=== PATIENT | female | born 1965 | race Caucasian/White ===

== ENCOUNTER 2017-06-18 10:49 | Observation (INO) | payer MEDICAID ==
--- OUTSIDE RECORDS SUMMARY | 2017-06-18 10:52 | XMS REPORT | Clinical Summary ---
:1965 Author Organization [facility] Address [address] [place] [address] Care Team Providers Name Role Phone Kobi Enriquez MD Primary Care Provider Allergies Active Allergy Reactions Severity Noted Date Comments Hydromorphone Itching 05/01/2016 Cyclobenzaprine Rash Low 05/01/2016 Morphine Itching High 05/01/2016 Exacerbates asthma Current Medications Prescription Sig. Disp. Refills Start Date End Date Status PROAIR HFA 90 INL 2 PUFFS PO Q 6 H 5 03/18/2016 Active mcg/actuation inhaler PRF SHORTNESS OF BREATH. ADVAIR DISKUS 250-50 INL 1 PUFF PO BID 5 03/18/2016 Active mcg/dose DISKUS gabapentin (NEURONTIN) TAKE 1 TO 2 CAPSULES 1 04/01/2016 Active 300 mg capsule BY MOUTH EVERY NIGHT AT BEDTIME FOR NERVE PAIN tiZANidine (ZANAFLEX) 4 1 BY MOUTH 2 TIMES A 0 03/03/2016 Active MG tablet DAY prn senna (SENOKOT) 8.6 mg Take 1 tablet by Active tablet mouth 2 (two) times a day as needed. clonIDINE (CATAPRES) Take 0.1 mg by mouth Active 0.1 MG tablet every 8 (eight) hours as needed for high blood pressure (for withdrawal symptoms). oxyCODone (ROXICODONE) Take 30 mg by mouth Active 30 MG immediate release every 8 (eight) hours tablet as needed for moderate pain. Active Problems No known active problems Family History Medical History Relation Name Comments Stroke Mother Relation Name Status Comments Mother Social History Tobacco Use Types Packs/Day Years Used Date Current Every Day Smoker 0.5 28 Smokeless Tobacco: Never Used Alcohol Use Drinks/Week oz/Week Comments Yes occasional Sex Assigned at Date Recorded Not on file Last Filed Vital Signs Not on file Plan of Treatment Health Maintenance Due Date Last Done Comments PAP SMEAR 1986 COLONOSCOPY 12/19/2015 MAMMOGRAM 12/19/2015 SHINGRIX VACCINE (#1) 12/19/2015 INFLUENZA VACCINE 09/08/2017 Implants Implanted Type Area Quilter Fixer Device Expiration Model / Identifier Date Serial / Lot Pump Infsn Synchromed Ii W/ Fltr Sut Loop Prgrmbl Rsvr 20ml - [id number] Neurosurgical N/A: [employer] 09/04/2017 [id number] / Implanted: 05/04/2016 (Quantity not on file) Implants N/A NEUROMODULATION [id number] / [id number] Results Not on fileafter 06/17/2016 Insurance Payer Benefit Plan / Group Subscriber ID Type Phone Address 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
--- NOTE | 2017-06-18 11:48 | RAD REPORT ---
EXAM DESCRIPTION: RAD - Chest Single View - 06/18/2017 11:43 am CLINICAL HISTORY: Chest pain. COMPARISON: None. FINDINGS: Portable technique limits examination quality. The lungs are grossly clear. The heart is normal in size. No displaced fractures. IMPRESSION: No acute intrathoracic process suspected.
[2017-06-18] MEDS ORDERED: ASPIRIN 81 MG CHEWABLE TABLET ONE (11:49)
[2017-06-18] MEDS ORDERED: NA CHLORIDE 0.9% 1,000 ML ONE (11:49)
[2017-06-18 11:52] LABS: Absolute Lymphocytes (CBC) 1.3 K/uL (0.7-4.9); Absolute Monocytes 0.6 K/uL (0.1-1.3); Absolute Neutrophil 1.4 K/uL (1.8-8.0); Eosinophils % 7.2 % (0-4.4); Lymphocytes % 35.3 % (15.3-44.8); MCH 29.8 pg (27.0-35.0); MCV 89.2 fL (80-100); MPV 9.7 fL (7.6-11.3); Monocytes % 16.8 % (3.3-12.3); RBC Red Blood Cell Count 4.71 M/uL (3.86-4.86)
[2017-06-18 11:55] LABS: Protime INR 0.98
[2017-06-18 12:05] LABS: Potassium 3.5 mEq/L (3.6-5.0)
[2017-06-18 12:09] LABS: Albumin 4.4 g/dL (3.2-5.5); Bilirubin Total 0.5 mg/dL (0.3-1.2); CKMB Creatine Kinase MB 3.5 ng/ml (0.3-4.0); Magnesium 1.8 mg/dL (1.8-2.5); Protein, Total 7.5 g/dL (6.0-8.3)
[2017-06-18 12:11] LABS: Bilirubin Direct 0.1 mg/dL (0-0.2)
[2017-06-18] MEDS ORDERED: POTASSIUM CL SA 10 MEQ TAB PO ONE (12:39)
--- NOTE | 2017-06-18 12:41 | EDPHYS ---
Physician Documentation [facility] Name: Susan Bolivar Age: 51 yrs Sex: Female : 1965 Arrival Date: 06/18/2017 Time: 10:52 Bed 2 Private MD: Devonte sEcudero E ED Physician Mohsen Bray HPI: 06/18 11:23 This 51 yrs old Female presents to ER via Ambulatory with complaints of Chest herber Pain. 11:23 The patient or guardian reports chest pain that is located primarily in the substernal herber area, anterior chest wall. Onset: 1 month(s) ago. The pain does not radiate. Associated signs and symptoms: Pertinent positives: None. The chest pain is described as sharp, stabbing. Duration: The patient or guardian reports multiple episodes, with no pattern. The patient has experienced similar episodes in the past, multiple times. 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 - Social history:: Smoking status: Patient uses tobacco products, smokes one-half pack cigarettes per day. - Family history:: not pertinent. ROS: 11:23 Constitutional: Negative for fever, chills, and weight loss, Eyes: Negative for injury, herber pain, redness, and discharge, ENT: Negative for injury, pain, and discharge, Neck: Negative for injury, pain, and swelling, Respiratory: Negative for shortness of breath, cough, wheezing, and pleuritic chest pain, Abdomen/GI: Negative for abdominal pain, nausea, vomiting, diarrhea, and constipation, Back: Negative for injury and pain, : Negative for injury, bleeding, discharge, and swelling, MS/Extremity: Negative for injury and deformity, Skin: Negative for injury, rash, and discoloration, Neuro: Negative for headache, weakness, numbness, tingling, and seizure, Psych: Negative for depression, anxiety, suicide ideation, homicidal ideation, and hallucinations, Allergy/Immunology: Negative for hives, rash, and allergies, Endocrine: Negative for neck swelling, polydipsia, polyuria, polyphagia, and marked weight changes, Hematologic/Lymphatic: Negative for swollen nodes, abnormal bleeding, and unusual bruising. 11:23 Cardiovascular: Positive for chest pain, of the chest. Exam: 11:23 Constitutional: This is a well developed, well nourished patient who is awake, alert, herber and in no acute distress. Head/Face: Normocephalic, atraumatic. Eyes: Pupils equal round and reactive to light, extra-ocular motions intact. Lids and lashes normal. Conjunctiva and sclera are non-icteric and not injected. Cornea within normal limits. Periorbital areas with no swelling, redness, or edema. ENT: Nares patent. No nasal discharge, no septal abnormalities noted. Tympanic membranes are normal and external auditory canals are clear. Oropharynx with no redness, swelling, or masses, exudates, or evidence of obstruction, uvula midline. Mucous membranes moist. Neck: Trachea midline, no thyromegaly or masses palpated, and no cervical lymphadenopathy. Supple, full range of motion without nuchal rigidity, or vertebral point tenderness. No Meningismus. Chest/axilla: Normal chest wall appearance and motion. Nontender with no deformity. No lesions are appreciated. Cardiovascular: Regular rate and rhythm with a normal S1 and S2. No gallops, murmurs, or rubs. Normal PMI, no JVD. No pulse deficits. Respiratory: Lungs have equal breath sounds bilaterally, clear to auscultation and percussion. No rales, rhonchi or wheezes noted. No increased work of breathing, no retractions or nasal flaring. Abdomen/GI: Soft, non-tender, with normal bowel sounds. No distension or tympany. No guarding or rebound. No evidence of tenderness throughout. Back: No spinal tenderness. No costovertebral tenderness. Full range of motion. Skin: Warm, dry with normal turgor. Normal color with no rashes, no lesions, and no evidence of cellulitis. MS/ Extremity: Pulses equal, no cyanosis. Neurovascular intact. Full, normal range of motion. Neuro: Awake and alert, GCS 15, oriented to person, place, time, and situation. Cranial nerves II-XII grossly intact. Motor strength 5/5 in all extremities. Sensory grossly intact. Cerebellar exam normal. Normal gait. Psych: Awake, alert, with orientation to person, place and time. Behavior, mood, and affect are within normal limits. Vital Signs: 11:05 BP 132 / 99; Pulse 82; Resp 17; Temp 98.4; Pulse Ox 98% on R/A; Weight 81.65 kg; Height aj 5 ft. 4 in. (162.56 cm); Pain 5/10; 11:55 BP 118 / 73; Pulse 69; Resp 16; Pulse Ox 97% ; Pain 5/10; jl7 12:45 BP 116 / 78; Pulse 62; Resp 16; Pulse Ox 97% ; jl7 13:30 BP 142 / 85; Pulse 48; Resp 16; Pulse Ox 97% ; jl7 13:56 BP 125 / 92; Pulse 50; Resp 16; Pulse Ox 100% ; jl7 14:30 BP 119 / 71; Pulse 54; Resp 16; Pulse Ox 100% ; jl7 11:05 Body Mass Index 30.90 (81.65 kg, 162.56 cm) MDM: 11:13 Patient medically screened. [facility] 11:27 Data reviewed: vital signs, nurses notes, lab test result(s), EKG, radiologic studies. [facility] 06/18 11:14 Order name: Basic Metabolic Panel; Complete Time: 12:38 [facility] 06/18 11:14 Order name: BNP; Complete Time: 12:38 [facility] 06/18 11:14 Order name: CBC with Diff; Complete Time: 13:56 [facility] 06/18 11:14 Order name: Ckmb; Complete Time: 12:38 [facility] 06/18 11:14 Order name: CPK; Complete Time: 12:38 [facility] 06/18 11:14 Order name: LFT's; Complete Time: 12:38 [facility] 06/18 11:14 Order name: Magnesium; Complete Time: 12:38 [facility] 06/18 11:14 Order name: PT-INR; Complete Time: 12:09 [facility] 06/18 11:14 Order name: Ptt, Activated; Complete Time: 12:09 [facility] 06/18 11:14 Order name: Troponin (emerg Dept Use Only); Complete Time: 12:09 [facility] 06/18 11:14 Order name: XRAY Chest (1 view); Complete Time: 12:09 [facility] 06/18 11:14 Order name: Lipase; Complete Time: 12:38 [facility] 06/18 11:23 Order name: CT Chest For PE Angio; Complete Time: 13:56 [facility] 06/18 13:36 Order name: CBC Smear Scan; Complete Time: 13:56 [facility] 06/18 11:14 Order name: EKG; Complete Time: 11:15 [facility] 06/18 11:14 Order name: Cardiac monitoring; Complete Time: 11:36 [facility] 06/18 11:14 Order name: EKG - Nurse/Tech; Complete Time: 11:36 [facility] 06/18 11:14 Order name: IV Saline Lock; Complete Time: 11:36 [facility] 06/18 11:14 Order name: Labs collected and sent; Complete Time: 11:36 [facility] 06/18 11:14 Order name: O2 Per Protocol; Complete Time: 11:36 [facility] 06/18 11:14 Order name: O2 Sat Monitoring; Complete Time: 11:36 [facility] 06/18 12:43 Order name: CONS Physician Consult [facility] 06/18 12:43 Order name: Echo with Doppler EDDE Administered Medications: 11:56 Drug: NS 0.9% 1000 ml Route: IV; Rate: 75 ml/hr; Site: right antecubital; jl7 14:47 Follow up: IV Status: Infusion continued upon admission jl7 11:56 Drug: Aspirin 162 mg Route: PO; jl7 14:47 Follow up: Response: No adverse reaction jl7 12:40 Drug: Potassium Chloride 40 mEq Route: PO; jl7 14:47 Follow up: Response: No adverse reaction jl7 13:27 Drug: Lovenox 1 mg/kg Route: Sub-Q; Site: abdomen; jl7 14:47 Follow up: Response: No adverse reaction jl7 Disposition: 06/18/17 12:40 Hospitalization ordered by Donovan Laureano for Observation. Preliminary diagnosis is Chest pain, unspecified. - Bed requested for Telemetry/MedSurg (observation). - Status is Observation. jl7 - Condition is Stable. - Problem is new. - Symptoms have improved. UTI on Admission? No Signatures: Dispatcher [employer] EDDE Chayo Berumen RN RN dw Myers, Amanda RN Mohsen Coto MD MD cha Leal, Jahala, RN RN jl7 Corrections: (The following items were deleted from the chart) 13:43 12:40 Hospitalization Ordered by Donovan Laureano DO for Observation. Preliminary dw diagnosis is Chest pain, unspecified. Bed requested for Telemetry/MedSurg (observation). Status is Observation. Condition is Stable. Problem is new. Symptoms have improved. UTI on Admission? No. herber 14:48 13:43 06/18/2017 12:40 Hospitalization Ordered by Donovan Laureano DO for Observation. jl7 Preliminary diagnosis is Chest pain, unspecified. Bed requested for Telemetry/MedSurg (observation). Status is Observation. Condition is Stable. Problem is new. Symptoms have improved. UTI on Admission? No. dw
--- NOTE | 2017-06-18 12:41 | ER ---
Nurse's Notes [facility] Name: Susan Bolivar Age: 51 yrs Sex: Female : 1965 Arrival Date: 06/18/2017 Time: 10:52 Bed 2 Private MD: Devonte Escudero E Diagnosis: Chest pain, unspecified Presentation: 06/18 11:03 Presenting complaint: Patient states: Sternal chest pain for 1 month that radiates to aj left jaw and shoulder. Transition of care: patient was not received from another setting of care. Onset of symptoms was May 18, 2017. Initial Sepsis Screen: Does the patient meet any 2 criteria? No. Patient's initial sepsis screen is negative. Does the patient have a suspected source of infection? No. Patient's initial sepsis screen is negative. Care prior to arrival: None. 11:03 Method Of Arrival: Ambulatory 11:03 Acuity: TYRONE 3 aj Triage Assessment: 11:05 General: Appears in no apparent distress. Behavior is calm, cooperative. Pain: aj Complains of pain in chest Pain currently is 5 out of 10 on a pain scale. Neuro: Level of Consciousness is awake, alert, obeys commands, Oriented to person, place, time, situation. Cardiovascular: Reports chest pain, Capillary refill < 3 seconds in bilateral fingers. Respiratory: Airway is patent Respiratory effort is even, unlabored, Respiratory pattern is regular, symmetrical. Derm: Skin is intact, is healthy with good turgor, Skin is pink, warm \\T\\ dry. normal. 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 - Social history:: Smoking status: Patient uses tobacco products, smokes one-half pack cigarettes per day. - Family history:: not pertinent. Screenin:55 Abuse screen: Denies threats or abuse. Denies injuries from another. Nutritional jl7 screening: No deficits noted. Tuberculosis screening: No symptoms or risk factors identified. Fall Risk IV access (20 points). Total Bergman Fall Scale indicates No Risk (0-24 pts). Assessment: 11:40 General: Appears in no apparent distress. comfortable, Behavior is calm, cooperative, jl7 appropriate for age. Pain: Complains of pain in anterior aspect of left upper chest Pain radiates to left scapular area and left arm Pain currently is 5 out of 10 on a pain scale. at worst was 10 out of 10 on a pain scale. Quality of pain is described as sharp, stabbing, Pain began 1 month ago Is continuous. Neuro: Level of Consciousness is awake, alert, obeys commands, Oriented to person, place, time, situation. Cardiovascular: Heart tones S1 S2 present Patient's skin is warm and dry. Rhythm is sinus rhythm. Respiratory: Airway is patent Respiratory effort is even, unlabored, Respiratory pattern is regular, symmetrical, Breath sounds are clear bilaterally. GI: Reports "I have been nauseous a few times in the past month." Patient currently denies diarrhea, vomiting. : No signs and/or symptoms were reported regarding the genitourinary system. EENT: No signs and/or symptoms were reported regarding the EENT system. Derm: Skin is pink, warm \\T\\ dry. Musculoskeletal: No signs and/or symptoms reported regarding the musculoskeletal system. 12:30 Reassessment: Patient appears in no apparent distress at this time. No changes from jl7 previously documented assessment. Patient and/or family updated on plan of care and expected duration. Pain level reassessed. Patient is alert, oriented x 3, equal unlabored respirations, skin warm/dry/pink. 13:30 Reassessment: Patient appears in no apparent distress at this time. Patient and/or jl7 family updated on plan of care and expected duration. Pain level reassessed. Patient is alert, oriented x 3, equal unlabored respirations, skin warm/dry/pink. 14:30 Reassessment: No changes from previously documented assessment. Patient and/or family jl7 updated on plan of care and expected duration. Pain level reassessed. Patient is alert, oriented x 3, equal unlabored respirations, skin warm/dry/pink. Vital Signs: 11:05 BP 132 / 99; Pulse 82; Resp 17; Temp 98.4; Pulse Ox 98% on R/A; Weight 81.65 kg; Height aj 5 ft. 4 in. (162.56 cm); Pain 5/10; 11:55 BP 118 / 73; Pulse 69; Resp 16; Pulse Ox 97% ; Pain 5/10; jl7 12:45 BP 116 / 78; Pulse 62; Resp 16; Pulse Ox 97% ; jl7 13:30 BP 142 / 85; Pulse 48; Resp 16; Pulse Ox 97% ; jl7 13:56 BP 125 / 92; Pulse 50; Resp 16; Pulse Ox 100% ; jl7 14:30 BP 119 / 71; Pulse 54; Resp 16; Pulse Ox 100% ; jl7 11:05 Body Mass Index 30.90 (81.65 kg, 162.56 cm) aj ED Course: 10:52 Patient arrived in ED. mr 10:52 Devonte Escudero MD is Private Physician. mr 11:04 Triage completed. aj 11:05 Arm band placed on left wrist. Patient placed in an exam room. aj 11:11 Joel Zepeda RN is Primary Nurse. ae1 11:12 Mohsen Bray MD is Attending Physician. herber 11:19 EKG done, by medical chief technician. reviewed by Mohsen Bray MD. at1 11:36 Initial lab(s) drawn, by sc, sent to lab. EKG done, by medical chief technician. reviewed by Mohsen Bray MD. Inserted saline lock: 22 gauge in right antecubital area, using aseptic technique. Blood collected. 11:37 X-ray completed. Portable x-ray completed in exam room. Patient tolerated procedure ml well. 11:43 XRAY Chest (1 view) In Process Unspecified. EDMS 11:46 Primary Nurse role handed off by Joel Zepeda, LARISSA jl7 11:46 Angela Otoole, LARISSA is Primary Nurse. jl7 11:55 Patient has correct armband on for positive identification. Placed in gown. Bed in low jl7 position. Call light in reach. Side rails up X2. classroom monitor on. Pulse ox on. NIBP on. Warm blanket given. 11:55 Patient maintains SpO2 saturation greater than 95% on room air. jl7 12:[address] via stretcher. jg1 12:32 CT Chest For PE Angio In Process Unspecified. EDMS 12:39 Donovan Laureano DO is Hospitalizing Provider. herber 14:46 No provider procedures requiring assistance completed. Patient admitted, IV remains in jl7 place. Administered Medications: 11:56 Drug: NS 0.9% 1000 ml Route: IV; Rate: 75 ml/hr; Site: right antecubital; jl7 14:47 Follow up: IV Status: Infusion continued upon admission jl7 11:56 Drug: Aspirin 162 mg Route: PO; jl7 14:47 Follow up: Response: No adverse reaction jl7 12:40 Drug: Potassium Chloride 40 mEq Route: PO; jl7 14:47 Follow up: Response: No adverse reaction jl7 13:27 Drug: Lovenox 1 mg/kg Route: Sub-Q; Site: abdomen; jl7 14:47 Follow up: Response: No adverse reaction jl7 Outcome: 12:40 Decision to Hospitalize by Provider. [facility] 14:46 Admitted to Med/surg accompanied by tech, family with patient, via wheelchair, room jl7 205, with chart, Report called to LARISSA Lynn 14:46 Condition: stable 14:46 Discharge instructions given to patient, family, Instructed on the need for admit, Demonstrated understanding of instructions. 14:48 Patient left the ED. jl7 Signatures: Dispatcher [employer] EDNikolay Lagos jb1 Charlee Angulo, RN Mohsen Coto MD MD cha Rivera, Maria mr Garcia, Liliana Pineda, Charlee Brown, pattern fitter EKG Tat1 Joel Zepeda RN RN ae1 Angela Otoole RN RN jl7
--- NOTE | 2017-06-18 12:46 | RAD REPORT ---
EXAM DESCRIPTION: CT - Chest For Pe Angio - 06/18/2017 12:32 pm CLINICAL HISTORY: Chest pain COMPARISON: None. TECHNIQUE: Dynamically enhanced axial 3 mm thick images of the chest were obtained during administra tion of <100> mL Isovue 370 IV contrast. Coronal and oblique reconstruction images were generated and reviewed. Exam utilizes a protocol for optimal evaluation of pulmonary arterial tree. All CT scans are performed using dose optimization technique as appropriate and may include automated exposure control or mA/KV adjustment according to patient size. FINDINGS: A pulmonary embolus is not seen. A thoracic aortic aneurysm is not noted. A pleural effusion is not seen. A pericardial effusion is not seen. A lung consolidation is not present. IMPRESSION: Negative for a pulmonary embolism.
[2017-06-18] MEDS ORDERED: ENOXAPARIN 80 MG/0.8 ML SQ ONE (13:08)
[2017-06-18] MEDS ORDERED: IPRATROPIUM BROM 0.5MG/2.5ML NEB PRN (13:23)
[2017-06-18] MEDS ORDERED: ONDANSETRON 4 MG/2 ML VIAL IV PRN (13:23)
[2017-06-18] MEDS ORDERED: NITROGLYCERIN 0.4 MG/TAB SL PRN (13:23)
[2017-06-18] MEDS ORDERED: HYDROCODONE/APAP 7.5/325 MG TAB PO PRN (13:23)
[2017-06-18] MEDS ORDERED: ALBUTEROL 2.5 MG/3 ML NEB SOL NEB PRN (13:23)
[2017-06-18] MEDS ORDERED: ACETAMINOPHEN 500 MG TAB PO PRN (13:23)
[2017-06-18] MEDS ORDERED: TIZANIDINE 4 MG TABLET PO PRN (13:23)
--- NOTE | 2017-06-18 13:34 | P.HP ---
Certification for Inpatient Patient admitted to: Observation With expected LOS: <2 Midnights Patient will require the following post-hospital care: None Practitioner: I am a practitioner with admitting privileges, knowledge of patient current condition, hospital course, and medical plan of care. Services: Services provided to patient in accordance with Admission requirements found in Title 42 Section 412.3 of the Code of Federal Regulations Patient History Date of Service: 06/18/17 Primary Care Provider: Dr. Escudero; Pain management-Dr. Hill([place]) Reason for admission: Chest pain History of Present Illness: 51-year-old female presented emergency room with chest pain. Patient reported chest pain to the substernal region. It was sharp in nature. She rated the pain about a 10/10. It lasted for several min. It radiated to the back and neck. If associated with some nausea. No vomiting noted. She did not have any shortness of breath or fever at that time. The patient came to the ER for evaluation. In the ER that the patient was evaluated. Initial blood pressure was within normal range. No significant EKG changes noted. CBC unremarkable. Potassium 3.5, creatinine 0.89 with a GFR 67. Troponin less than 0.03. CT of the chest showed no pulmonary embolism or infiltrate. Chest x-ray unremarkable. Due to nature of her symptoms the patient was admitted for evaluation. When I saw the patient in the ER, she was without any significant pain. Patient with history of chronic pain. She has a pain pump and takes need multiple medications for pain. Patient also has some anxiety. Patient smokes about a half a pack per day and drinks on occasion. 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 She has 4 children. 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 - Family History Mother -: Heart disease - Social History Smoking Status: Heavy Tobacco smoker (>10 cigarettes/day) Counseled patient to stop smoking for: less than 10 minutes Smoking therapy provided: Yes Patient receptive to therapy: Yes Alcohol use: Yes CD- Drugs: No Caffeine use: Yes Place of Residence: Home Review of Systems General: As per HPI Eyes: Unremarkable ENT: Unremarkable Respiratory: Unremarkable Cardiovascular: Chest Pain, As per HPI Gastrointestinal: Nausea, As per HPI Genitourinary: Unremarkable Musculoskeletal: Back Pain, As per HPI Integumentary: Unremarkable Neurological: Unremarkable Lymphatics: Unremarkable Physical Examination - Physical Exam General: Alert, In no apparent distress, Oriented x3, Cooperative HEENT: Atraumatic, Normocephalic, PERRLA, Mucous membr. moist/pink Neck: Supple, No Thyromegaly Respiratory: Clear to auscultation bilaterally, Normal air movement Cardiovascular: Normal pulses, Regular rate/rhythm Gastrointestinal: Normal bowel sounds, Soft and benign, Non-distended, No tenderness, No masses, No rebound, No guarding Musculoskeletal: No erythema, No tenderness, No warmth Integumentary: No tenderness/swelling, No erythema, No warmth, No cyanosis Neurological: Normal speech, Normal strength at 5/5 x4 extr, Normal tone, Normal affect Lymphatics: No axilla or inguinal lymphadenopathy - Studies Laboratory Data (last 24 hrs) 06/18/17 11:30: PT 11.6, INR 0.98, APTT 29.3 06/18/17 11:30: WBC 3.6 L, Hgb 14.0, Hct 42.0, Plt Count 192 06/18/17 11:30: B-Natriuretic Peptide 24 06/18/17 11:30: Sodium 139, Potassium 3.5 L, BUN 12, Creatinine 0.89, Glucose 91 , Magnesium 1.8, Total Bilirubin 0.5, AST 25, ALT 20, Alkaline Phosphatase 83, Lipase 15 L Assessment and Plan - Problems (Diagnosis) (1) Chest pain Current Visit: Yes Status: Acute Plan: No significant EKG changes noted. Will continue monitor cardiac enzymes. Echocardiogram ordered. If unremarkable anticipate patient can be discharged later today. Will discuss with cardiology. Will check urine drug screen. Qualifiers: Chest pain type: unspecified Qualified Code(s): R07.9 - Chest pain, unspecified (2) Chronic back pain Current Visit: Yes Status: Chronic Plan: Continue with medication. Patient has pain pump in place. Qualifiers: Back pain laterality: unspecified (3) Anxiety Current Visit: Yes Status: Suspected Plan: Suspect anxiety. Patient appeared slightly anxious. Will check urine drug screen. (4) GERD (gastroesophageal reflux disease) Current Visit: Yes Status: Chronic Plan: Will continue with medication. (5) Tobacco abuse Current Visit: Yes Status: Chronic Plan: Tobacco cessation education will be provided. (6) Alcohol use Current Visit: Yes Status: Chronic Plan: Will provide cessation education. Discharge Plan: Home Plan to discharge in: 24 Hours - Advance Directives Does patient have a Living Will: No Does patient have a Durable POA for Healthcare: No - Code Status/Comfort Care Code Status Assessed: Yes Time Spent Managing Pts Care (In Minutes): 55
[2017-06-18 13:36] LABS: Blood Morphology Comment NOT SEEN (NOT SEEN); Platelet Estimate ADEQ; Urine White Blood Cell Casts OK
--- NOTE | 2017-06-18 15:50 | EKG ---
Test Date: 2017-06-18 Test Time: 11:19:56 Angular Developer: KAYLA MEASUREMENT RESULTS: Intervals: Rate: 67 CT: 158 QRSD: 92 QT: 372 QTc: 393 [place]: P: 21 CT: 158 QRS: 12 T: 1 INTERPRETIVE STATEMENTS: Normal sinus rhythm Nonspecific T wave abnormality Abnormal ECG No previous ECG available for comparison Electronically Signed On 06-18-17 15:48:59 CDT by Fermín Hawthorne
[2017-06-18 16:44] VITALS: BMI 31.4
--- NOTE | 2017-06-18 17:40 | ECHO ---
HEIGHT: 5 ft 4 in WEIGHT: 183 lb 6.4 oz DATE OF STUDY: 06/18/[address]: Donovan Laureano DO 2-DIMENSIONAL: YES M.MODE: YES DOPPLER: YES COLOR FLOW: YES TDS: PORTABLE: DEFINITY: BUBBLE STUDY: DIAGNOSIS: CHEST PAIN CARDIAC HISTORY: CATHERIZATION: NO SURGERY: NO PROSTHETIC VALVE: NO PACEMAKER: NO MEASUREMENTS (cm) DIASTOLIC (NORMALS) SYSTOLIC (NORMALS) IVSd 1.0 (0.6-1.2) LA Diam 3.2 (1.9-4.0) LVEF 60% LVIDd 4.1 (3.5-5.7) LVIDs 2.8 (2.0-3.5) %FS 32% LVPWd 1.1 (0.6-1.2) Ao Diam 2.8 (2.0-3.7) 2 DIMENSIONAL ASSESSMENT: RIGHT ATRIUM: NORMAL LEFT ATRIUM: NORMAL RIGHT VENTRICLE: NORMAL LEFT VENTRICLE: NORMAL TRICUSPID VALVE: NORMAL MITRAL VALVE: NORMAL PULMONIC VALVE: NORMAL AORTIC VALVE: NORMAL PERICARDIAL EFFUSION: NONE AORTIC ROOT: NORMAL LEFT VENTRICULAR WALL MOTION: NORMAL DOPPLER/COLOR FLOW: NORMAL COMMENTS: NORMAL 2-DIMENSIONAL ECHOCARDIOGRAM WITH DOPPLER. NO WALL MOTION ABNORMALITY. NO EFFUSION. TECHNOLOGIST: JOVANI SAAVEDRA
[2017-06-18 19:42] LABS: CKMB Creatine Kinase MB 2.7 ng/ml (0.3-4.0)
[2017-06-18] MEDS ORDERED: ARFORMOTEROL TARTRATE 15 MCG/2 ML VIAL.NEB NEB SCH (20:00)
[2017-06-18 20:21] VITALS: O2SAT 92
[2017-06-18 20:43] VITALS: BP 114/53; TEMP 98.5
[2017-06-18] MEDS ORDERED: GABAPENTIN 300 MG CAP PO SCH (21:00)
--- NOTE | 2017-06-19 03:17 | P.DS ---
Discharge Date: 06/18/17 Primary Care Provider: Dr. Escudero; Pain management-Dr. Hill([place]) Disposition: ROUTINE DISCHARGE Discharge Condition: GOOD Reason for Admission: Chest pain Consultations: Cardiology Brief History of Present Illness: 51-year-old female presented emergency room with chest pain. Patient reported chest pain to the substernal region. It was sharp in nature. She rated the pain about a 10/10. It lasted for several min. It radiated to the back and neck. If associated with some nausea. No vomiting noted. She did not have any shortness of breath or fever at that time. The patient came to the ER for evaluation. In the ER that the patient was evaluated. Initial blood pressure was within normal range. No significant EKG changes noted. CBC unremarkable. Potassium 3.5, creatinine 0.89 with a GFR 67. Troponin less than 0.03. CT of the chest showed no pulmonary embolism or infiltrate. Chest x-ray unremarkable. Due to nature of her symptoms the patient was admitted for evaluation. When I saw the patient in the ER, she was without any significant pain. Patient with history of chronic pain. She has a pain pump and takes need multiple medications for pain. Patient also has some anxiety. Patient smokes about a half a pack per day and drinks on occasion. Patient works at a local [employer] Hospital Course: Patient did well in hospital. Patient was ruled out with serial troponins and she is wanting to go home. Plan to discharge with outpt follow-up with Cardiology in 1 week. Vital Signs/Physical Exam: Temp Pulse Resp BP Pulse Ox 98.5 F 62 20 114/53 L 98 06/18/17 20:00 06/18/17 20:00 06/18/17 20:00 06/18/17 20:00 06/18/17 20:00 General: Alert, In no apparent distress, Oriented x3 Laboratory Data at Discharge: WBC 3.6 K/uL (4.3-10.9) L 06/18/17 11:30 Hgb 14.0 g/dL (12.0-15.0) 06/18/17 11:30 Hct 42.0 % (36.0-45.0) 06/18/17 11:30 Plt Count 192 K/uL (152-406) 06/18/17 11:30 PT 11.6 SECONDS (9.5-12.5) 06/18/17 11:30 INR 0.98 06/18/17 11:30 APTT 29.3 SECONDS (24.3-36.9) 06/18/17 11:30 Sodium 139 mEq/L (135-145) 06/18/17 11:30 Potassium 3.5 mEq/L (3.6-5.0) L 06/18/17 11:30 BUN 12 mg/dL (6-20) 06/18/17 11:30 Creatinine 0.89 mg/dL (0.44-1.00) 06/18/17 11:30 Glucose 91 mg/dL (65-120) 06/18/17 11:30 Magnesium 1.8 mg/dL (1.8-2.5) 06/18/17 11:30 Total Bilirubin 0.5 mg/dL (0.3-1.2) 06/18/17 11:30 AST 25 IU/L (10-42) 06/18/17 11:30 ALT 20 IU/L (10-60) 06/18/17 11:30 Alkaline Phosphatase 83 IU/L (42-121) 06/18/17 11:30 Troponin I < 0.03 ng/mL (<0.03) 06/18/17 19:00 B-Natriuretic Peptide 24 pg/ml (<=100) 06/18/17 11:30 Lipase 15 U/L (22-51) L 06/18/17 11:30 Home Medications: Aspirin [Ecotrin 81 MG] 81 mg PO DAILY #30 tablet. 06/18/17 Fluticasone/Salmeterol [Advair 250-50 Diskus] 1 each IH BID 06/18/17 Gabapentin [Gralise] 300 mg PO BEDTIME 06/18/17 Ipratropium/Albuterol Sulfate [Combivent Respimat Inhal [place]] 4 gm IH DAILY 12/26 Metoprolol Tartrate [Lopressor] 25 mg PO BID #60 tab 06/18/17 Omeprazole 20 mg PO DAILY 06/18/17 Oxycodone HCl [Oxycodone HCl ER] 30 mg PO DAILY PRN 06/18/17 Tizanidine [Zanaflex*] 4 mg PO BID 06/18/17 New Medications: Aspirin [Ecotrin 81 MG] 81 mg PO DAILY #30 tablet. Metoprolol Tartrate [Lopressor] 25 mg PO BID #60 tab Patient Discharge Instructions: OK TO DC IV AND DC HOME. FOLLOW-UP WITH PRIMARY CARE PROVIDER IN 1-2 WEEKS. FOLLOW-UP WITH CARDIOLOGY IN 1-2 WEEKS. RETURN TO THE ER IF symptoms worsens. CALL DR. ANN AT [phone] IF ANY QUESTIONS REGARDING HOSPITAL STAY. PLEASE CALL THE FLOOR AT [phone] IF ANY MEDICATION OR NURSING QUESTIONS. Diet: AHA Activity: Fall precautions Time spent managing pt's care (in minutes): 10
[2017-06-19] MEDS ORDERED: PANTOPRAZOLE 40MG TABLET PO SCH (06:30)
[2017-06-19] MEDS ORDERED: ASPIRIN EC 81 MG TAB PO SCH (09:00)
[2017-06-19] MEDS ORDERED: ENOXAPARIN 40 MG/0.4 ML SQ SCH (09:00)
== END 2017-06-18 20:55 | disposition home or self-care (01) ==
LOC: ER 10:49 → ERHOLD 12:41 → 2ND 14:37
PROVIDERS: ADMIT Family Medicine; ATTEND Family Medicine
DX: R07.9 Chest pain, unspecified (principal); M54.9 Dorsalgia, unspecified; F17.210 Nicotine dependence, cigarettes, uncomplicated; K21.9 Gastro-esophageal reflux disease without esophagitis; Z72.89 Other problems related to lifestyle
CPT/HCPCS: 36415; 71045; 71275; 80048; 80076; 82550; 82553; 83690; 83735; 83880; 84484; 85025; 85610; 85730; 93005; 93306; 94640; 96360; 96361; 96372; 99285; G0378; J1650; J7030; J7605; Q9967

== ENCOUNTER 2017-10-20 05:57 | Day surgery (SDC) | payer OTHER ==
[2017-10-14 14:34] LABS: Protime INR 0.92
[2017-10-14 14:35] LABS: Absolute Lymphocytes (CBC) 1.7 K/uL (0.7-4.9); Absolute Monocytes 0.4 K/uL (0.1-1.3); Absolute Neutrophil 2.9 K/uL (1.8-8.0); Basophils % 0.8 % (0-1.3); Eosinophils % 5.6 % (0-4.4); Hematocrit 37.3 % (36.0-45.0); Lymphocytes % 31.4 % (15.3-44.8); MCH 30.6 pg (27.0-35.0); MCV 88.6 fL (80-100); MPV 9.3 fL (7.6-11.3); Monocytes % 7.3 % (3.3-12.3); RBC Red Blood Cell Count 4.21 M/uL (3.86-4.86)
--- NOTE | 2017-10-14 14:45 | RAD REPORT ---
EXAM DESCRIPTION: Sarah Jasmine (2 Views)10/14/2017 2:39 pm CLINICAL HISTORY: Preop for rotator cuff repair surgery COMPARISON: June 2017 FINDINGS: The lungs appear clear of acute infiltrate. The heart is normal size IMPRESSION: No acute abnormalities displayed
[2017-10-14 14:49] LABS: Potassium 3.7 mmol/L (3.5-5.1)
--- NOTE | 2017-10-15 07:36 | EKG ---
Test Date: 2017-10-14 Test Time: 14:12:22 Steam Heating Installer: MARIET[place] MEASUREMENT RESULTS: Intervals: Rate: 64 AR: 162 QRSD: 92 QT: 398 QTc: 410 [place]: P: 40 AR: 162 QRS: 31 T: 17 INTERPRETIVE STATEMENTS: Normal sinus rhythm Normal ECG Compared to ECG 06/18/2017 11:19:56 T-wave abnormality no longer present Electronically Signed On 10-15-17 07:34:17 CDT by Chris Polanco
[2017-10-20] MEDS ORDERED: CEFAZOLIN/SWI 2gm 2 GM/20 ML SYR IV SCH (06:00)
[2017-10-20 06:25] LABS: Specific Gravity 1.025 (1.005-1.030)
[2017-10-20] MEDS ORDERED: Ringers Lactate 1,000 ML IV ONE ×2 (06:41→08:24)
[2017-10-20] MEDS ORDERED: CEFAZOLIN/SWI 1gm 1 GM/10 ML SYR ONE ×2 (06:41→08:01)
[2017-10-20] MEDS ORDERED: EPINEPHRINE/PF 1 MG/ML AMP ONE (06:49)
[2017-10-20] MEDS ORDERED: LIDOCAINE 2% MPF 5 ML VIAL ONE (07:01)
[2017-10-20] MEDS ORDERED: MIDAZOLAM HCL 2 MG/2 ML INJ ONE (07:01)
[2017-10-20] MEDS ORDERED: FENTANYL CITR 250 MCG/5 ML ONE (07:01)
[2017-10-20] MEDS ORDERED: PROPOFOL 200 MG/20 ML VIAL IV ONE (07:01)
[2017-10-20] MEDS ORDERED: ROCURONIUM 50 MG/5 ML VIAL IV ONE (07:02)
[2017-10-20] MEDS ORDERED: DEXAMETHASONE 4 MG/ML VIAL ONE (07:10)
[2017-10-20] MEDS ORDERED: ROPLVACAINE HCL 40 ML ONE (07:11)
[2017-10-20] MEDS ORDERED: FENTANYL CITR 100 MCG/2 ML ONE (07:19)
[2017-10-20] MEDS ORDERED: EPHEDRINE SULF 50 MG/10 ML SYR ONE (07:50)
[2017-10-20] MEDS ORDERED: GLYCOPYRROLATE 0.2 MG/ML SYR ONE (07:55)
--- OUTSIDE RECORDS SUMMARY | 2017-10-20 08:23 | XMS REPORT | Clinical Summary ---
:1965 Author Organization [facility] Address [address] [place] [address] Care Team Providers Name Role Phone Kobi [...] Health Maintenance Due Date Last Done Comments CERVICAL CANCER SCREENING 1986 BREAST CANCER SCREENING 12/19/2015 COLON CANCER SCREENING 12/19/2015 SHINGRIX VACCINE (#1) 12/19/2015 INFLUENZA VACCINE 09/08/2017 Implants Implanted Type Area Sole Cementer Device Expiration Model / Identifier Date Serial / Lot Pump Infsn Synchromed Ii W/ Fltr Sut Loop Prgrmbl [id number] 20ml - [id number] Neurosurgical N/A: [employer] 09/04/2017 [id number] / Implanted: 05/04/2016 (Quantity not on file) Implants N/A NEUROMODULATION [id number] / [id number] Results Not on fileafter 10/19/2016 Insurance Payer Benefit Plan / Group Subscriber ID Type Phone Address 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
[2017-10-20] MEDS ORDERED: KETOROLAC 30 MG/ML INJ ONE (08:57)
--- NOTE | 2017-10-20 09:12 | P.BOP ---
Preoperative diagnosis: right shoulder rotator cuff tear, bicipital tenosynovitis Postoperative diagnosis: right shoulder rotator cuff tear, SLAP tear Primary procedure: right shoulder arthroscopic rotator cuff repair Secondary procedure: right shoulder arthroscopic SLAP debridement Orderly: NONE,NONE Estimated blood loss: <5 cc Specimen: none Findings: see dictation Anesthesia: General Complications: None Implants: 5.5 mm Arthrex corkscrew, 4.75 mm swivelock Fluids & blood products: per anesthesia record Transferred to: Recovery Room Condition: Good
--- NOTE | 2017-10-20 10:00 | RAD REPORT ---
EXAM DESCRIPTION: RAD - Shoulder 1 View - 10/20/2017 9:53 am CLINICAL HISTORY: Pain and swelling. COMPARISON: Shoulder Rt Wo Cont dated 09/06/2017 FINDINGS: No fracture or dislocation is seen. A small amount of air is seen in the soft tissues of t he lateral shoulder.
[2017-10-20 11:39] VITALS: BP 101/57; TEMP 97.5; O2SAT 96
--- NOTE | 2017-10-20 23:05 | OP ---
Date of Procedure: 10/20/2017 Surgeon: Rommel Rondon MD Preoperative Diagnoses: 1. Right shoulder rotator cuff tear. 2. Right shoulder bicipital tenosynovitis. Postoperative Diagnoses: 1. Right shoulder rotator cuff tear. 2. Right shoulder type 1 SLAP tear. Procedure Performed: 1. Right shoulder arthroscopic rotator cuff repair. 2. Right shoulder arthroscopic SLAP tear debridement. Anesthesia: General endotracheal. Fluids: Per Anesthesia record. Estimated Blood Loss: Less than 5 cc. Specimens: None. Complications: None. Implants: A 5.5 mm Arthrex corkscrew and a 4.75 mm SwiveLock. Indication For Procedure: Susan is a 51-year-old female presenting to my clinic with signs and symptoms and MRI findings consistent with a right shoulder rotator cuff tear. The patient is in significant pain and loss of function. I discussed with the patient at length risks and benefits associated with operative and nonoperative treatment. She expressed understanding and elected to proceed with operative treatment. Description Of Procedure: After informed consent was obtained, the patient was identified in the preoperative holding area. The right upper extremity was marked. The patient then underwent an interscalene nerve block performed by anesthesia in the PACU prior to surgery. She was then taken back to the operating room, transferred to operating table in supine fashion, placed under general endotracheal anesthesia. She was then placed in the beach chair position with her extremities well padded. The right upper extremity was then examined. The patient had full range of motion. There was no instability of her shoulder joint. The right upper extremity was then prepped and draped in usual sterile fashion. A time-out was initiated. The correct patient and procedure were confirmed and identified. The patient did receive preoperative prophylactic antibiotics. Via the posterior portal position, a spinal needle was introduced into the glenohumeral joint and the shoulder was injected with 30 cc of normal saline to distend the capsule. A posterior portal was created and arthroscope was brought in via the posterior portal position. A standard anterior portal was then created and a cannula was placed and a diagnostic arthroscopy was performed. The patient was noted to have some fraying and tearing of the superior labrum consistent with a type 1 SLAP tear. There was no instability noted of the superior labrum, anterior-posterior labrum. The SLAP tear was then debrided using an arthroscopic shaver to stable borders. There was no loose bodies found within the axillary pouch. There was some mild chondromalacia noted of the glenoid surface, but no significant chondromalacia noted of the humeral head. The subscapularis was found to be intact and biceps anchor was found to be intact without any significant fraying or damage. The biceps tendon was then brought into the shoulder joint using a probe, and there was no significant fraying or damage of the extra-articular portion of biceps tendon. The arthroscope was then brought in and evaluated the articular side of the supraspinatus where there was noted to be a full-thickness tear of the supraspinatus. A standard lateral portal was created in an outside-in direction. An obturator was then introduced into the glenohumeral joint through the tear consistent with a full-thickness tear. The supraspinatus tear was then debrided using arthroscopic shaver, and the greater tuberosity was debrided using an arthroscopic shaver to create a bleeding bony bed. The arthroscope was then brought into the subacromial space, and subacromial bursectomy was performed. Tear within the supraspinatus was again noted from the bursal side and debrided using the arthroscopic shaver. A cannula was placed via the lateral portal and a stab incision was made just lateral to the acromion, and a double loaded Arthrex corkscrew anchor was placed just lateral to the articular surface. The 4 sutures were then passed through the torn supraspinatus in a horizontal mattress fashion, and they were tied. The sutures were then brought together and placed over the lateral aspect of the greater tuberosity for lateral row fixation. There was good overall reduction of the supraspinatus tear onto the greater tuberosity and the footprint. The remaining sutures were then cut. There was no significant fraying of the coracoacromial ligament, and decompression was deemed not necessary. The arthroscopic instruments were then removed without complication. The subcutaneous tissue was approximated using a 2-0 Vicryl and portals, and skin was approximated using a 3-0 Monocryl. Sterile dressings were applied. The patient was awakened and placed in a shoulder immobilizer, transferred to PACU in stable condition. Postoperative Plan: Susan will begin physical therapy in 2 weeks and follow the medium rotator cuff repair protocol. SARA/FER Voice ID: [id number] Report ID: [id number] MTDD
== END 2017-10-20 12:05 | disposition home or self-care (01) ==
LOC: OR 05:57
PROVIDERS: ATTEND Orthopaedic Surgery Sports Medicine
PROC: 0RBJ4ZZ Excision of Right Shoulder Joint, Percutaneous Endoscopic Approach (ICD-10-PCS; 2017-10-20)
PROC: 0LQ14ZZ Repair Right Shoulder Tendon, Percutaneous Endoscopic Approach (ICD-10-PCS; principal; 2017-10-20 07:30)
DX: M75.121 Complete rotator cuff tear or rupture of right shoulder, not specified as traumatic (principal); S43.431A Superior glenoid labrum lesion of right shoulder, initial encounter; M75.21 Bicipital tendinitis, right shoulder; M75.41 Impingement syndrome of right shoulder; I10 Essential (primary) hypertension; K21.9 Gastro-esophageal reflux disease without esophagitis; F17.210 Nicotine dependence, cigarettes, uncomplicated; Z82.49 Family history of ischemic heart disease and other diseases of the circulatory system
CPT/HCPCS: 36415; 71046; 73020; 80048; 81025; 85025; 85610; 85730; 93005; J0171; J0690; J2250; J2795; J3010

== ENCOUNTER 2020-07-20 07:35 | Emergency (ER) | payer OTHER ==
[2020-07-20] MEDS ORDERED: ONDANSETRON 4 MG/2 ML VIAL ONE (08:32)
[2020-07-20] MEDS ORDERED: MAGNES/ALUMIN/SIMET 30ML UCUP ONE (08:32)
[2020-07-20] MEDS ORDERED: LIDOCAINE VISCOUS 2% SOLN 15 ML UDC ONE (08:33)
[2020-07-20 08:41] LABS: Absolute Lymphocytes (CBC) 1.6 K/uL (0.7-4.9); Basophils % 0.4 % (0-1.3); Hematocrit 42.4 % (36.0-45.0); Lymphocytes % 18.6 % (15.3-44.8); MPV 8.7 fL (7.6-11.3); RBC Red Blood Cell Count 4.71 M/uL (3.86-4.86)
--- NOTE | 2020-07-20 08:56 | RAD REPORT ---
EXAM DESCRIPTION: US - Abdomen Exam Limited - 07/20/2020 8:46 am CLINICAL HISTORY: EPIGASTRIC PAIN COMPARISON: Small Bowel Series dated 07/16/2020 FINDINGS: A 3 millimeter nonshadowing echogenic focus is present adherent to the wall of the gallbla dder. Small polyp is more likely than nonshadowing gallstone. No mobile gallstones or measurable nilsa tity of sludge. There is no wall thickening or pericholecystic fluid. No common duct stone or biliary tree dilatation identified. IMPRESSION: Small 3 millimeter gallbladder polyp. No other significant gallbladder or biliary tree finding.
[2020-07-20 09:10] LABS: Albumin 3.7 g/dL (3.4-5.0); Bilirubin Direct 0.2 mg/dL (0-0.2); Bilirubin Total 0.6 mg/dL (0.2-1.0); Potassium 3.8 mmol/L (3.5-5.1)
--- NOTE | 2020-07-20 09:13 | EDPHYS ---
Physician Documentation [facility] Name: Susan Bolivar Age: 54 yrs Sex: Female : 1965 Arrival Date: 07/20/2020 Time: 07:37 Bed 14 Private MD: Devonte Escudero E ED Physician Imer Sharp HPI: 07/20 08:23 This 54 yrs old Female presents to ER via Ambulatory with complaints of rn Epigastric Pain. 08:23 The patient presents with abdominal pain in the epigastric area. Onset: The rn symptoms/episode began/occurred 1 month(s) ago. The symptoms do not radiate. Associated signs and symptoms: Pertinent positives: anorexia, nausea, Pertinent negatives: blood in stools, vomiting blood. The symptoms are described as achy, crampy, intermittent. Modifying factors: The symptoms are alleviated by nothing, the symptoms are aggravated by food, touching the area. Severity of pain: At its worst the pain was moderate in the emergency department the pain is unchanged. The patient has experienced similar episodes in the past. The patient has been recently seen by a physician:. Reports epigastric abd pain for 1 month, has seen GI already, had endoscopy, diagnosed with gastritis and esophagitis, states prescribed antacids but unable to fill due to insurance. . Historical: - Allergies: 07:38 Flexeril; aa5 07:38 Morphine; aa5 - PMHx: 07:38 Chronic pain; aa5 - PSHx: 07:38 Pain pump (fentanyl); aa5 - Immunization history:: Flu vaccine is not up to date. - Social history:: Smoking status: Patient reports the use of cigarette tobacco products, smokes one-half pack cigarettes per day. - Family history:: not pertinent. - Hospitalizations: : No recent hospitalization is reported. ROS: 08:23 Constitutional: Negative for fever, chills, and weight loss, Eyes: Negative for injury, rn pain, redness, and discharge, Neck: Negative for injury, pain, and swelling, Cardiovascular: Negative for chest pain, palpitations, and edema, Respiratory: Negative for shortness of breath, cough, wheezing, and pleuritic chest pain, Abdomen/GI: + epigastric pain Back: Negative for injury and pain, : Negative for injury, bleeding, discharge, and swelling, MS/Extremity: Negative for injury and deformity, Skin: Negative for injury, rash, and discoloration, Neuro: Negative for headache, weakness, numbness, tingling, and seizure. Exam: 08:23 Constitutional: This is a well developed, well nourished patient who is awake, alert, rn and in no acute distress. Head/Face: Normocephalic, atraumatic. Eyes: Periorbital areas with no swelling, redness, or edema. Cardiovascular: Regular rate and rhythm. No pulse deficits. Respiratory: No increased work of breathing, no retractions or nasal flaring. Abdomen/GI: soft, + epigastric tenderness, neg cornejo Skin: Warm, dry with normal turgor. Normal color with no rashes, no lesions, and no evidence of cellulitis. MS/ Extremity: Pulses equal, no cyanosis. Neurovascular intact. Full, normal range of motion. Equal circumference. Neuro: Awake and alert, GCS 15 Vital Signs: 07:44 BP 120 / 86; Pulse 90; Resp 17; Temp 98.1; Pulse Ox 100% ; Weight 99.79 kg; Height 5 ll1 ft. 3 in. (160.02 cm); Pain 10/10; 08:31 BP 116 / 78; Pulse 78; Resp 16; Pulse Ox 96% ; rb3 07:44 Body Mass Index 38.97 (99.79 kg, 160.02 cm) ll1 MDM: 07:38 Patient medically screened. rn 09:11 Differential diagnosis: cholecystitis, Cholelithiasis, gastritis, gastroesophageal rn reflux disease, non-specific abd pain, pancreatitis, esophagitis. Data reviewed: vital signs, nurses notes, lab test result(s), radiologic studies, ultrasound, and as a result, I will discharge patient. Counseling: I had a detailed discussion with the patient and/or guardian regarding: the historical points, exam findings, and any diagnostic results supporting the discharge/admit diagnosis, lab results, radiology results, the need for outpatient follow up, to return to the emergency department if symptoms worsen or persist or if there are any questions or concerns that arise at home. Response to treatment: the patient's symptoms have mildly improved after treatment, and as a result, I will discharge patient. Special discussion: Based on the patient's Hx, exam, and Dx evaluation, there is no indication for emergent surgery or inpatient Tx. It is understood by the patient/guardian that if the Sx's persist or worsen they need to return immediately for re-evaluation. I discussed with the patient/guardian in detail that at this point there is no indication for admission to the hospital. It is understood, however, that if the symptoms persist or worsen the patient needs to return immediately for re-evaluation. Based on the history and exam findings, there is no indication for further emergent testing or inpatient evaluation. I discussed with the patient/guardian the need to see the assignment desk editor for further evaluation of the symptoms. ED course: Stable vitals, labs unremarkable, u/s shows known polyp but no acute process, will dc home with antacids and diet modification for gastritis/esophagitis.. 07/20 07:55 Order name: Basic Metabolic Panel; Complete Time: 09:10 rn 07/20 07:55 Order name: CBC with Diff; Complete Time: 09:00 rn 07/20 07:55 Order name: Hepatic Function; Complete Time: 09:10 rn 07/20 07:55 Order name: Lipase; Complete Time: 09:10 rn 07/20 07:55 Order name: US Abdomen Limited; Complete Time: 09:00 rn 07/20 07:55 Order name: IV Saline Lock; Complete Time: 08:30 rn 07/20 07:55 Order name: Labs collected and sent; Complete Time: 08:30 rn Administered Medications: 08:10 Drug: GI Cocktail without - (Maalox Suspension 30 ml, Lidocaine Liquid 2 % 15 rb3 ml) Route: PO; 09:26 Follow up: Response: No adverse reaction aa5 08:28 Drug: Zofran (Ondansetron) 4 mg Route: IVP; Site: right antecubital; rb3 09:26 Follow up: Response: No adverse reaction aa5 09:21 Drug: ProTONIX (pantoprazole) 40 mg Route: IVP; Site: right antecubital; rb3 09:26 Follow up: Response: No adverse reaction aa5 Disposition: 07/20/20 09:12 Discharged to Home. Impression: Gastritis, unspecified, Esophagitis. - Condition is Stable. - Discharge Instructions: Esophagitis, Gastritis, Adult. - Prescriptions for Protonix 40 mg Oral Tablet - take 1 tablet by ORAL route once daily; 30 tablet. Zofran ODT 4 mg Oral tablet,disintegrating - place 1 tablet by TRANSLINGUAL route every 8 hours As needed; 20 tablet. - Medication Reconciliation Form, Thank You Letter, Antibiotic Education, Prescription Opioid Use, Work release form form. - Follow up: Cecilio Ceron MD; When: As needed; Reason: Recheck today's complaints, Re-evaluation by your physician. - Problem is an ongoing problem. - Symptoms have improved. Signatures: Dispatcher [employer] EDMS Imer Sharp MD MD rn Calderon, Audri RN RN aa5 Sis Maki RN RN ll1 Chinyere Mcginnis, RN RN rb3 Corrections: (The following items were deleted from the chart) 09:26 09:12 07/20/2020 09:12 Discharged to Home. Impression: Gastritis, unspecified; aa5 Esophagitis. Condition is Stable. Forms are Medication Reconciliation Form, Thank You Letter, Antibiotic Education, Prescription Opioid Use. Follow up: Cecilio Ceron; When: As needed; Reason: Recheck today's complaints, Re-evaluation by your physician. Problem is an ongoing problem. Symptoms have improved. rn
--- NOTE | 2020-07-20 09:13 | ER ---
Nurse's Notes [facility] Name: Susna Bolivar Age: 54 yrs Sex: Female : 1965 Arrival Date: 07/20/2020 Time: 07:37 Bed 14 Private MD: Devonte Escudero E Diagnosis: Gastritis, unspecified;Esophagitis Presentation: 07/20 07:44 Chief complaint: Patient states: Epigastric pain for 2 nights. + nausea. Heartburn for ll1 5 months, had scope/colonoscopy done. Found polyp on gallbladder. Coronavirus screen: Client denies travel out of the [place] in the last 14 days. At this time, the client does not indicate any symptoms associated with coronavirus-19. Ebola Screen: Patient denies travel to an Ebola-affected area in the 21 days before illness onset. Initial Sepsis Screen: Does the patient meet any 2 criteria? No. Patient's initial sepsis screen is negative. Does the patient have a suspected source of infection? Yes: Acute abdominal pain. Risk Assessment: Do you want to hurt yourself or someone else? Patient reports no desire to harm self or others. Onset of symptoms was July 18, 2020. 07:44 Method Of Arrival: Ambulatory ll1 07:44 Acuity: TYRONE 3 ll1 Historical: - Allergies: 07:38 Flexeril; aa5 07:38 Morphine; aa5 - PMHx: 07:38 Chronic pain; aa5 - PSHx: 07:38 Pain pump (fentanyl); aa5 - Immunization history:: Flu vaccine is not up to date. - Social history:: Smoking status: Patient reports the use of cigarette tobacco products, smokes one-half pack cigarettes per day. - Family history:: not pertinent. - Hospitalizations: : No recent hospitalization is reported. Screenin:40 Abuse screen: Denies threats or abuse. Nutritional screening: No deficits noted. rb3 Tuberculosis screening: No symptoms or risk factors identified. Fall Risk None identified. Assessment: 07:40 General: Appears in no apparent distress. Behavior is calm, cooperative. Pain: rb3 Complains of pain in epigastric area Pain began x 2 days. Neuro: Level of Consciousness is awake, alert, obeys commands, Oriented to person, place, time, situation. Cardiovascular: Patient's skin is warm and dry. Respiratory: Airway is patent Respiratory effort is even, unlabored, Respiratory pattern is regular, symmetrical. GI: Reports indigestion, heart burn. : No signs and/or symptoms were reported regarding the genitourinary system. 08:40 Reassessment: Patient appears in no apparent distress at this time. Patient and/or rb3 family updated on plan of care and expected duration. Pain level reassessed. Patient is alert, oriented x 3, equal unlabored respirations, skin warm/dry/pink. 09:24 Reassessment: Patient is alert, oriented x 3, equal unlabored respirations, skin aa5 warm/dry/pink. Vital Signs: 07:44 BP 120 / 86; Pulse 90; Resp 17; Temp 98.1; Pulse Ox 100% ; Weight 99.79 kg; Height 5 ll1 ft. 3 in. (160.02 cm); Pain 10/10; 08:31 BP 116 / 78; Pulse 78; Resp 16; Pulse Ox 96% ; rb3 07:44 Body Mass Index 38.97 (99.79 kg, 160.02 cm) ll1 ED Course: 07:37 Patient arrived in ED. am2 07:37 Devonte Escudero MD is Private Physician. am2 07:38 Imer Sharp MD is Attending Physician. rn 07:38 Arm band placed on Patient placed in an exam room, on a stretcher. aa5 07:40 Patient has correct armband on for positive identification. Bed in low position. Call rb3 light in reach. Side rails up X 1. Pulse ox on. NIBP on. 07:46 Triage completed. ll1 07:56 Chinyere Mcginnis, RN is Primary Nurse. rb3 08:25 Missed attempt(s): 22 gauge in right antecubital area. Bleeding controlled, band aid rb3 applied, catheter tip intact. 08:28 Inserted saline lock: 22 gauge in right antecubital area, using aseptic technique. rb3 Blood collected. 08:46 US Abdomen Limited In Process Unspecified. EDMS 09:12 Cecilio Ceron MD is Referral Physician. rn 09:26 No provider procedures requiring assistance completed. IV discontinued, intact, aa5 bleeding controlled, No redness/swelling at site. Pressure dressing applied. Administered Medications: 08:10 Drug: GI Cocktail without - (Maalox Suspension 30 ml, Lidocaine Liquid 2 % 15 rb3 ml) Route: PO; 09:26 Follow up: Response: No adverse reaction aa5 08:28 Drug: Zofran (Ondansetron) 4 mg Route: IVP; Site: right antecubital; rb3 09:26 Follow up: Response: No adverse reaction aa5 09:21 Drug: ProTONIX (pantoprazole) 40 mg Route: IVP; Site: right antecubital; rb3 09:26 Follow up: Response: No adverse reaction aa5 Outcome: 09:12 Discharge ordered by . rn 09:24 Discharged to home ambulatory, with family. aa5 09:24 Condition: stable 09:24 Discharge instructions given to patient, Instructed on discharge instructions, follow up and referral plans. medication usage, Demonstrated understanding of instructions, follow-up care, medications, Prescriptions given X 2. 09:26 Patient left the ED. aa5 Signatures: Dispatcher [employer] EDImer Vasquez MD MD rn Calderon, Audri RN RN aa5 Charlee Shafer Lynsay, RN RN ll1 Chinyere Mcginnis RN RN rb3
[2020-07-20 09:35] VITALS: TEMP 98.1
[2020-07-20 09:36] VITALS: BP 116/78; O2SAT 96
[2020-07-20] MEDS ORDERED: PANTOPRAZOLE 40 MG INJ ONE (09:39)
== END 2020-07-20 09:26 | disposition home or self-care (01) ==
LOC: ER 07:35
DX: K29.70 Gastritis, unspecified, without bleeding (principal); K20.90 Esophagitis, unspecified without bleeding; G89.29 Other chronic pain; F17.210 Nicotine dependence, cigarettes, uncomplicated; Z88.5 Allergy status to narcotic agent; Z88.6 Allergy status to analgesic agent
CPT/HCPCS: 85025; 80048; 36415; 80076; 83690; 76705; C9113; J2405; 96374; 96375; 99284

== ENCOUNTER 2021-02-04 12:23 | Emergency (ER) | payer OTHER ==
--- OUTSIDE RECORDS SUMMARY | 2021-02-04 12:29 | XMS REPORT | Continuity of Care Document ---
:1965 Author Organization [facility] t Address [facility] [address] [place] [address] Care Team Providers Name Role Phone Ayesha TAVAREZ Attending Clinician Unavailable Ayesha Tavarez MD Attending Clinician Philly RN, L Attending Clinician Unavailable Octavia CHAMPAGNE Attending Clinician Unavailable Doctor Unassigned, Name Attending Clinician Unavailable Kiran Alonso DO Attending Clinician Visit, Nurse Attending Clinician Unavailable Pc, Echo Room 1 - Attending Clinician Unavailable Van SAHU Attending Clinician Pob, Lab Main Attending Clinician Unavailable VAN Attending Clinician Unavailable CATALINA Attending Clinician Unavailable Catalina SAHU Attending Clinician Chava LARSEN Attending Clinician Unavailable CATALINA Admitting Clinician Unavailable Chava LARSEN Admitting Clinician Unavailable Payers Payer Name Policy Type Policy Number Effective Date Expiration Date [facility] [id number] 2013 MEDICAID 00:00:00 Problems Condition Condition Condition Status Onset Resolution Last Treating Co mments Source Name Details Category Date Date Treatment Clinician Date Chronic Chronic Disease Active Univers pain pain 2-19 ity of disorder disorder 00:00: [address] Branch Malfunctio Malfunctio Disease Active B kait mahoney of 2-14 College intratheca intratheca 00:00: of l infusion l infusion 00 Me dicin pump pump e Asthma Asthma Disease Active 2015-02 Univers exacerbati exacerbati 2-19 [place] [facility] Finger Finger Disease Active 2011-02 Univers infection infection 2-17 ity of 00:00: Medical Branch Carpal Carpal Disease Active 2011-02 Univers tunnel tunnel 2-17 ity of syndrome syndrome 00:00: Medical Branch Finger Finger Disease Active Univers stiffness stiffness 06-30 ity of 00:00: Medical Branch Edema Edema Disease Active Univers extremitie extremitie 06-30 it y of s s 00:00: Medical Branch Tendon Tendon Disease Active Univers laceration laceration 06-16 it y of 00:00: Medical Branch Complete Complete Diagnosis Active [facility] of [facility] - right right Memoria rotator rotator l cuff cuff Outpati ent Clinics Pain, Pain, Diagnosis Active [facility] joint, joint, [facility] - shoulder, shoulder, Kalen scott right right l Outpati ent Clinics Bicipital Bicipital Diagnosis Active [facility] tendinitis tendinitis Faina kes - of right of right Memori a shoulder shoulder l Outpati ent Clinics Superior Superior Diagnosis Active [facility] glenoid glenoid [facility] - labrum labrum Memoria lesion of lesion of l right right Outpati shoulder, shoulder, ent initial initial Clinics encounter encounter Allergies, Adverse Reactions, Alerts Allergy Allergy Status Severity Reaction(s) Onset Inactive Treating Comm ents Source Name Type Date Date Clinician Hydromor Propensi Active Itching Unive rs phone ty to 05-01 ity of adverse 00:00: [place] reaction Medical s Branch HYDROMOR DRUG Active ITCHING Univers PHONE INGREDI 05-01 ity of 00:00: Medical Branch Cycloben Propensi Active Rash Raised Univer s zaprine ty to 06-16 rash ity of adverse 00:00: [place] reaction Medical s Branch CYCLOBEN DRUG Active Rash Univers ZAPRINE INGREDI 06-16 ity of HCL 00:00: Medical Branch MORPHINE DRUG Active High ITCHING Univers INGREDI 06-16 ity of 00:00: Medical Branch CYCLOBEN DRUG Active Low Rash Univers ZAPRINE INGREDI 06-16 ity of 00:00: 00 Medical Branch Cycloben Propensi Active Rash Univer s zaprine ty to 06-16 ity of Hcl adverse 00:00: [place] reaction Medical s Branch Morphine Propensi Active Itching Patient Univ ers ty to 06-16 [facility] ity of adverse 00:00: she has [place] reaction 00 severe Medical s itching Branch and triggers off asthma Exacerbat es asthmaPat ient states she has severe itching and triggers off asthmaSev er itching and breathing Exacerbat es asthma Cycloben Propensi Active Rash [facility] zaprine ty to 06-16 [place] adverse 00:00: of reaction 00 Medicin s to e drug Morphine Propensi Active Itching Exacerbat Ba ylor ty to 06-16 [facility] adverse 00:00: asthmaPat of reaction 00 ient Medicin s to states e drug she has severe itching and triggers off asthma cycloben Adverse Active Info Not [facility] zaprine Reaction Available [facility] BLACK Allergy Active [facility] PEPPER [facility] MORPHINE Adverse Active Info Not [facility] Reaction Available [facility] CYCLOBEN Allergy Active [facility] ZAPRINE [facility] MORPHINE Allergy Active [facility] Social History Social Habit Start Date Stop Date Quantity Comments Source Sex Assigned At [facility] of Medicine History of tobacco Cigarette Smoker University of use [facility] Alcohol Comment occasional Universit y of [facility] [place] [facility] Exposure to Not sure [facility] SARS-CoV-2 (event) [facility] [place] [facility] Tobacco use and 2020-08-05 2020-08-05 Never used Universit y of exposure 00:00:00 00:00:00 [facility] [place] [facility] Cigarettes smoked 2019-03-20 2019-03-20 [facility] of current (pack per 00:00:00 00:00:00 Medicin e day) - Reported Cigarette 2019-03-20 2019-03-20 [facility] of pack-years 00:00:00 00:00:00 Medicine Alcohol intake 2019-03-20 2019-03-20 Current drinker [facility] of 00:00:00 00:00:00 of alcohol Medicine (finding) Tobacco Comment 2016-01-27 2016-01-27 0.5 PPD Universit y of 00:00:00 00:00:00 [facility] [place] [facility] Smoking Status Start Date Stop Date Source Current every day smoker 2019-03-20 00:00:00 [facility] Medications Ordered Filled Start Stop Current Ordering Indication Dosage Frequency Signature Comments Components Source Medication Medication Date Date Medication? Clinician (SIG) Name Name buPROPion 2020- No [id number] 150mg Take 150 Univers XL 150 mg 08-05-28 mg by ity of 24 hr 15:53: 00:00 mouth [place] tablet 38 :00 daily. Medical Branch naltrexone 2020- No [id number] 25mg Take 25 mg Univers 50 mg 08-05-28 by mouth ity of tablet 15:53: 00:00 daily. [place] 38 :00 [facility] oxyCODONE-a 2020- No 1{tbl} Take 1 U nivers cetaminophe 08-05 tablet by it y of n 10-325 mg 15:53: 00:00 [place] per [place] 38 :00 every 4 Medica l (four) Branch hours as needed for Pain. buPROPion No [id number] 150mg Take 150 Univers XL 150 mg 08-05-28 mg by ity of 24 hr 15:53: 00:00 mouth [place] tablet 38 :00 daily. Medical Branch naltrexone 2020- No [id number] 25mg Take 25 mg Univers 50 mg 08-05 by mouth ity of tablet 15:53: 00:00 daily. [place] 38 :00 [facility] oxyCODONE-a 2020- No 1{tbl} Take 1 U nivers cetaminophe 08-05 tablet by it y of n 10-325 mg 15:53: 00:00 [place] per tablet 38 :00 every 4 Medica l (four) Branch hours as needed for Pain. diltiazem 2020- No [id number] 120mg Take 1 Univers (CARTIA XT) 08-05 capsule by i ty of 120 mg 24 00:00: 04:59 mouth [place] hr capsule 00 :00 daily for Medi reji 90 days. Branch diltiazem 2020- No [id number] 120mg Take 1 Univers (CARTIA XT) 08-05 capsule by i ty of 120 mg 24 00:00: 04:59 mouth [place] hr capsule 00 :00 daily for Medi reji 90 days. Branch pantoprazol Yes 40mg Take 40 mg Univers e 40 mg EC 6-23 by mouth ity o f tablet 00:00: daily. Medical Branch pantoprazol Yes 40mg Take 40 mg Univers e 40 mg EC 6-23 by mouth ity o f tablet 00:00: daily. Medical Branch liothyronin Yes 5ug Take 5 mcg Univers e 5 mcg 6-18 by mouth ity of tablet 00:00: every [place] morning. Medical Branch liothyronin Yes 5ug Take 5 mcg Univers e 5 mcg 6-18 by mouth ity of tablet 00:00: every [place] morning. Medical Branch CARTIA XT 2020- No 120mg Take 120 Un [place] 120 mg 24 6-18 06-28 mg by ity of hr capsule 00:00: 00:00 mouth [place] 00 :00 daily. Medical Branch CARTIA XT 2020- No 120mg Take 120 Un [place] 120 mg 24 6-18 06-28 mg by ity of hr capsule 00:00: 00:00 mouth [place] 00 :00 daily. Medical Branch LIALDA 1.2 Yes 2.4g Take 2.4 g U nivers gram EC 6-12 by mouth ity of tablet 00:00: daily. Medical Branch LIALDA 1.2 Yes 2.4g Take 2.4 g U nivers gram EC 6-12 by mouth ity of tablet 00:00: daily. Medical Branch levothyroxi Yes 50ug Take 50 Uni vers ne 50 mcg 6-11 mcg by ity of tablet 00:00: mouth [place] [address] every Medical morning. Branch levothyroxi Yes 50ug Take 50 Uni vers ne 50 mcg 6-11 mcg by ity of tablet 00:00: mouth [place] [address] every Medical morning. Branch famotidine Yes 40mg Take 40 mg U nivers 40 mg 6-10 by mouth ity of tablet 00:00: once now. Medical Branch famotidine Yes 40mg Take 40 mg U nivers 40 mg 6-10 by mouth ity of tablet 00:00: once now. Medical Branch progesteron Yes 200mg Take 200 U nivers e 200 mg 5-11 mg by ity of capsule 00:00: [place] 00 now. [facility] progesteron 0 Yes 200mg Take 200 U nivers e 200 mg 5-11 mg by ity of capsule 00:00: mouth [place] 00 now. [facility] naltrexone 2020-0 Yes [id number] 25mg Take 25 mg Univers 50 mg 3-23 by mouth ity of tablet 14:10: daily. [address] naltrexone 2020-0 Yes [id number] 25mg Take 25 mg Univers 50 mg 3-23 by mouth ity of tablet 14:10: daily. [address] naltrexone 0 Yes [id number] 25mg Take 25 mg Univers 50 mg 3-23 by mouth ity of tablet 14:10: daily. [address] naltrexone 0 Yes [id number] 25mg Take 25 mg Univers 50 mg 3-23 by mouth ity of tablet 14:10: daily. [address] naltrexone 0 Yes [id number] 25mg Take 25 mg Univers 50 mg 3-23 by mouth ity of tablet 14:10: daily. [address] naltrexone 0 Yes [id number] 25mg Take 25 mg Univers 50 mg 3-23 by mouth ity of tablet 14:10: daily. [address] diltiazem 2020- No [id number] 120mg Take 1 Univers (CARDIZEM 3-23 -23 capsule by ity of CD) 120 mg 00:00: 04:59 mouth [place] 24 hr 00 :00 daily for Medical capsule 30 days. [place] diltiazem 2020- No [id number] 120mg Take 1 Univers (CARDIZEM 3-23 -23 capsule by ity of CD) 120 mg 00:00: 04:59 mouth [place] 24 hr 00 :00 daily for Medical capsule 30 days. [place] diltiazem 2020- No [id number] 120mg Take 1 Univers (CARDIZEM 3-23 -23 capsule by ity of CD) 120 mg 00:00: 04:59 mouth [place] 24 hr 00 :00 daily for Medical capsule 30 days. [place] diltiazem 2020- No [id number] 120mg Take 1 Univers (CARDIZEM 3-23 -23 capsule by ity of CD) 120 mg 00:00: 04:59 mouth [place] 24 hr 00 :00 daily for Medical capsule 30 days. Branch diltiazem Yes 120mg Take 1 Unive rs (CARDIZEM 2-25 capsule by ity of CD) 120 mg 00:00: mouth [place] 24 [place] 00 (two) Medical capsule times Branch daily. diltiazem Yes 120mg Take 1 Unive rs (CARDIZEM 2-25 capsule by ity of CD) 120 mg 00:00: mouth [place] 24 [place] 00 (two) Medical capsule times Branch daily. diltiazem 2020- No 120mg Take 1 Univ ers (CARDIZEM 2-25 03-23 capsule by ity of CD) 120 mg 00:00: 00:00 mouth 2 [place] 24 hr 00 :00 (two) Medical capsule times Branch daily. diltiazem 2020- No 120mg Take 1 Univ ers (CARDIZEM 2-25 03-23 capsule by ity of ) 120 mg 00:00: 00:00 mouth 2 [place] 24 hr 00 :00 (two) Medical capsule times Branch daily. albuterol-i 2019-02 Yes 1{puff} Inhale 1 Univers pratropium 1-17 Puff 4 ity of (COMBIVENT 17:40: [facility] [place] RESPIMAT) 53 times Medical 20-100 daily. Branch mcg/actuati on inhaler albuterol-i 2019-02 Yes 1{puff} Inhale 1 Univers pratropium 1-17 Puff 4 ity of (COMBIVENT 17:40: ([facility] [place] RESPIMAT) 53 times Medical 20-100 daily. Branch mcg/actuati on inhaler albuterol-i 2019-02 Yes 1{puff} Inhale 1 Univers pratropium 1-17 Puff 4 ity of (COMBIVENT 17:40: (four) [place] RESPIMAT) 53 times Medical 20-100 daily. Branch mcg/actuati on inhaler albuterol-i 2019-02 Yes 1{puff} Inhale 1 Univers pratropium 1-17 Puff 4 ity of (COMBIVENT 17:40: (four) [place] RESPIMAT) 53 times Medical 20-100 daily. Branch mcg/actuati on inhaler albuterol-i 2019-02 Yes 1{puff} Inhale 1 Univers pratropium 1-17 Puff 4 ity of (COMBIVENT 17:40: ([facility] [place] RESPIMAT) 53 times Medical 20-100 daily. Branch mcg/actuati on inhaler albuterol-i 2019-02 Yes 1{puff} Inhale 1 Univers pratropium 1-17 Puff 4 ity of (COMBIVENT 17:40: ([facility] [place] RESPIMAT) 53 times Medical 20-100 daily. Branch mcg/actuati on inhaler albuterol-i 2019-02 Yes 1{puff} Inhale 1 Univers pratropium 1-17 Puff 4 ity of (COMBIVENT 17:40: ([facility] [place] RESPIMAT) 53 times Medical 20-100 daily. Branch mcg/actuati on inhaler albuterol-i 2019-02 Yes 1{puff} Inhale 1 Univers pratropium 1-17 Puff 4 ity of (COMBIVENT 17:40: ([facility] [place] RESPIMAT) 53 times Medical 20-100 daily. Branch mcg/actuati on inhaler albuterol-i 2019-02 Yes 1{puff} Inhale 1 Univers pratropium 1-17 Puff 4 ity of (COMBIVENT 17:40: ([facility] [place] RESPIMAT) 53 times Medical 20-100 daily. Branch mcg/actuati on inhaler albuterol-i 2019-02 Yes 1{puff} Inhale 1 Univers pratropium 1-17 Puff 4 ity of (COMBIVENT 17:40: ([facility] [place] RESPIMAT) 53 times Medical 20-100 daily. Branch mcg/actuati on inhaler albuterol-i 2019-02 Yes 1{puff} Inhale 1 Univers pratropium 1-17 Puff 4 ity of (COMBIVENT 17:40: ([facility] [place] RESPIMAT) 53 times Medical 20-100 daily. Branch mcg/actuati on inhaler albuterol-i 2019-02 Yes 1{puff} Inhale 1 Univers pratropium 1-17 Puff 4 ity of (COMBIVENT 17:40: ([facility] [place] RESPIMAT) 53 times Medical 20-100 daily. Branch mcg/actuati on inhaler albuterol-i 2019-02 Yes 1{puff} Inhale 1 Univers pratropium 1-17 Puff 4 ity of (COMBIVENT 17:40: (four) [place] RESPIMAT) 53 times Medical 20-100 daily. Branch mcg/actuati on inhaler albuterol-i 2019-02 Yes 1{puff} Inhale 1 Univers pratropium 1-17 Puff 4 ity of (COMBIVENT 17:40: (four) [place] RESPIMAT) 53 times Medical 20-100 daily. Branch mcg/actuati on inhaler albuterol-i 2019-02 Yes 1{puff} Inhale 1 Univers pratropium 1-17 Puff 4 ity of (COMBIVENT 17:40: (four) [place] RESPIMAT) 53 times Medical 20-100 daily. Branch mcg/actuati on inhaler albuterol-i 2019-02 Yes 1{puff} Inhale 1 Univers pratropium 1-17 Puff 4 ity of (COMBIVENT 17:40: (four) [place] RESPIMAT) 53 times Medical 20-100 daily. Branch mcg/actuati on inhaler oxyCODONE-a 2019-02 Yes 1{tbl} Take 1 [place] cetaminophe 1-17 tablet by ity of n 10-325 mg 17:40: mouth [place] per tablet 50 every 4 Medica l (four) Branch hours as needed for Pain. oxyCODONE-a 2019-02 Yes 1{tbl} Take 1 Un [place] cetaminophe 1-17 tablet by ity of n 10-325 mg 17:40: mouth [place] per tablet 50 every 4 Medica l (four) Branch hours as needed for Pain. oxyCODONE-a 2019-02 Yes 1{tbl} Take 1 [place] cetaminophe 1-17 tablet by ity of n 10-325 mg 17:40: mouth [place] per tablet 50 every 4 Medica l (four) Branch hours as needed for Pain. oxyCODONE-a 2019-02 Yes 1{tbl} Take 1 Un [place] cetaminophe 1-17 tablet by ity of n 10-325 mg 17:40: mouth [place] per tablet 50 every 4 Medica l (four) Branch hours as needed for Pain. oxyCODONE-a 2019-02 Yes 1{tbl} Take 1 [place] cetaminophe 1-17 tablet by ity of n 10-325 mg 17:40: mouth [place] per tablet 50 every 4 Medica l (four) Branch hours as needed for Pain. oxyCODONE-a 2019-02 Yes 1{tbl} Take 1 Un [place] cetaminophe 1-17 tablet by ity of n 10-325 mg 17:40: mouth [place] per tablet 50 every 4 Medica l (four) Branch hours as needed for Pain. oxyCODONE-a 2019-02 Yes 1{tbl} Take 1 [place] cetaminophe 1-17 tablet by ity of n 10-325 mg 17:40: mouth [place] per tablet 50 every 4 Medica l (four) Branch hours as needed for Pain. oxyCODONE-a 2019-02 Yes 1{tbl} Take 1 Un [place] cetaminophe 1-17 tablet by ity of n 10-325 mg 17:40: mouth [place] per tablet 50 every 4 Medica l (four) Branch hours as needed for Pain. oxyCODONE-a 2019-02 Yes 1{tbl} Take 1 [place] cetaminophe 1-17 tablet by ity of n 10-325 mg 17:40: mouth [place] per tablet 50 every 4 Medica l (four) Branch hours as needed for Pain. oxyCODONE-a 2019-02 Yes 1{tbl} Take 1 Un [place] cetaminophe 1-17 tablet by ity of n 10-325 mg 17:40: mouth [place] per tablet 50 every 4 Medica l (four) Branch hours as needed for Pain. oxyCODONE-a 2019-02 Yes 1{tbl} Take 1 Un [place] cetaminophe 1-17 tablet by ity of n 10-325 mg 17:40: mouth [place] per tablet 50 every 4 Medica l (four) Branch hours as needed for Pain. oxyCODONE-a 2019-02 Yes 1{tbl} Take 1 Un [place] cetaminophe 1-17 tablet by ity of n 10-325 mg 17:40: mouth [place] per tablet 50 every 4 Medica l (four) Branch hours as needed for Pain. oxyCODONE-a 2019-02 Yes 1{tbl} Take 1 [place] cetaminophe 1-17 tablet by ity of n 10-325 mg 17:40: mouth [place] per tablet 50 every 4 Medica l (four) Branch hours as needed for Pain. oxyCODONE-a 2019-02 Yes 1{tbl} Take 1 [place] cetaminophe 1-17 tablet by ity of n 10-325 mg 17:40: mouth [place] per tablet 50 every 4 Medica l (four) Branch hours as needed for Pain. OXYCODONE 2019-02- No 15mg Take 15 mg U nivers HCL 1-17 11-17 by mouth ity of (OXYCODONE 17:39: 00:00 as needed [place] ORAL) 36 :00 for Pain Medical (scale Branch 4-6). OXYCODONE 2019-02- No 15mg Take 15 mg U nivers HCL 1-17 11-17 by mouth ity of (OXYCODONE 17:39: 00:00 as needed [place] ORAL) 36 :00 for Pain Medical (scale Branch 4-6). OXYCODONE 2019-02- No 15mg Take 15 mg U nivers HCL 1-17 11-17 by mouth ity of (OXYCODONE 17:39: 00:00 as needed [place] ORAL) 36 :00 for Pain Medical (scale Branch 4-6). buPROPion 2019-02 Yes [id number] 150mg Take 150 Univers XL 150 mg 1-17 mg by ity of 24 hr 17:36: mouth [place] tablet 47 daily. Medical Branch naltrexone 2019-02 Yes [id number] 25mg Take 25 mg Univers 50 mg 1-17 by mouth ity of tablet 17:36: daily. [place] [address] Medical Branch buPROPion 2019-02 Yes [id number] 150mg Take 150 Univers XL 150 mg 1-17 mg by ity of 24 hr 17:36: mouth [place] tablet 47 daily. Medical Branch naltrexone 2019-02 Yes [id number] 25mg Take 25 mg Univers 50 mg 1-17 by mouth ity of tablet 17:36: daily. [address] Branch buPROPion 2019-02 Yes [id number] 150mg Take 150 Univers XL 150 mg 1-17 mg by ity of 24 hr 17:36: mouth [place] tablet 47 daily. Medical Branch naltrexone 2019-02 Yes [id number] 25mg Take 25 mg Univers 50 mg 1-17 by mouth ity of tablet 17:36: daily. [address] buPROPion 2019- Yes [id number] 150mg Take 150 Univers XL 150 mg 1-17 mg by ity of 24 hr 17:36: mouth [place] tablet 47 daily. [facility] naltrexone 2019- Yes [id number] 25mg Take 25 mg Univers 50 mg 1-17 by mouth ity of tablet 17:36: daily. [address] buPROPion 2019- Yes [id number] 150mg Take 150 Univers XL 150 mg 1-17 mg by ity of 24 hr 17:36: mouth [place] tablet 47 daily. [facility] naltrexone 2019-02 Yes [id number] 25mg Take 25 mg Univers 50 mg 1-17 by mouth ity of tablet 17:36: daily. [address] buPROPion 2019- Yes [id number] 150mg Take 150 Univers XL 150 mg 1-17 mg by ity of 24 hr 17:36: mouth [place] tablet 47 daily. [facility] naltrexone 2019- Yes [id number] 25mg Take 25 mg Univers 50 mg 1-17 by mouth ity of tablet 17:36: daily. [address] buPROPion 2019-02 Yes [id number] 150mg Take 150 Univers XL 150 mg 1-17 mg by ity of 24 hr 17:36: mouth [place] tablet 47 daily. [facility] naltrexone 2019- Yes [id number] 25mg Take 25 mg Univers 50 mg 1-17 by mouth ity of tablet 17:36: daily. [address] buPROPion 2019- Yes [id number] 150mg Take 150 Univers XL 150 mg 1-17 mg by ity of 24 hr 17:36: mouth [place] tablet 47 daily. [facility] naltrexone 2019- Yes [id number] 25mg Take 25 mg Univers 50 mg 1-17 by mouth ity of tablet 17:36: daily. [address] buPROPion 2019- Yes [id number] 150mg Take 150 Univers XL 150 mg 1-17 mg by ity of 24 hr 17:36: mouth [place] tablet 47 daily. [facility] buPROPion 2019- Yes [id number] 150mg Take 150 Univers XL 150 mg 1-17 mg by ity of 24 hr 17:36: mouth [place] tablet 47 daily. [facility] buPROPion 2019-02 Yes [id number] 150mg Take 150 Univers XL 150 mg 1-17 mg by ity of 24 hr 17:36: mouth [place] tablet 47 daily. Medical Branch buPROPion 2019-02 Yes [id number] 150mg Take 150 Univers XL 150 mg 1-17 mg by ity of 24 hr 17:36: mouth [place] tablet 47 daily. Medical Branch buPROPion 2019-02 Yes [id number] 150mg Take 150 Univers XL 150 mg 1-17 mg by ity of 24 hr 17:36: mouth [place] tablet 47 daily. [facility] Branch buPROPion 2019-02 Yes [id number] 150mg Take 150 Univers XL 150 mg 1-17 mg by ity of 24 hr 17:36: mouth [place] tablet 47 daily. [facility] Branch FENTANYL, 2019-02- No Indication U nivers BULK, MISC 02-24 s: in pain it y of 17:32: 00:00 pump [place] 32 :00 Medical Branch FENTANYL, 2019-02- No Indication U nivers BULK, MISC 02-24 s: in pain it y of 17:32: 00:00 pump [place] 32 :00 Medical Branch FENTANYL, 2019-02- No Indication U nivers BULK, MISC 02-24 s: in pain it y of 17:32: 00:00 pump [place] 32 :00 [facility] gabapentin 2019-02- No 300mg Take 300 U nivers (NEURONTIN) 1-17 11-17 mg by ity of 300 mg 17:32: 00:00 mouth at [place] capsule 29 :00 bedtime. Medical Branch gabapentin 2019-02- No 300mg Take 300 U nivers (NEURONTIN) 1-17 11-17 mg by ity of 300 mg 17:32: 00:00 mouth at [place] capsule 29 :00 bedtime. Medical Branch gabapentin 2019-02- No 300mg Take 300 U nivers (NEURONTIN) 1-17 11-17 mg by ity of 300 mg 17:32: 00:00 mouth at [place] capsule 29 :00 bedtime. [facility] Branch HYDROMORPHO 2019-02- No Unive rs NE HCL -17 -17 ity of (DILAUDID 17:32: 00:00 [place] MISC) 22 :00 Medical Branch HYDROMORPHO 2019-02- No Unive rs NE HCL 02-24 ity of (DILAUDID 17:32: 00:00 [facility]) 22 :00 Medical Branch HYDROMORPHO 2019-02- No Unive rs NE HCL 02-24 ity of (DILAUDID 17:32: 00:00 [facility]) 22 :00 Medical Branch zolpidem 2019-02- No 12.5mg Take 12.5 U nivers (AMBIEN CR) - 11-17 mg by ity of 12.5 mg CR 17:32: 00:00 [place] tablet 13 :00 bedtime as Medical needed. Branch zolpidem 2019-02 No 12.5mg Take 12.5 U nivers (AMBIEN CR) - 11-17 mg by ity of 12.5 mg CR 17:32: 00:00 [place] tablet 13 :00 bedtime as Medical needed. Branch zolpidem 2019-02 No 12.5mg Take 12.5 U nivers (AMBIEN CR) 02-24 11-17 mg by ity of 12.5 mg CR 17:32: 00:00 [place] tablet 13 :00 bedtime as Medical needed. Branch tiZANidine 2019-02- No 4mg Take 4 mg U nivers (ZANAFLEX) 02-24 by mouth ity of 4 mg tablet 17:32: 00:00 every 12 [place] 09 :00 (twelve) Medical hours as Branch needed. tiZANidine 2019-02- No 4mg Take 4 mg U nivers (ZANAFLEX) 02-24 by mouth ity of 4 mg tablet 17:32: 00:00 every 12 [place] 09 :00 (twelve) Medical hours as Branch needed. tiZANidine 2019-02- No 4mg Take 4 mg U nivers (ZANAFLEX) 02-24 by mouth ity of 4 mg tablet 17:32: 00:00 every 12 [place] 09 :00 (twelve) Medical hours as Branch needed. sennosides- 2019-02- No 1{tbl} Take 1 Tab Univers docusate 02-24 by mouth ity of sodium 17:32: 00:00 daily. [place] (DOC-Q-LAX) 03 :00 Medical 8.6-50 mg Branch tablet sennosides- 2019-02- No 1{tbl} Take 1 Tab Univers docusate -25 12- by mouth ity of sodium 17:32: 00:00 daily. [place] (DOC-Q-LAX) 03 :00 Medical 8.6-50 mg Branch tablet sennosides- 2019-02- No 1{tbl} Take 1 Tab Univers docusate -25 12- by mouth ity of sodium 17:32: 00:00 daily. [place] (DOC-Q-LAX) 03 :00 Medical 8.6-50 mg Branch tablet oxymorphone 2019-02- No 10mg Take 10 mg Univers (OPANA ER) 02-24- by mouth ity of 20 mg 12 hr 17:31: 00:00 daily. [place] tablet 57 :00 Medical Branch oxymorphone 2019-02 No 10mg Take 10 mg Univers (OPANA ER) 02-24 by mouth ity of 20 mg 12 hr 17:31: 00:00 daily. [place] tablet 57 :00 Medical Branch oxymorphone 2019-02- No 10mg Take 10 mg Univers (OPANA ER) 02-24- by mouth ity of 20 mg 12 hr 17:31: 00:00 daily. [place] tablet 57 :00 Medical Branch naproxen 2019-02- No 500mg Take 500 Uni vers (NAPROSYN) 1-17 11-17 mg by ity of 500 mg 17:31: 00:00 mouth 2 [place] tablet 50 :00 (two) Medical times Branch daily with meals. naproxen 2019-02- No 500mg Take 500 Uni vers (NAPROSYN) 1-17 11-17 mg by ity of 500 mg 17:31: 00:00 mouth 2 [place] tablet 50 :00 (two) Medical times Branch daily with meals. naproxen 2019-02- No 500mg Take 500 Uni vers (NAPROSYN) 1-17 11-17 mg by ity of 500 mg 17:31: 00:00 mouth 2 [place] tablet 50 :00 (two) Medical times Branch daily with meals. ALBUTEROL 2019-02- No Inhale. Univ ers SULFATE 1-17 11-17 ity of (PROVENTIL 17:31: 00:00 [place] INHALE) 37 :00 Medical Branch ALBUTEROL 2019-02- No Inhale. [facility] ers SULFATE 02-24 ity of (PROVENTIL 17:31: 00:00 [place] INHALE) 37 :00 Medical Branch ALBUTEROL 2019-02- No Inhale. [facility] ers SULFATE 02-24 ity of (PROVENTIL 17:31: 00:00 [place] INHALE) 37 :00 Medical Branch diltiazem 2019-02 No [id number] 120mg Take 1 [facility] (CARDIZEM 1-17 12-18 capsule by ity of CD) 120 mg 00:00: 05:59 mouth [place] 24 hr 00 :00 daily for Medical capsule 30 days. [place] diltiazem 2019-02 No [id number] 120mg Take 1 [facility] (CARDIZEM 1-17 12-18 capsule by ity of CD) 120 mg 00:00: 05:59 mouth [place] 24 hr 00 :00 daily for Medical capsule 30 days. [place] diltiazem 2019-02 No [id number] 120mg Take 1 [facility] (CARDIZEM 1-17 12-18 capsule by ity of CD) 120 mg 00:00: 05:59 mouth [place] 24 hr 00 :00 daily for Medical capsule 30 days. [place] diltiazem 2019-02 No [id number] 120mg Take 1 [facility] (CARDIZEM 1-17 12-18 capsule by ity of CD) 120 mg 00:00: 05:59 mouth [place] 24 hr 00 :00 daily for Medical capsule 30 days. [place] diltiazem 2019-02 No [id number] 120mg Take 1 [facility] (CARDIZEM 1-17 12-18 capsule by ity of CD) 120 mg 00:00: 05:59 mouth [place] 24 hr 00 :00 daily for Medical capsule 30 days. Branch NaCl 0.9% 2019-02- No [id number] 250mL [facility] (NS) IV 0-21 10-21 ity of infusion 16:45: 16:48 [place] 250 mL 00 :25 Medical Branch metoprolol 2019-02- No [id number] 5mg [facility] (LOPRESSOR) 0-21 10-21 ity of injection 5 16:45: 16:48 [place] mg 00 :20 Medical Branch sulfur 2019-02- No [id number] 5mL Univer s hexafluorid 0-21 10-21 ity of e microsphr 16:45: 16:00 [place] (LUMASON) 00 :00 Medical injection 5 Branch mL atropine 2019-02- No 1mg [facility] injection 1 0-21 -21 ity of mg 16:45: 16:19 [place] 00 :00 Medical Branch atropine 2019-02- No 1mg 1 mg, IV Univ ers injection 1 0-28 11-21 Push, ity of mg 16:45: 16:19 ONCE, 1 [place] 00 :00 dose, Wed Medical 11/29/19 Branch at 1145, Routine sulfur 2019-02- No [id number] 5mL 5 mL, Slow [facility] hexafluorid 0-21 IV Push, ity of e microsphr 16:45: 16:00 [place]CE, 1 [place] (LUMASON) 00 :00 dose, Wed Medic al injection 5 11/29/19 Bran ch mL at 1145, Routine
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
To keep vein open
DOBUTamine 2019-02- No 471.5ug Uni vers (DOBUTREX) 0-21 10-21 /min ity of 250 mg/250 16:33: 16:48 [place] mL RTU 20 :05 Medical infusion Branch DOBUTamine 2019-02- No 5ug/kg/ 5-40 Uni vers (DOBUTREX) 0-21 10-21 min mcg/kg/min it y of 250 mg/250 16:33: 16:48 ?94.3 kg [place] mL RTU 20 :05 (28.29-226 Medical infusion .32 Branch mL/hr), IV Infusion, TITRATE, MAP Goal > or = 65 mmHg, Starting Wed11/29/19 at 1133
No te and document the precise time that this is3. accomplish ed. Begin the count with the EKG system's DSE applicatio n program. This is time zero.& nbsp; At 2 minutes and 30 seconds after beginning the initial dosing, acquire parasterna l long axis and parasterna l short axis view at papillary level, apical 4 chamber, 2 chamber and apical long axis view, and BP At the 3 minute interval, simultaneo usly obtain a 12 lead EKG, heart rate and 02 saturation and increase the Dobutamine infusion to 10 rng/kg/min . At the 5 minutes and 30 second interval, acquire parasterna l long axis and parasterna l short&nbsp ;axis view at papillary level, apical 4 chamber, 2 chamber and apical long axis view and measure BP. At the 6 minute interval, simultaneo usly obtain a 12 lead EKG, heart rate and 02saturati on an d increase the Dobutamine infusion to 20 kg/min.&nb sp; At the 8 minutes and 30 second interval, acquire parasterna l long axis and parasterna l short&nbsp ;axis view at papillary level, apical 4 chamber, 2 chamber and apical long axis view and measure BP. At the 9 minute interval, simultaneo usly obtain a 12 lead EKG, heart rate and 02saturati on an d increase the Dobutamine infusion to 30 kg/min. (see Adjunctive Therapy)&n bsp; At the 11 minutes and 30 second interval, acquire parasterna l long axis and parasterna l short&nbsp ;axis view at papillary level, apical 4 chamber, 2 chamber and apical long axis view and m easure BP.&nb sp; At the 12 minute interval, simultaneo usly obtain a 12 lead EKG, heart rate and 02 saturation and increase the Dobutamine infusion to 40 kg/min. (see Adjunctive Therapy&nb sp; At the 14 minutes and 30 second interval, acquire parasterna l long axis and parasterna l short&nbsp ;axis view at papillary level, apical 4 chamber, 2 chamber and apical long axis view and m easure BP. At the 15 minute interval, simultaneo usly obtain a 12 lead EKG, heart rate and 02 saturation and terminate the Dobutamine infusion. (see Adjunctive Therapy)<b r> DOBUTamine 2019-02 2020- No [id number] 471.5ug [facility] (DOBUTREX) 0-21 10-21 /min ity of 500 mg in 15:32: 16:48 [place] 250 mL 50 :12 Medical (Fixed Branch Dose) D5W infusion RTU buPROPion 2020-0 Yes [id number] 150mg Take 150 [facility] XL 150 mg 9-29 mg by ity of 24 hr 15:31: mouth [place] tablet 08 daily. Medical Branch naltrexone 2020-0 Yes [id number] 25mg Take 25 mg [facility] 50 mg 9-29 by mouth ity of tablet 15:31: daily. [place] [address] Medical Branch buPROPion 2020-0 Yes [id number] 150mg Take 150 [facility] XL 150 mg 9-29 mg by ity of 24 hr 15:31: mouth [place] tablet 08 daily. Medical Branch naltrexone 2020-0 Yes [id number] 25mg Take 25 mg [facility] 50 mg 9-29 by mouth ity of tablet 15:31: daily. [place] [address] Medical Branch buPROPion 2020-0 Yes [id number] 150mg Take 150 [facility] XL 150 mg 9-29 mg by ity of 24 hr 15:31: mouth [place] tablet 08 daily. Medical Branch naltrexone 2020-0 Yes [id number] 25mg Take 25 mg [facility] 50 mg 9-29 by mouth ity of tablet 15:31: daily. [place] [address] Medical Branch buPROPion 2020-0 Yes [id number] 150mg Take 150 [facility] XL 150 mg 9-29 mg by ity of 24 hr 15:31: mouth [place] tablet 08 daily. Medical Branch naltrexone 2020-0 Yes [id number] 25mg Take 25 mg [facility] 50 mg 9-29 by mouth ity of tablet 15:31: daily. [place] [address] Medical Branch buPROPion 2020-0 Yes [id number] 150mg Take 150 [facility] XL 150 mg 9-29 mg by ity of 24 hr 15:31: mouth [place] tablet 08 daily. Medical Branch naltrexone 2020-0 Yes [id number] 25mg Take 25 mg [facility] 50 mg 9-29 by mouth ity of tablet 15:31: daily. [place] [address] Medical Branch buPROPion 2020-0 Yes [id number] 150mg Take 150 [facility] XL 150 mg 9-29 mg by ity of 24 hr 15:31: mouth [place] tablet 08 daily. Medical Branch naltrexone 2020-0 Yes [id number] 25mg Take 25 mg [facility] 50 mg 9-29 by mouth ity of tablet 15:31: daily. [place] [address] Medical Branch buPROPion 2020-0 Yes [id number] 150mg Take 150 [facility] XL 150 mg 9-29 mg by ity of 24 hr 15:31: mouth [place] tablet 08 daily. Medical Branch naltrexone 2020-0 Yes [id number] 25mg Take 25 mg [facility] 50 mg 9-29 by mouth ity of tablet 15:31: daily. [place] [address] Medical Branch buPROPion 2020-0 Yes [id number] 150mg Take 150 [facility] XL 150 mg 9-29 mg by ity of 24 hr 15:31: mouth [place] tablet 08 daily. Medical Branch naltrexone 2020-0 Yes [id number] 25mg Take 25 mg [facility] 50 mg 9-29 by mouth ity of tablet 15:31: daily. [place] [address] Medical Branch buPROPion 2020-0 Yes [id number] 150mg Take 150 [facility] XL 150 mg 9-29 mg by ity of 24 hr 15:31: mouth [place] tablet 08 daily. Medical Branch naltrexone 2020-0 Yes [id number] 25mg Take 25 mg [facility] 50 mg 9-29 by mouth ity of tablet 15:31: daily. [place] [address] Medical Branch buPROPion 2020-0 Yes [id number] 150mg Take 150 [facility] XL 150 mg 9-29 mg by ity of 24 hr 15:31: mouth [place] tablet 08 daily. Medical Branch naltrexone 2020-0 Yes [id number] 25mg Take 25 mg [facility] 50 mg 9-29 by mouth ity of tablet 15:31: daily. [place] [address] Medical Branch HYDROMORPHO 2020-0 Yes Univer s NE HCL 9-29 ity of (DILAUDID 15:02: [place] MIS) 20 Medical Branch gabapentin 2020-0 Yes 300mg Take 300 [facility] (NEURONTIN) 9-29 mg by ity of 300 mg 15:02: mouth at [place] capsule 20 bedtime. Medical Branch tiZANidine 2020-0 Yes 4mg Take 4 mg [facility] (ZANAFLEX) 9-29 by mouth ity o f 4 mg tablet 15:02: every 12 [place] 20 (twelve) Medical hours as Branch needed. FENTANYL, 2020-0 Yes Indication [facility] BULK, MISC 9- s: in pain ity of 15:02: pump [place] 20 Medical Branch OXYCODONE 2019-0 Yes 15mg Take 15 mg [facility] HCL - by mouth ity of (OXYCODONE 15:02: as needed [place] ORAL) 20 for Pain Medical (scale Branch 4-6). ALBUTEROL 2020-0 Yes Inhale. Unive rs SULFATE - ity of (PROVENTIL 15:02: [place] INHALE) 20 Medical Branch HYDROMORPHO 2020-0 Yes Univer s NE HCL - ity of (DILAUDID 15:02: [place] MISC) 20 Medical Branch gabapentin 2019-0 Yes 300mg Take 300 [facility] (NEURONTIN) 9-29 mg by ity of 300 mg 15:02: mouth at [place] capsule 20 bedtime. Medical Branch tiZANidine 2019-0 Yes 4mg Take 4 mg [facility] (ZANAFLEX) 9- by mouth ity o f 4 mg tablet 15:02: every 12 [place] 20 (twelve) Medical hours as Branch needed. FENTANYL, 2019-0 Yes Indication [facility] BULK, MISC 9- s: in pain ity of 15:02: pump [place] 20 Medical Branch OXYCODONE 2019-0 Yes 15mg Take 15 mg [facility] HCL - by mouth ity of (OXYCODONE 15:02: as needed [place] ORAL) 20 for Pain Medical (scale Branch 4-6). ALBUTEROL 2019-0 Yes Inhale. Unive rs SULFATE - ity of (PROVENTIL 15:02: [place] INHALE) 20 Medical Branch HYDROMORPHO 2020-0 Yes Univer s NE HCL - ity of (DILAUDID 15:02: [place] MISC) 20 Medical Branch gabapentin 2020-0 Yes 300mg Take 300 [facility] (NEURONTIN) 9-29 mg by ity of 300 mg 15:02: mouth at [place] capsule 20 bedtime. Medical Branch tiZANidine 2020-0 Yes 4mg Take 4 mg [facility] (ZANAFLEX) 9-29 by mouth ity o f 4 mg tablet 15:02: every 12 [place] 20 (twelve) Medical hours as Branch needed. FENTANYL, 2019-0 Yes Indication [facility] BULK, MISC 9- s: in pain ity of 15:02: pump [place] 20 Medical Branch OXYCODONE 2019-0 Yes 15mg Take 15 mg [facility] HCL -29 by mouth ity of (OXYCODONE 15:02: as needed [place] ORAL) 20 for Pain Medical (scale Branch 4-6). ALBUTEROL 2019-0 Yes Inhale. Unive rs SULFATE 9- ity of (PROVENTIL 15:02: [place] INHALE) 20 Medical Branch HYDROMORPHO 2019-0 Yes Univer s NE HCL - ity of (DILAUDID 15:02: [place] MISC) 20 Medical Branch gabapentin 0 Yes 300mg Take 300 [facility] (NEURONTIN) 9-29 mg by ity of 300 mg 15:02: mouth at [place] capsule 20 bedtime. Medical Branch tiZANidine 0 Yes 4mg Take 4 mg [facility] (ZANAFLEX) 9- by mouth ity o f 4 mg tablet 15:02: every 12 [place] 20 (twelve) Medical hours as Branch needed. FENTANYL, 0 Yes Indication [facility] BULK, MISC 9-29 s: in pain ity of 15:02: pump [place] 20 Medical Branch OXYCODONE 2019-0 Yes 15mg Take 15 mg [facility] HCL - by mouth ity of (OXYCODONE 15:02: as needed [place] ORAL) 20 for Pain Medical (scale Branch 4-6). ALBUTEROL 2019-0 Yes Inhale. Unive rs SULFATE - ity of (PROVENTIL 15:02: [place] INHALE) 20 Medical Branch HYDROMORPHO 2019-0 Yes Univer s NE HCL - ity of (DILAUDID 15:02: [place] MISC) 20 Medical Branch gabapentin 2019-0 Yes 300mg Take 300 [facility] (NEURONTIN) 9-29 mg by ity of 300 mg 15:02: mouth at [place] capsule 20 bedtime. Medical Branch tiZANidine 2019-0 Yes 4mg Take 4 mg [facility] (ZANAFLEX) 9-29 by mouth ity o f 4 mg tablet 15:02: every 12 [place] 20 (twelve) Medical hours as Branch needed. FENTANYL, 2020-0 Yes Indication [facility] BULK, MISC 9-29 s: in pain ity of 15:02: pump [place] 20 Medical Branch OXYCODONE 2019-0 Yes 15mg Take 15 mg [facility] HCL 9- by mouth ity of (OXYCODONE 15:02: as needed [place] ORAL) 20 for Pain Medical (scale Branch 4-6). ALBUTEROL 2019-0 Yes Inhale. Unive rs SULFATE 9- ity of (PROVENTIL 15:02: [place] INHALE) 20 Medical Branch HYDROMORPHO 2019-0 Yes Univer s NE HCL 9- ity of (DILAUDID 15:02: [place] MISC) 20 Medical Branch gabapentin 0 Yes 300mg Take 300 [facility] (NEURONTIN) 9-29 mg by ity of 300 mg 15:02: mouth at [place] capsule 20 bedtime. Medical Branch tiZANidine Yes 4mg Take 4 mg [facility] (ZANAFLEX) 9- by mouth ity o f 4 mg tablet 15:02: every 12 [place] 20 (twelve) Medical hours as Branch needed. FENTANYL, Yes Indication [facility] BULK, MISC 9-29 s: in pain ity of 15:02: pump [place] 20 Medical Branch OXYCODONE 0 Yes 15mg Take 15 mg [facility] HCL - by mouth ity of (OXYCODONE 15:02: as needed [place] ORAL) 20 for Pain Medical (scale Branch 4-6). ALBUTEROL 2019-0 Yes Inhale. Unive rs SULFATE 9- ity of (PROVENTIL 15:02: [place] INHALE) 20 Medical Branch HYDROMORPHO 2019-0 Yes Univer s NE HCL 9- ity of (DILAUDID 15:02: [place] MISC) 20 Medical Branch gabapentin 0 Yes 300mg Take 300 [facility] (NEURONTIN) 9-29 mg by ity of 300 mg 15:02: mouth at [place] capsule 20 bedtime. Medical Branch tiZANidine 0 Yes 4mg Take 4 mg [facility] (ZANAFLEX) 9-29 by mouth ity o f 4 mg tablet 15:02: every 12 [place] 20 (twelve) Medical hours as Branch needed. FENTANYL, 0 Yes Indication [facility] BULK, MISC 9- s: in pain ity of 15:02: pump [place] 20 Medical Branch OXYCODONE 2019-0 Yes 15mg Take 15 mg [facility] HCL 9-29 by mouth ity of (OXYCODONE 15:02: as needed [place] ORAL) 20 for Pain Medical (scale Branch 4-6). ALBUTEROL 2020-0 Yes Inhale. Unive rs SULFATE 9- ity of (PROVENTIL 15:02: [place] INHALE) 20 Medical Branch HYDROMORPHO 2019-0 Yes Univer s NE HCL 9- ity of (DILAUDID 15:02: [place] MISC) 20 Medical Branch gabapentin 0 Yes 300mg Take 300 [facility] (NEURONTIN) 9-29 mg by ity of 300 mg 15:02: mouth at [place] capsule 20 bedtime. Medical Branch tiZANidine 0 Yes 4mg Take 4 mg [facility] (ZANAFLEX) 9- by mouth ity o f 4 mg tablet 15:02: every 12 [place] 20 (twelve) Medical hours as Branch needed. FENTANYL, 0 Yes Indication [facility] BULK, MISC 9- s: in pain ity of 15:02: pump [place] 20 Medical Branch OXYCODONE 2019-0 Yes 15mg Take 15 mg [facility] HCL - by mouth ity of (OXYCODONE 15:02: as needed [place] ORAL) 20 for Pain Medical (scale Branch 4-6). ALBUTEROL 2019-0 Yes Inhale. Unive rs SULFATE 9- ity of (PROVENTIL 15:02: [place] INHALE) 20 Medical Branch HYDROMORPHO 2019-0 Yes Univer s NE HCL - ity of (DILAUDID 15:02: [place] MISC) 20 Medical Branch gabapentin 0 Yes 300mg Take 300 [facility] (NEURONTIN) 9-29 mg by ity of 300 mg 15:02: mouth at [place] capsule 20 bedtime. Medical Branch tiZANidine 2019-0 Yes 4mg Take 4 mg [facility] (ZANAFLEX) 9-29 by mouth ity o f 4 mg tablet 15:02: every 12 [place] 20 (twelve) Medical hours as Branch needed. FENTANYL, 2019-0 Yes Indication [facility] BULK, MISC 9-29 s: in pain ity of 15:02: pump [place] 20 Medical Branch OXYCODONE 2019-0 Yes 15mg Take 15 mg [facility] HCL 9-29 by mouth ity of (OXYCODONE 15:02: as needed [place] ORAL) 20 for Pain Medical (scale Branch 4-6). ALBUTEROL 2020-0 Yes Inhale. Unive rs SULFATE 9- ity of (PROVENTIL 15:02: [place] INHALE) 20 Medical Branch HYDROMORPHO 2019-0 Yes Univer s NE HCL 9-29 ity of (DILAUDID 15:02: [place] MISC) 20 Medical Branch gabapentin 0 Yes 300mg Take 300 [facility] (NEURONTIN) 9-29 mg by ity of 300 mg 15:02: mouth at [place] capsule 20 bedtime. Medical Branch tiZANidine Yes 4mg Take 4 mg [facility] (ZANAFLEX) 9- by mouth ity o f 4 mg tablet 15:02: every 12 [place] 20 (twelve) Medical hours as Branch needed. FENTANYL, Yes Indication [facility] BULK, MISC 9-29 s: in pain ity of 15:02: pump [place] 20 Medical Branch OXYCODONE 0 Yes 15mg Take 15 mg [facility] HCL 9- by mouth ity of (OXYCODONE 15:02: as needed [place] ORAL) 20 for Pain Medical (scale Branch 4-6). ALBUTEROL 2019-0 Yes Inhale. Unive rs SULFATE 9- ity of (PROVENTIL 15:02: [place] INHALE) 20 Medical Branch HYDROMORPHO 2019-0 Yes Univer s NE HCL 9- ity of (DILAUDID 15:02: [place] MISC) 20 Medical Branch gabapentin 0 Yes 300mg Take 300 [facility] (NEURONTIN) 9-29 mg by ity of 300 mg 15:02: mouth at [place] capsule 20 bedtime. Medical Branch tiZANidine 0 Yes 4mg Take 4 mg [facility] (ZANAFLEX) 9-29 by mouth ity o f 4 mg tablet 15:02: every 12 [place] 20 (twelve) Medical hours as Branch needed. FENTANYL, 0 Yes Indication [facility] BULK, MISC 9-29 s: in pain ity of 15:02: pump [place] 20 Medical Branch OXYCODONE 2019-0 Yes 15mg Take 15 mg [facility] HCL 11-06 by mouth ity of (OXYCODONE 15:02: as needed [place] ORAL) 20 for Pain Medical (scale Branch 4-6). ALBUTEROL 0 Yes Inhale. Unive rs SULFATE 29 ity of (PROVENTIL 15:02: [place] INHALE) 20 Medical Branch traZODone 2019-0 Yes [id number] TK 1 T PO [facility] 100 mg 9-15 QD HS ity of tablet 00:00: [place] [facility] Branch traZODone 2020-0 Yes [id number] TK 1 T PO [facility] 100 mg 9-15 QD HS ity of tablet 00:00: [place] [facility] Branch traZODone 2020-0 Yes [id number] TK 1 T PO [facility] 100 mg 9-15 QD HS ity of tablet 00:00: [place] [facility] Branch traZODone 2020-0 Yes [id number] TK 1 T PO [facility] 100 mg 9-15 QD HS ity of tablet 00:00: [place] [facility] Branch traZODone 2020-0 Yes [id number] TK 1 T PO [facility] 100 mg 9-15 QD HS ity of tablet 00:00: [place] [facility] traZODone 2020-0 Yes [id number] TK 1 T PO [facility] 100 mg 9-15 QD HS ity of tablet 00:00: [place] [facility] Branch traZODone 2020-0 Yes [id number] TK 1 T PO [facility] 100 mg 9-15 QD HS ity of tablet 00:00: [place] [facility] Branch traZODone 2020-0 Yes [id number] TK 1 T PO [facility] 100 mg 9-15 QD HS ity of tablet 00:00: [place] [facility] Branch traZODone 2020-0 Yes [id number] TK 1 T PO [facility] 100 mg 9-15 QD HS ity of tablet 00:00: [place] [facility] traZODone 2020-0 Yes [id number] TK 1 T PO [facility] 100 mg 9-15 QD HS ity of tablet 00:00: [place] [facility] Branch traZODone 2020-0 Yes [id number] TK 1 T PO [facility] 100 mg 9-15 QD HS ity of tablet 00:00: [place] [facility] Branch traZODone 2020-0 Yes [id number] TK 1 T PO [facility] 100 mg 9-15 QD HS ity of tablet 00:00: [place] 00 Medical Branch traZODone 2020-0 Yes [id number] TK 1 T PO [facility] 100 mg 9-15 QD HS ity of tablet 00:00: [place] 00 Medical Branch traZODone 2020-0 Yes [id number] TK 1 T PO [facility] 100 mg 9-15 QD HS ity of tablet 00:00: [place] [facility] Branch traZODone 2020-0 Yes [id number] TK 1 T PO [facility] 100 mg 9-15 QD HS ity of tablet 00:00: [address] Branch traZODone 2020-0 Yes [id number] TK 1 T PO [facility] 100 mg 9-15 QD HS ity of tablet 00:00: [address] Branch traZODone 2020-0 Yes [id number] TK 1 T PO [facility] 100 mg 9-15 QD HS ity of tablet 00:00: [address] Branch traZODone 2020-0 Yes [id number] TK 1 T PO [facility] 100 mg 9-15 QD HS ity of tablet 00:00: [address] Branch traZODone 2020-0 Yes [id number] TK 1 T PO [facility] 100 mg 9-15 QD HS ity of tablet 00:00: [address] Branch traZODone 2020-0 Yes [id number] TK 1 T PO [facility] 100 mg 9-15 QD HS ity of tablet 00:00: [address] Branch traZODone 2020-0 Yes [id number] TK 1 T PO [facility] 100 mg 9-15 QD HS ity of tablet 00:00: [place] [address] Medical Branch traZODone 2020-0 Yes [id number] TK 1 T PO [facility] 100 mg 9-15 QD HS ity of tablet 00:00: [address] Branch traZODone 2020-0 Yes [id number] TK 1 T PO [facility] 100 mg 9-15 QD HS ity of tablet 00:00: [address] Branch traZODone 2020-0 Yes [id number] TK 1 T PO [facility] 100 mg 9-15 QD HS ity of tablet 00:00: [address] Branch traZODone 2020-0 2021- No [id number] TK 1 T PO [facility] 100 mg 9-15 06-28 QD HS ity of tablet 00:00: 00:00 [place] 00 :00 Medical Branch traZODone 2020- No [id number] TK 1 T PO [facility] 100 mg 10-23 QD HS ity of tablet 00:00: 00:00 [place] 00 : Medical Branch oxycodone Yes 30mg Take 30 mg [facility] (OXY-IR) 30 2-10 by mouth [place] [facility] MG 20:41: every 8 of immediate 56 hours. Medicin release e tablet COMBIVENT Yes 1{puff} 1 Puff [place] rafa RESPIMAT 1-15 every 6 [facility] 20-100 00:00: hours. of MCG/ACT Medicin AERS e Fentanyl Fentanyl Yes [facility] as [facility] Citrate-NaC Citrate-NaC 10-05 [place] [facility] fluticasone Yes 1{puff} 1 Puff two [place] -salmeterol 2-08 times College (ADVAIR 00:00: daily. of DISKUS) Medicin 250-50 e MCG/DOSE inhaler oxymorphone 2015-02 Yes 10mg Take 10 mg [facility] (OPANA ER) 2-20 by mouth ity o f 20 mg 12 hr 22:08: [place]. [place] tablet [facility]- 2015-02 Yes 1{tbl} Take 1 Tab [facility] docusate 2-20 by mouth ity of sodium 22:08: daily. [place] (DOC-Q-LAX) Medical 8.6-50 mg Branch tablet zolpidem 2015-02 Yes 12.5mg Take 12.5 [facility] (AMBIEN CR) 2-20 mg by ity of 12.5 mg CR 22:08: mouth at [place] tablet 00 bedtime as Medical needed. Branch naproxen 2015-02 Yes 500mg Take 500 Univ ers (NAPROSYN) 2-20 mg by ity of 500 mg 22:08: mouth 2 [place] tablet 00 (two) Medical times [place] daily with meals. oxymorphone 2015-02 Yes 10mg Take 10 mg [facility] (OPANA ER) 2-20 by mouth ity o f 20 mg 12 hr 22:08: daily. [place] tablet Medical [facility]- 2015-02 Yes 1{tbl} Take 1 Tab [facility] docusate 2-20 by mouth ity of sodium 22:08: daily. [place] (DOC-Q-LAX) 00 Medical 8.6-50 mg Branch tablet zolpidem 2015-02 Yes 12.5mg Take 12.5 [facility] (AMBIEN CR) 2-20 mg by ity of 12.5 mg CR 22:08: mouth at [place] tablet 00 bedtime as Medical needed. Branch naproxen 2015-02 Yes 500mg Take 500 Univ ers (NAPROSYN) 2-20 mg by ity of 500 mg 22:08: mouth 2 [place] tablet 00 (two) Medical times [place] daily with meals. oxymorphone 2015-02 Yes 10mg Take 10 mg [facility] (OPANA ER) 2-20 by mouth ity o f 20 mg 12 hr 22:08: daily. [place] tablet 00 Medical [facility]- 2015-02 Yes 1{tbl} Take 1 Tab [facility] docusate 2-20 by mouth ity of sodium 22:08: daily. [place] (DOC-Q-LAX) 00 Medical 8.6-50 mg Branch tablet zolpidem 2015-02 Yes 12.5mg Take 12.5 [facility] (AMBIEN CR) 2-20 mg by ity of 12.5 mg CR 22:08: mouth at [place] tablet 00 bedtime as Medical needed. Branch naproxen 2015-02 Yes 500mg Take 500 Univ ers (NAPROSYN) 2-20 mg by ity of 500 mg 22:08: mouth 2 [place] tablet 00 (two) Medical times [place] daily with meals. oxymorphone 2015-02 Yes 10mg Take 10 mg [facility] (OPANA ER) 2-20 by mouth ity o f 20 mg 12 hr 22:08: daily. [place] tablet 00 Medical [facility]- 2015-02 Yes 1{tbl} Take 1 Tab [facility] docusate 2-20 by mouth ity of sodium 22:08: daily. [place] (DOC-Q-LAX) 00 Medical 8.6-50 mg Branch tablet zolpidem 2015-02 Yes 12.5mg Take 12.5 [facility] (AMBIEN CR) 2-20 mg by ity of 12.5 mg CR 22:08: mouth at [place] tablet 00 bedtime as Medical needed. Branch naproxen 2015-02 Yes 500mg Take 500 Univ ers (NAPROSYN) 2-20 mg by ity of 500 mg 22:08: mouth 2 [place] tablet 00 (two) Medical times [place] daily with meals. oxymorphone 2015-02 Yes 10mg Take 10 mg [facility] (OPANA ER) 2-20 by mouth ity o f 20 mg 12 hr 22:08: daily. [place] tablet Medical [facility]- 2015-02 Yes 1{tbl} Take 1 Tab [facility] docusate 2-20 by mouth ity of sodium 22:08: daily. [place] (DOC-Q-LAX) Medical 8.6-50 mg Branch tablet zolpidem 2015-02 Yes 12.5mg Take 12.5 [facility] (AMBIEN CR) 2-20 mg by ity of 12.5 mg CR 22:08: mouth at [place] tablet 00 bedtime as Medical needed. Branch naproxen 2015-02 Yes 500mg Take 500 Univ ers (NAPROSYN) 2-20 mg by ity of 500 mg 22:08: mouth 2 [place] tablet (two) Medical times [place] daily with meals. oxymorphone 2015-02 Yes 10mg Take 10 mg [facility] (OPANA ER) 2-20 by mouth ity o f 20 mg 12 hr 22:08: [place]. [place] [facility] Yes 1{tbl} Take 1 Tab [facility] docusate 2-20 by mouth ity of sodium 22:08: daily. [place] (DOC-Q-LAX) Medical 8.6-50 mg Branch tablet zolpidem 2015-02 Yes 12.5mg Take 12.5 [facility] (AMBIEN CR) 2-20 mg by ity of 12.5 mg CR 22:08: mouth at [place] tablet 00 bedtime as Medical needed. Branch naproxen 2015-02 Yes 500mg Take 500 Univ ers (NAPROSYN) 2-20 mg by ity of 500 mg 22:08: mouth 2 [place] tablet 00 (two) Medical times [place] daily with meals. oxymorphone 2015-02 Yes 10mg Take 10 mg [facility] (OPANA ER) 2-20 by mouth ity o f 20 mg 12 hr 22:08: [place] [facility]- 2015-02 Yes 1{tbl} Take 1 Tab [facility] docusate 2-20 by mouth ity of sodium 22:08: daily. [place] (DOC-Q-LAX) 00 Medical 8.6-50 mg Branch tablet zolpidem 2015-02 Yes 12.5mg Take 12.5 [facility] (AMBIEN CR) 2-20 mg by ity of 12.5 mg CR 22:08: mouth at [place] tablet 00 bedtime as Medical needed. Branch naproxen 2015-02 Yes 500mg Take 500 Univ ers (NAPROSYN) 2-20 mg by ity of 500 mg 22:08: mouth 2 [place] tablet 00 (two) Medical times [place] daily with meals. oxymorphone 2015-02 Yes 10mg Take 10 mg Univers (OPANA ER) 2-20 by mouth ity o f 20 mg 12 hr 22:08: [place] 00 [place] [facility]- 2015-02 Yes 1{tbl} Take 1 Tab Univers docusate 2-20 by mouth ity of sodium 22:08: daily. [place] (DOC-Q-LAX) 00 Medical 8.6-50 mg Branch tablet zolpidem 2015-02 Yes 12.5mg Take 12.5 [facility] [place] (AMBIEN CR) 2-20 mg by ity of 12.5 mg CR 22:08: mouth at [place] tablet 00 bedtime as Medical needed. Branch naproxen 2015-02 Yes 500mg Take 500 Univ ers (NAPROSYN) 2-20 mg by ity of 500 mg 22:08: mouth 2 [place] tablet 00 (two) Medical times [place] daily with meals. oxymorphone 2015-02 Yes 10mg Take 10 mg Univers (OPANA ER) 2-20 by mouth ity o f 20 mg 12 hr 22:08: [place] 00 Medical [facility]- 2015-02 Yes 1{tbl} Take 1 Tab Univers docusate 2-20 by mouth ity of sodium 22:08: daily. [place] (DOC-Q-LAX) 00 Medical 8.6-50 mg Branch tablet zolpidem 2015-02 Yes 12.5mg Take 12.5 [facility] [place] (AMBIEN CR) 2-20 mg by ity of 12.5 mg CR 22:08: mouth at [place] tablet 00 bedtime as Medical needed. Branch naproxen 2015-02 Yes 500mg Take 500 Univ ers (NAPROSYN) 2-20 mg by ity of 500 mg 22:08: mouth 2 [place] tablet 00 (two) Medical times Branch daily with meals. oxymorphone 2015-02 Yes 10mg Take 10 mg Univers (OPANA ER) 2-20 by mouth ity o f 20 mg 12 hr 22:08: daily. [place] 00 Medical [facility]- 2015-02 Yes 1{tbl} Take 1 Tab Univers docusate 2-20 by mouth ity of sodium 22:08: daily. [place] (DOC-Q-LAX) 00 Medical 8.6-50 mg Branch tablet zolpidem 2015-02 Yes 12.5mg Take 12.5 [facility] [place] (AMBIEN CR) 2-20 mg by ity of 12.5 mg CR 22:08: mouth at [place] tablet 00 bedtime as Medical needed. Branch naproxen 2015-02 Yes 500mg Take 500 Univ ers (NAPROSYN) 2-20 mg by ity of 500 mg 22:08: mouth 2 [place] tablet 00 (two) Medical times [place] daily with meals. oxymorphone 2015-02 Yes 10mg Take 10 mg Univers (OPANA ER) 2-20 by mouth it[place] o f 20 mg 12 hr 22:08: [place] tablet [facility]- 2015-02 Yes 1{tbl} Take 1 Tab Univers docusate 2-20 by mouth ity of sodium 22:08: daily. [place] (DOC-Q-LAX) 00 Medical 8.6-50 mg Branch tablet zolpidem 2015-02 Yes 12.5mg Take 12.5 [facility] [place] (AMBIEN CR) 2-20 mg by ity of 12.5 mg CR 22:08: mouth at [place] tablet 00 bedtime as Medical needed. Branch naproxen 2015-02 Yes 500mg Take 500 Univ ers (NAPROSYN) 2-20 mg by ity of 500 mg 22:08: mouth 2 [place] tablet 00 (two) Medical times Branch daily with meals. Fluticasone 2015-02 Yes [id number] 1{puff} Inhale 1 Univers -Salmeterol 2-20 Puff 2 ity of (ADVAIR) 00:00: (two) [place] 100-50 00 times Medical mcg/dose daily. Branch inhalation disk predniSONE 2015-02 Yes 50mg Take 1 Unive rs (DELTASONE) 2-20 tablet by ity of 50 mg 00:00: mouth [place] tablet 00 daily. Medical Branch ipratropium 2015-02 Yes 3mL Inhale 3 [facility] [place] -albuterol 2-20 mL every 4 ity of (DUONEB) 00:00: (four) [place] 0.5 mg-3 00 hours as Medical mg(2.5 mg needed for Bran ch base)/3 mL Wheezing, nebulizer Shortness solution of Breath, Bronchospa sm or Chest tightness. albuterol 2015-02 Yes 2{puff} Inhale 2 U nivers 90 2-20 Puffs ity of mcg/actuati 00:00: every 6 [place] on inhaler 00 (six) Medical hours as Branch needed for Wheezing or Shortness of Breath. Fluticasone 2015-02 Yes [id number] 1{puff} Inhale 1 Univers -Salmeterol 2-20 Puff 2 ity of (ADVAIR) 00:00: (two) [place] 100-50 00 times Medical mcg/dose daily. Branch inhalation disk predniSONE 2015-02 Yes 50mg Take 1 Unive rs (DELTASONE) 2-20 tablet by ity of 50 mg 00:00: mouth [place] tablet 00 daily. Medical Branch ipratropium 2015-02 Yes 3mL Inhale 3 [facility] -albuterol 2-20 mL every 4 ity of (DUONEB) 00:00: (four) [place] 0.5 mg-3 00 hours as Medical mg(2.5 mg needed for Bran ch base)/3 mL Wheezing, nebulizer Shortness solution of Breath, Bronchospa sm or Chest tightness. albuterol 2015-02 Yes 2{puff} Inhale 2 U nivers 90 2-20 Puffs ity of mcg/actuati 00:00: every 6 [place] on inhaler 00 (six) Medical hours as Branch needed for Wheezing or Shortness of Breath. Fluticasone 2015-02 Yes [id number] 1{puff} Inhale 1 Univers -Salmeterol 2-20 Puff 2 ity of (ADVAIR) 00:00: (two) [place] 100-50 00 times Medical mcg/dose daily. Branch inhalation disk predniSONE 2015-02 Yes 50mg Take 1 Unive rs (DELTASONE) 2-20 tablet by ity of 50 mg 00:00: mouth [place] tablet 00 daily. Medical Branch ipratropium 2015-02 Yes 3mL Inhale 3 [facility] [place] -albuterol 2-20 mL every 4 ity of (DUONEB) 00:00: (four) [place] 0.5 mg-3 00 hours as Medical mg(2.5 mg needed for Bran ch base)/3 mL Wheezing, nebulizer Shortness solution of Breath, Bronchospa sm or Chest tightness. albuterol 2015-02 Yes 2{puff} Inhale 2 U nivers 90 2-20 Puffs ity of mcg/actuati 00:00: every 6 [place] on inhaler 00 (six) Medical hours as Branch needed for Wheezing or Shortness of Breath. Fluticasone 2015-02 Yes [id number] 1{puff} Inhale 1 Univers -Salmeterol 2-20 Puff 2 ity of (ADVAIR) 00:00: (two) [place] 100-50 00 times Medical mcg/dose daily. Branch inhalation disk predniSONE 2015-02 Yes 50mg Take 1 Unive rs (DELTASONE) 2-20 tablet by ity of 50 mg 00:00: mouth [place] tablet 00 daily. Medical Branch ipratropium 2015-02 Yes 3mL Inhale 3 [facility] [place] -albuterol 2-20 mL every 4 ity of (DUONEB) 00:00: (four) [place] 0.5 mg-3 00 hours as Medical mg(2.5 mg needed for Bran ch base)/3 mL Wheezing, nebulizer Shortness solution of Breath, Bronchospa sm or Chest tightness. albuterol 2015-02 Yes 2{puff} Inhale 2 U nivers 90 2-20 Puffs ity of mcg/actuati 00:00: every 6 [place] on inhaler 00 (six) Medical hours as Branch needed for Wheezing or Shortness of Breath. Fluticasone 2015-02 Yes [id number] 1{puff} Inhale 1 Univers -Salmeterol 2-20 Puff 2 ity of (ADVAIR) 00:00: (two) [place] 100-50 00 times Medical mcg/dose daily. Branch inhalation disk predniSONE 2015-02 Yes 50mg Take 1 Unive rs (DELTASONE) 2-20 tablet by ity of 50 mg 00:00: mouth [place] tablet 00 daily. Medical Branch ipratropium 2015-02 Yes 3mL Inhale 3 [facility] [place] -albuterol 2-20 mL every 4 ity of (DUONEB) 00:00: (four) [place] 0.5 mg-3 00 hours as Medical mg(2.5 mg needed for Bran ch base)/3 mL Wheezing, nebulizer Shortness solution of Breath, Bronchospa sm or Chest tightness. albuterol 2015-02 Yes 2{puff} Inhale 2 U nivers 90 2-20 Puffs ity of mcg/actuati 00:00: every 6 [place] on inhaler 00 (six) Medical hours as Branch needed for Wheezing or Shortness of Breath. Fluticasone 2015-02 Yes [id number] 1{puff} Inhale 1 Univers -Salmeterol 2-20 Puff 2 ity of (ADVAIR) 00:00: (two) [place] 100-50 00 times Medical mcg/dose daily. Branch inhalation disk predniSONE 2015-02 Yes 50mg Take 1 Unive rs (DELTASONE) 2-20 tablet by ity of 50 mg 00:00: mouth [place] tablet 00 daily. Medical Branch ipratropium 2015-02 Yes 3mL Inhale 3 [facility] [place] -albuterol 2-20 mL every 4 ity of (DUONEB) 00:00: (four) [place] 0.5 mg-3 00 hours as Medical mg(2.5 mg needed for Bran ch base)/3 mL Wheezing, nebulizer Shortness solution of Breath, Bronchospa sm or Chest tightness. albuterol 2015-02 Yes 2{puff} Inhale 2 U nivers 90 2-20 Puffs ity of mcg/actuati 00:00: every 6 [place] on inhaler 00 (six) Medical hours as Branch needed for Wheezing or Shortness of Breath. Fluticasone 2015-02 Yes [id number] 1{puff} Inhale 1 Univers -Salmeterol 2-20 Puff 2 ity of (ADVAIR) 00:00: (two) [place] 100-50 00 times Medical mcg/dose daily. Branch inhalation disk predniSONE 2015-02 Yes 50mg Take 1 Unive rs (DELTASONE) 2-20 tablet by ity of 50 mg 00:00: mouth [place] tablet 00 daily. Medical Branch ipratropium 2015-02 Yes 3mL Inhale 3 [facility] [place] -albuterol 2-20 mL every 4 ity of (DUONEB) 00:00: (four) [place] 0.5 mg-3 00 hours as Medical mg(2.5 mg needed for Bran ch base)/3 mL Wheezing, nebulizer Shortness solution of Breath, Bronchospa sm or Chest tightness. albuterol 2015-02 Yes 2{puff} Inhale 2 U nivers 90 2-20 Puffs ity of mcg/actuati 00:00: every 6 [place] on inhaler 00 (six) Medical hours as Branch needed for Wheezing or Shortness of Breath. Fluticasone 2015-02 Yes [id number] 1{puff} Inhale 1 Univers -Salmeterol 2-20 Puff 2 ity of (ADVAIR) 00:00: (two) [place] 100-50 00 times Medical mcg/dose daily. Branch inhalation disk predniSONE 2015-02 Yes 50mg Take 1 Unive rs (DELTASONE) 2-20 tablet by ity of 50 mg 00:00: mouth [place] tablet 00 daily. Medical Branch ipratropium 2015-02 Yes 3mL Inhale 3 [facility] [place] -albuterol 2-20 mL every 4 ity of (DUONEB) 00:00: (four) [place] 0.5 mg-3 00 hours as Medical mg(2.5 mg needed for Bran ch base)/3 mL Wheezing, nebulizer Shortness solution of Breath, Bronchospa sm or Chest tightness. albuterol 2015-02 Yes 2{puff} Inhale 2 U nivers 90 2-20 Puffs ity of mcg/actuati 00:00: every 6 [place] on inhaler 00 (six) Medical hours as Branch needed for Wheezing or Shortness of Breath. Fluticasone 2015-02 Yes [id number] 1{puff} Inhale 1 Univers -Salmeterol 2-20 Puff 2 ity of (ADVAIR) 00:00: (two) [place] 100-50 00 times Medical mcg/dose daily. Branch inhalation disk predniSONE 2015-02 Yes 50mg Take 1 Unive rs (DELTASONE) 2-20 tablet by ity of 50 mg 00:00: mouth [place] tablet 00 daily. Medical Branch ipratropium 2015-02 Yes 3mL Inhale 3 [facility] -albuterol 2-20 mL every 4 ity of (DUONEB) 00:00: (four) [place] 0.5 mg-3 00 hours as Medical mg(2.5 mg needed for Bran ch base)/3 mL Wheezing, nebulizer Shortness solution of Breath, Bronchospa sm or Chest tightness. albuterol 2015-02 Yes 2{puff} Inhale 2 U nivers 90 2-20 Puffs ity of mcg/actuati 00:00: every 6 [place] on inhaler 00 (six) Medical hours as Branch needed for Wheezing or Shortness of Breath. Fluticasone 2015-02 Yes [id number] 1{puff} Inhale 1 Univers -Salmeterol 2-20 Puff 2 ity of (ADVAIR) 00:00: (two) [place] 100-50 00 times Medical mcg/dose daily. Branch inhalation disk predniSONE 2015-02 Yes 50mg Take 1 Unive rs (DELTASONE) 2-20 tablet by ity of 50 mg 00:00: mouth [place] tablet 00 daily. Medical Branch ipratropium 2015-02 Yes 3mL Inhale 3 [facility] -albuterol 2-20 mL every 4 ity of (DUONEB) 00:00: (four) [place] 0.5 mg-3 00 hours as Medical mg(2.5 mg needed for Bran ch base)/3 mL Wheezing, nebulizer Shortness solution of Breath, Bronchospa sm or Chest tightness. albuterol 2015-02 Yes 2{puff} Inhale 2 U nivers 90 2-20 Puffs ity of mcg/actuati 00:00: every 6 [place] on inhaler 00 (six) Medical hours as Branch needed for Wheezing or Shortness of Breath. Fluticasone 2015-02 Yes [id number] 1{puff} Inhale 1 Univers -Salmeterol 2-20 Puff 2 ity of (ADVAIR) 00:00: (two) [place] 100-50 00 times Medical mcg/dose daily. Branch inhalation disk predniSONE 2015-02 Yes 50mg Take 1 Unive rs (DELTASONE) 2-20 tablet by ity of 50 mg 00:00: mouth [place] tablet 00 daily. Medical Branch ipratropium 2015-02 Yes 3mL Inhale 3 [facility] -albuterol 2-20 mL every 4 ity of (DUONEB) 00:00: (four) [place] 0.5 mg-3 00 hours as Medical mg(2.5 mg needed for Bran ch base)/3 mL Wheezing, nebulizer Shortness solution of Breath, Bronchospa sm or Chest tightness. albuterol 2015-02 Yes 2{puff} Inhale 2 U nivers 90 2-20 Puffs ity of mcg/actuati 00:00: every 6 [place] on inhaler 00 (six) Medical hours as Branch needed for Wheezing or Shortness of Breath. Fluticasone 2015-02 Yes [id number] 1{puff} Inhale 1 Univers -Salmeterol 2-20 Puff 2 ity of (ADVAIR) 00:00: (two) [place] 100-50 00 times Medical mcg/dose daily. Branch inhalation disk Fluticasone 2015-02 Yes [id number] 1{puff} Inhale 1 Univers -Salmeterol 2-20 Puff 2 ity of (ADVAIR) 00:00: (two) [place] 100-50 00 times Medical mcg/dose daily. Branch inhalation disk Fluticasone 2015-02 Yes [id number] 1{puff} Inhale 1 Univers -Salmeterol 2-20 Puff 2 ity of (ADVAIR) 00:00: (two) [place] 100-50 00 times Medical mcg/dose daily. Branch inhalation disk Fluticasone 2015-02 Yes [id number] 1{puff} Inhale 1 Univers -Salmeterol 2-20 Puff 2 ity of (ADVAIR) 00:00: (two) [place] 100-50 00 times Medical mcg/dose daily. Branch inhalation disk Fluticasone 2015-02 Yes [id number] 1{puff} Inhale 1 Univers -Salmeterol 2-20 Puff 2 ity of (ADVAIR) 00:00: (two) [place] 100-50 00 times Medical mcg/dose daily. Branch inhalation disk Fluticasone 2015-02 Yes [id number] 1{puff} Inhale 1 Univers -Salmeterol 2-20 Puff 2 ity of (ADVAIR) 00:00: (two) [place] 100-50 00 times Medical mcg/dose daily. Branch inhalation disk Fluticasone 2015- Yes [id number] 1{puff} Inhale 1 Univers -Salmeterol 2-20 Puff 2 ity of (ADVAIR) 00:00: (two) [place] 100-50 00 times Medical mcg/dose daily. Branch inhalation disk Fluticasone 2015- Yes [id number] 1{puff} Inhale 1 Univers -Salmeterol 2-20 Puff 2 ity of (ADVAIR) 00:00: (two) [place] 100-50 00 times Medical mcg/dose daily. Branch inhalation disk Fluticasone 2015-02 Yes [id number] 1{puff} Inhale 1 Univers -Salmeterol 2-20 Puff 2 ity of (ADVAIR) 00:00: (two) [place] 100-50 00 times Medical mcg/dose daily. Branch inhalation disk Fluticasone 2015-02 Yes [id number] 1{puff} Inhale 1 Univers -Salmeterol 2-20 Puff 2 ity of (ADVAIR) 00:00: (two) [place] 100-50 00 times Medical mcg/dose daily. Branch inhalation disk Fluticasone 2015-02 Yes [id number] 1{puff} Inhale 1 Univers -Salmeterol 2-20 Puff 2 ity of (ADVAIR) 00:00: (two) [place] 100-50 00 times Medical mcg/dose daily. Branch inhalation disk Fluticasone 2015-02 Yes [id number] 1{puff} Inhale 1 Univers -Salmeterol 2-20 Puff 2 ity of (ADVAIR) 00:00: (two) [place] 100-50 00 times Medical mcg/dose daily. Branch inhalation disk Fluticasone 2015-02 Yes [id number] 1{puff} Inhale 1 Univers -Salmeterol 2-20 Puff 2 ity of (ADVAIR) 00:00: (two) [place] 100-50 00 times Medical mcg/dose daily. Branch inhalation disk Fluticasone 2015- Yes [id number] 1{puff} Inhale 1 Univers -Salmeterol 2-20 Puff 2 ity of (ADVAIR) 00:00: (two) [place] 100-50 00 times Medical mcg/dose daily. Branch inhalation disk Fluticasone 2015-02 Yes [id number] 1{puff} Inhale 1 Univers -Salmeterol 2-20 Puff 2 ity of (ADVAIR) 00:00: (two) [place] 100-50 00 times Medical mcg/dose daily. Branch inhalation disk Fluticasone 2015-02 Yes [id number] 1{puff} Inhale 1 Univers -Salmeterol 2-20 Puff 2 ity of (ADVAIR) 00:00: (two) [place] 100-50 00 times Medical mcg/dose daily. Branch inhalation disk predniSONE 2015-02 2020- No 50mg Take 1 Univ ers (DELTASONE) 2-20 11-17 tablet by it y of 50 mg 00:00: 00:00 mouth [place] tablet 00 :00 daily. Medical Branch ipratropium 2015-02- No 3mL Inhale 3 U nivers -albuterol 2-20 11-17 mL every 4 it y of (DUONEB) 00:00: 00:00 (four) [place] 0.5 mg-3 00 :00 hours as Medical mg(2.5 mg needed for Bran ch base)/3 mL Wheezing, nebulizer Shortness solution of Breath, Bronchospa sm or Chest tightness. albuterol 2015-02 2020- No 2{puff} Inhale 2 Univers 90 2-20 11-17 Puffs ity of mcg/actuati 00:00: 00:00 every 6 [place] inhaler 00 :00 (six) Medical hours as Branch needed for Wheezing or Shortness of Breath. predniSONE 2015-02- No 50mg Take 1 Univ ers (DELTASONE) 2-20 11-17 tablet by it y of 50 mg 00:00: 00:00 mouth [place] tablet 00 :00 daily. Medical Branch ipratropium 2015-02 2020- No 3mL Inhale 3 U nivers -albuterol 2-20 11-17 mL every 4 it y of (DUONEB) 00:00: 00:00 (four) [place] 0.5 mg-3 00 :00 hours as Medical mg(2.5 mg needed for Bran ch base)/3 mL Wheezing, nebulizer Shortness solution of Breath, Bronchospa sm or Chest tightness. albuterol 2015-02 2020- No 2{puff} Inhale 2 Univers 90 2-20 11-17 Puffs ity of mcg/actuati 00:00: 00:00 every 6 [place] inhaler 00 :00 (six) Medical hours as Branch needed for Wheezing or Shortness of Breath. predniSONE 2015-02- No 50mg Take 1 Univ ers (DELTASONE) 2-20 11-17 tablet by it y of 50 mg 00:00: 00:00 mouth [place] tablet 00 :00 daily. Medical Branch ipratropium 2015-02- No 3mL Inhale 3 U nivers -albuterol 2-20 11-17 mL every 4 it y of (DUONEB) 00:00: 00:00 (four) [place] 0.5 mg-3 00 :00 hours as Medical mg(2.5 mg needed for Bran ch base)/3 mL Wheezing, nebulizer Shortness solution of Breath, Bronchospa sm or Chest tightness. albuterol 2015-02- No 2{puff} Inhale 2 Univers 90 2-20 11-17 Puffs ity of mcg/actuati 00:00: 00:00 every 6 [place] inhaler 00 :00 (six) Medical hours as Branch needed for Wheezing or Shortness of Breath. Tizanidine Tizanidine Yes [place] TAKE [address] [facility] HCl HCl [place] CAPSULE BY [facility] 2 [facility] TIMES A l DAY FOR [facility] MUSCLE ent SPASMS Clinics Omeprazole Omeprazole Yes [place] [address] [facility] [place] [facility] Venlafaxine Venlafaxine Yes [place] [address] [facility] HCl HCl [place] with food [facility] Advair Advair Yes [place] INL [address] [facility] [address] [facility] Diskus Diskus [place] PO BID [facility] Oxycodone Oxycodone Yes [place] (Schedule [facility] HCl HCl [place] II Drug) [facility] TA[facility] 1 [facility] TABLET BY l MOUTH 1 Outpati TIME A DAY ent NEEDED Clinics FOR PAIN Metoprolol Metoprolol Yes [place] [address] [facility] Tartrate Tartrate [place] with food [facility] Combivent Combivent Yes [place] [address] [facility] Respimat Respimat [place] [facility] Lyrica Lyrica Yes [place] (Schedule [facility] [place] V Drug) [facility] - TAKE 1 TO [facility] 3 CAPSULES l BY MOUTH [facility] EVERY ent NIGHT Clinics Mobic Mobic Yes [place] [address] [facility] [place] [facility] Meloxicam Meloxicam Yes [place] TAKE [address] [facility] [place] TABLET BY [facility] EVERY DAY l [facility]pat[facility] ent Clinics Immunizations Ordered Filled Immunization Date Status Comments Sour e Immunization Name Name SARS-COV-2 COVID-19 2020-05-16 Completed Unive rsity of PFIZER VACCINE 00:00:00 [facility] SARS-COV-2 COVID-19 2020-05-16 Completed Unive rsity of PFIZER VACCINE 00:00:00 [facility] SARS-COV-2 COVID-19 2020-05-16 Completed Unive rsity of PFIZER VACCINE 00:00:00 [facility] SARS-COV-2 COVID-19 2020-05-16 Completed Unive rsity of PFIZER VACCINE 00:00:00 [facility] SARS-COV-2 COVID-19 2020-04-25 Completed Unive rsity of PFIZER VACCINE 00:00:00 [facility] SARS-COV-2 COVID-19 2020-04-25 Completed Unive rsity of PFIZER VACCINE 00:00:00 [facility] SARS-COV-2 COVID-19 2020-04-25 Completed Unive rsity of PFIZER VACCINE 00:00:00 [facility] SARS-COV-2 COVID-19 2020-04-25 Completed Unive rsity of PFIZER VACCINE 00:00:00 [facility] SARS-COV-2 COVID-19 2020-04-25 Completed Unive rsity of PFIZER VACCINE 00:00:00 [facility] SARS-COV-2 COVID-19 2020-04-25 Completed Unive rsity of PFIZER VACCINE 00:00:00 [facility] SARS-COV-2 COVID-19 2020-04-25 Completed Unive rsity of PFIZER VACCINE 00:00:00 [facility] SARS-COV-2 COVID-19 2020-04-25 Completed Unive rsity of PFIZER VACCINE 00:00:00 [facility] Vital Signs Vital Name Observation Time Observation Value Comments Source Systolic blood 2020-08-05 15:05:00 116 mm[Hg] Univer sity of pressure [place] [facility] Diastolic blood 2020-08-05 15:05:00 78 mm[Hg] Unive rsity of pressure [place] [facility] Heart rate 2020-08-05 15:05:00 82 /min [facility] [place] [facility] Respiratory rate 2020-08-05 15:05:00 16 /min Univ ers[facility] of [place] [facility] Body height 2020-08-05 15:05:00 160 cm [facility] [place] [facility] Body weight 2020-08-05 15:05:00 96.979 kg [facility] [place] [facility] BMI 2020-08-05 15:05:00 37.87 kg/m2 [facility] [place] [facility] Oxygen saturation in 2020-08-05 15:05:00 93 /min University of Arterial blood by [place] [employer] reji Pulse oximetry Branch Systolic blood 2020-04-30 14:09:00 118 mm[Hg] Univer sity of pressure [place] [facility] Diastolic blood 2020-04-30 14:09:00 72 mm[Hg] Unive rsity of pressure [place] [facility] Heart rate 2020-04-30 14:09:00 83 /min [facility] [place] [facility] Body height 2020-04-30 14:09:00 160 cm [facility] [place] [facility] Body weight 2020-04-30 14:09:00 98.839 kg [facility] [place] [facility] BMI 2020-04-30 14:09:00 38.60 kg/m2 [facility] [place] [facility] Oxygen saturation in 2020-04-30 14:09:00 97 /min University of Arterial blood by [place] [employer] reji Pulse oximetry Branch Systolic blood 2019-12-26 17:37:00 120 mm[Hg] Univer sity of pressure [place] [facility] Diastolic blood 2019-12-26 17:37:00 78 mm[Hg] Unive rsity of pressure [place] [facility] Heart rate 2019-12-26 17:37:00 75 /min [facility] [place] [facility] Respiratory rate 2019-12-26 17:37:00 20 /min Univ ers[facility] [place] [facility] Body height 2019-12-26 17:37:00 160 cm [facility]i [facility] [place] [facility] Body weight 2019-12-26 17:37:00 94.62 kg [facility] [place] [facility] BMI 2019-12-26 17:37:00 36.95 kg/m2 Universi ty of [facility] [place] [facility] Oxygen saturation in 2019-12-26 17:37:00 94 /min University Arterial blood by [facility] Pulse oximetry Branch Systolic blood 2019-11-29 15:39:00 146 mm[Hg] Univer sity of pressure [place] [facility] [place] Diastolic blood 2019-11-29 15:39:00 78 mm[Hg] Unive rsity of pressure [facility] [place] [facility] Body height 2019-11-29 15:39:00 160 cm [facility]i [facility] [place] [facility] Body weight 2019-11-29 15:39:00 94.348 kg [facility] [place] [facility] BMI 2019-11-29 15:39:00 36.85 kg/m2 Universi ty of [facility] [place] [facility] Systolic blood 2019-11-07 14:57:00 134 mm[Hg] Univer sity of pressure [facility] [place] [facility] Diastolic blood 2019-11-07 14:57:00 72 mm[Hg] Unive rsity of pressure [facility] [place] [facility] Heart rate 2019-11-07 14:57:00 71 /min [facility]i [facility] [place] [facility] [place] Body temperature 2019-11-07 14:57:00 35.89 Radha Univ ersity of [facility] [place] [facility] Respiratory rate 2019-11-07 14:57:00 18 /min Univ ersity of [facility] [place] [facility] Body height 2019-11-07 14:57:00 160 cm [facility]i [facility] [place] [facility] [place] Body weight 2019-11-07 14:57:00 96.616 kg [facility] [place] [facility] [place] BMI 2019-11-07 14:57:00 37.73 kg/m2 Universi ty of [facility] [place] [facility] Systolic blood 2019-03-20 20:41:00 134 mm[Hg] [facility] Medicine Diastolic blood 2019-03-20 20:41:00 81 mm[Hg] [facility] Medicine Heart rate 2019-03-20 20:41:00 97 /min [facility] Respiratory rate 2019-03-20 20:41:00 16 /min [facility] Body height 2019-03-20 20:41:00 160 cm [facility] Body weight 2019-03-20 20:41:00 86.183 kg [facility] BMI 2019-03-20 20:41:00 33.66 kg/m2 [facility] Oxygen saturation in 2019-03-20 20:41:00 100 /min [facility] Arterial blood by Medicine Pulse oximetry Systolic blood 2019-03-20 20:41:00 134 mm[Hg] [facility] pressure Medicine Diastolic blood 2019-03-20 20:41:00 81 mm[Hg] [facility] Medicine Heart rate 2019-03-20 20:41:00 97 /min [facility] Respiratory rate 2019-03-20 20:41:00 16 /min [facility] Body height 2019-03-20 20:41:00 160 cm [facility] Body weight 2019-03-20 20:41:00 86.183 kg [facility] BMI 2019-03-20 20:41:00 33.66 kg/m2 [facility] Oxygen saturation in 2019-03-20 20:41:00 100 /min [facility] Arterial blood by Medicine Pulse oximetry Procedures Procedure Date / Time Performing Clinician Source Performed PATIENT QUESTIONNAIRE 2020-04-30 05:01:00 Doctor Unassigned, No [facility] PATIENT QUESTIONNAIRE 2020-01-24 06:01:00 Doctor Unassigned, No [facility] PATIENT QUESTIONNAIRE 2019-11-28 05:01:00 Doctor Unassigned, No [facility] EKG-12 LEAD 2019-11-07 14:52:30 Nehemiah Tavarez [facility] REFERRAL- 2019-11-01 05:01:00 Doctor Unassigned, No [facility] REQUEST/RESPONSE [facility] Plan of Care Planned Activity Planned Date Details Comments Source Future Scheduled Test COLON CANCER SCREENING: [facility] COLONOSCOPY [code = Medicine COLON CANCER SCREENING: COLONOSCOPY] Future Scheduled Test MAMMOGRAM ANNUAL [code [facility] = MAMMOGRAM ANNUAL] Medicine Future Scheduled Test TETANUS SHOT (ADULT) [facility] [code = TETANUS SHOT Medicin e (ADULT)] Future Scheduled Test BMI FOLLOW UP PLAN [facility] [code = BMI FOLLOW UP Medici ne PLAN] Future Scheduled Test HIV SCREENING [code = [facility] HIV SCREENING] Medicine Future Scheduled Test CERVICAL CANCER [facility] SCREENING 3 YEAR FOLLOW Medi cine UP [code = CERVICAL CANCER SCREENING 3 YEAR FOLLOW UP] Future Scheduled Test FLU VACCINE > 6 MONTHS [facility] [code = FLU VACCINE > 6 Medi cine MONTHS] Encounters Start End Encounter Admission Attending Care Care Encounter Source Date/Time Date/Time Type Type Clinicians Facility Department ID 2021-05-12 2021-05-12 Outpatient Ludivina TAVAREZ [facility] [id number] -[id number] Univers 11:00:00 11:00:00 SENDIL [id number] ity [facility] 2020-10-01 2020-10-01 Outpatient Ludivina TAVAREZ [facility] [id number] -[id number] Univers 11:30:00 11:30:00 SENDIL [id number] ity [facility] 2020-08-19 2020-08-19 Outpatient Ludivina TAVAREZ [facility] [id number] -[id number] Univers 16:00:00 16:00:00 [facility] [id number] [facility]-05 2020-08-05 Office Daysi ALSENA 1.2.840.114 [id number] Univers 09:54:52 10:57:13 Visit Sendil Ayesha Alex[id number] [facility] [id number] Michell Abraham [phone] In dical nal 059 [facility] 2020-08-05 2020-08-05 Outpatient Ludivina TAVAREZ [facility] [id number] -[id number] Univers 10:00:00 10:00:00 SENDIL [id number] ity [facility] 2020-08-05 2020-08-05 Outpatient Ludivina TAVAREZ [facility] [id number] Univers 10:00:00 10:00:00 SENDIL ity [facility] 2020-07-29 2020-07-29 Outpatient Ludivina TAVAREZ [facility] [id number] -[id number] Univers 08:30:00 08:30:00 SENDIL [id number] ity [facility] 2020-07-29 2020-07-29 Outpatient Ludivina TAVAREZ [facility] [id number] Univers 08:30:00 08:30:00 [facility] 2020-07-29 2020-07-29 Telephone Daysi [facility] 1..939.057 [id number] Univers 00:00:00 00:00:00 Sendil Ayesha Alexis [id number] [id number] [phone] In dicnd nal 9 [facility] 2020-06-20 2020-06-20 Telephone Fraga Chantel 1..840.114 [id number] Univers 00:00:00 00:00:00 , Bonny Sylvester [id number] ity [phone] [address] 2020-05-16 2020-05-16 Outpatient R IHSAN [facility] [id number] Univers 10:00:00 10:00:00 SHIVA [facility] 2020-04-30 2020-04-30 [facility] [id number] -[id number] Univers 16:00:00 16:00:00 SENDIL [id number] [facility] 2020-04-30 2020-04-30 [facility] [id number] Univers 16:00:00 16:00:00 SENDIL [facility] 2020-04-30 2020-04-30 [facility] 1..840.114 [id number] Univers 08:47:46 09:35:24 Visit Sendil Ayesha Alexis [id number] [id number] [phone] [address] 2020-04-30 2020-04-30 [facility] [id number] Univers 09:00:00 09:00:00 SENDIL [facility] 2020-04-30 2020-04-30 [facility] 1..323.120 [id number] Univers 00:00:00 00:00:00 Sendil Ayesha Alexis [id number] [id number] [phone] In dical nal 059 [facility] 2020-04-30 2020-04-30 Orders Doctor JANET 1.2.840.114 [id number] Univers 00:00:00 00:00:00 Only Unassigned, ZOE 350.1.13.10 ity of [place] [facility] [id number] Jean as [phone] [address] 2020-04-25 2020-04-25 Outpatient [facility] [id number] Univers 10:00:00 10:00:00 ity [facility] 2020-04-23 2020-04-23 [facility] 1.2.840.114 [id number] Univers 00:00:00 00:00:00 Outreach Moris FAROOQ [id number] [facility] [id number] [phone] [address] 2020-04-04 2020-04-04 [facility] 1.2.853.590 [id number] Univers 00:00:00 00:00:00 Sendil Ayesha Alexis [id number] [place] of [id number] [phone] [place] 580249 [facility] 2020-03-27 2020-03-27 [facility] 1.2.875.571 [id number] Univers 00:00:00 00:00:00 Sendil Ayesha Alexis [id number] [id number] [phone] In dical nal 9 [facility] 2020-03-26 2020-03-26 Outpatient R DAYSI [facility] [id number] -[id number] Univers 13:00:00 13:00:00 SENDIL [id number] ity [facility] 2020-03-26 2020-03-26 Outpatient R DAYSI [facility] [id number] Univers 13:00:00 13:00:00 [facility] 2020-03-19 2020-03-19 Outpatient R [facility] [id number] -[id number] Univers 16:00:00 16:00:00 [id number] ity of [facility] 2020-03-19 2020-03-19 Outpatient R [facility] [id number] Univers 16:00:00 16:00:00 ity of [facility] 2020-01-24 2020-01-24 Orders Doctor JANET 1.2.840.114 [id number] Univers 00:00:00 00:00:00 Only Unassigned, ZOE 350.1.13.10 [facility] 4.2.7.2.686 Jean as [phone] [address] 2020-01-22 2020-01-22 Telephone Daysi [facility] 1.2.275.075 [id number] Univers 00:00:00 00:00:00 Sendgeorgiana Alexis [id number] [id number] [phone] In vinnie fitzgerald [address] [place] [address] 2019-12-26 2019-12-26 Office Daysi [facility] 1.2.840.114 [id number] Univers 11:27:43 12:06:42 Visit Nehemiah Alexis 350.1.13.10 [place] of [id number] [phone] In vinnie fitzgerald 059 [facility] 2019-12-26 2019-12-26 [facility] [id number] -[id number] Univers 11:30:00 11:30:00 SENDGEORGIANA [id number] ity [facility] 2019-12-26 2019-12-26 [facility] [id number] Univers 11:30:00 11:30:00 SENDIL ity [facility] 2019-12-12 2019-12-12 Nurse Visit, [facility] Nurse [facility] 1.2.840.1 [id number] Univers 08:00:32 08:30:32 Visit Nehemiah Tavarez 350.1.13. 10 [id number] [phone] In dical nal 059 [facility] 2019-12-12 2019-12-12 Outpatient R [facility] [id number] -[id number] Univers 08:00:00 08:00:00 ity of [facility] 2019-12-12 2019-12-12 Outpatient R [facility] [id number] Univers 08:00:00 08:00:00 ity of [facility] 2019-11-30 2019-11-30 [facility] [id number] Univers 00:00:00 00:00:00 Sendgeorgiana Alexis 350.1.13.10 [place] [phone] In dical nal 059 [facility] 2019-11-29 2019-11-29 Laboratory Pc, Adc Echo Room 1 - [facility] 1 .2.840.114 [id number] Univers 10:00:16 11:30:16 Only Tom Araujo 350.1.13.10 [place] of [place] [phone] In dical nal 059 [facility] 2019-11-29 2019-11-29 Outpatient R [facility] [id number] -[id number] Univers 10:00:00 10:00:00 [id number] ity of [facility] 2019-11-29 2019-11-29 Outpatient R [facility] [id number] Univers 10:00:00 10:00:00 ity of [facility] 2019-11-28 2019-11-28 Lockstitch Cup Setter Nahun, Adc Lab Main [facility] 1.2.8 40.114 [id number] Univers 12:29:40 12:44:40 Visit Tom Araujo 350.1.13.10 it[place] of [place] [phone] In dical nal 353 [facility] 2019-11-28 2019-11-28 Outpatient R [facility] [id number] -[id number] Univers 12:30:00 12:30:00 [id number] ity of [facility] 2019-11-28 2019-11-28 [facility] [id number] Univers 12:30:00 12:30:00 MERCYNGJUN ity o f [facility] 2019-11-28 2019-11-28 Orders Doctor JANET 1.2.840.114 [id number] Univers 00:00:00 00:00:00 Only Unassigned, ZOE 350.1.13.10 ity of [place] [facility] 4.2.7.2.686 Jean as [phone] [address] 2019-11-27 2019-11-27 Outpatient R [facility] [id number] -[id number] Univers 10:00:00 10:00:00 [id number] ity of [facility] 2019-11-27 2019-11-27 Outpatient R [facility] [id number] Univers 10:00:00 10:00:00 ity of [facility] 2019-11-24 2019-11-24 Telephone [facility] [id number] Univers 00:00:00 00:00:00 Sendgeorgiana Alexis 350.1.13.10 [place] [phone] In dicnd nal [address] [place] [address] 2019-11-07 2019-11-15 [facility] 1.2.840.114 [id number] Univers 09:37:41 08:11:02 Visit Nehemiah Alexis 350.1.13.10 it[place] of [place] [phone] In dical nal [address] [place] [address] 2019-11-07 2019-11-07 [facility] [id number] Univers 09:30:00 09:30:00 SENDIL ity of [facility] 2019-11-01 2019-11-01 Orders Doctor GONZALES 1.2.840.114 [id number] Univers 00:00:00 00:00:00 Only Unassigned, ZOE 350.1.13.10 ity of [place] [facility] 4.2.7.2.686 Jean as [phone] [address] 2019-03-20 2019-03-20 Office Catalina MELTON 1.2.840.114 [id number] 13:40:26 14:26:59 Visit , Jose E AMBULATOR 350.1.13.21 Y 0.2.7.2.686 [phone] [facility] 2019-03-20 2019-03-20 [facility] 1.2.840.114 [id number] [facility] 13:40:26 14:26:59 Visit , Josee AMBULATOR 350.1.13.21 College Y 0.2.7.2.686 of [phone] [facility] 300 e 2018-03-28 2018-03-28 [facility] [id number] [address] 14:30:00 14:30:00 [facility] 2018-03-01 2018-03-01 [facility] [id number] 09:34:00 09:34:00 t [facility] ent Clinics 2018-02-02 2018-02-02 [facility] [id number] 08:46:00 08:46:00 t [facility] ent [facility] 2018-01-25 2018-01-25 [facility] [id number] 13:30:00 13:30:00 t [facility] ent [facility] 2017-11-11 2017-11-11 [facility] [id number] 11:00:00 11:00:00 t [facility] ent Clinics 2017-10-28 2017-10-28 [facility] [id number] 10:30:00 10:30:00 t [facility] [place] ent [facility] 2012-03-21 2012-03-21 Outpatient [facility] [id number] -[id number] Univers 00:00:00 00:00:00 [id number] [facility] 2012-03-16 2012-03-16 [facility] [id number] Univers 00:00:00 00:00:00 [id number] ity of [facility] 2012-03-01 2012-03-01 Outpatient Maurizio SUZIE ALSENA VLS [id number] Univers 00:01:00 23:59:00 ANISH 4 ity of [facility] 2012-02-24 2012-02-24 [facility] [id number] Univers 00:00:00 15:33:17 2 ity of [facility] 2012-02-08 2012-02-08 [facility] [id number] -[id number] Univers 00:00:00 00:00:00 [id number] ity of [facility] 2012-01-25 2012-01-25 [facility]patient [facility] [id number] Univers 00:00:00 14:13:03 6 ity of [facility] 2012-01-25 2012-01-25 [facility]patient [facility] [id number] Univers 00:00:00 11:19:34 5 ity of [facility] 2012-01-18 2012-01-18 Outpatient [facility] [id number] Univers 00:00:00 11:50:54 6 ity of [facility] 2012-01-11 2012-01-11 [place] [id number] Univers 00:00:00 00:00:00 [id number] ity of [facility] 2011-11-30 2011-11-30 [facility]patient [facility] [id number] Univers 00:00:00 11:25:58 1 ity of [facility] 2011-10-21 2011-10-21 [place] [id number] Univers 00:00:00 00:00:00 [id number] ity of [facility] 2011-10-19 2011-10-19 [facility]patient [facility] [id number] Univers 00:00:00 09:15:16 2 ity of [facility] 2011-10-05 2011-10-05 Outpatient Maurizio LARSEN ALSENA VLS [id number] Univers 00:01:00 23:59:00 ANISH 3 ity of [facility] 2011-09-28 2011-09-28 [facility] [id number] Univers 00:00:00 12:16:31 3 ity of [facility] 2011-08-31 2011-08-31 Outpatient [facility] [id number] Univers 00:00:00 08:43:40 6 ity [facility] 2011-08-31 2011-08-31 Outpatient [facility] [id number] Univers 00:00:00 00:00:00 [id number] ity [facility] 2011-07-28 2011-07-28 Outpatient [facility] [id number] Univers 00:00:00 00:00:00 [id number] ity [facility] 2011-07-23 2011-07-23 Outpatient [facility] [id number] -[id number] Univers 00:00:00 00:00:00 [id number] ity [facility] 2011-07-15 2011-07-15 Outpatient [facility] [id number] Univers 00:00:00 16:22:15 1 [facility] 2011-07-15 2011-07-15 Outpatient [facility] [id number] Univers 00:00:00 11:44:12 7 [facility] 2011-06-29 2011-06-29 Outpatient [facility] [id number] Univers 00:00:00 10:36:17 7 ity [facility] 2011-06-24 2011-06-25 Outpatient [facility] [id number] Univers 00:00:00 09:09:49 7 [facility] 2011-06-19 2011-06-22 Outpatient [facility] [id number] Univers 00:00:00 05:50:25 4 [facility] Results Test Description Test Time Test Comments Results Result Comments Source TISSUE EXAM 2019-04-07 Surgical Pathology 20:26:00 Report Case: [id number] Authorizing Provider: Jose E Victoria MD Collected: 03/29/2019 0816 Ordering Location: [facility] PERI[facility] Received: 03/29/2019 1039 SERVICES Pathologist: Ronny Landrum MD Specimen: Explant, old intrathecal pump NEUROSURGICAL HARDWARE, REMOVAL:INTRATHECAL PUMP DEVICE (GROSS EXAMINATION ONLY)CG/pl Signing Pathologist Direct Phone Line: [phone] ically signed by Ronny Landrum MD on 04/07/2019 at 8:26 [id number] and postop diagnosis: Chronic pain syndromeExplant, old intrathecal pumpReceived in formalin labeled with the patient's name, accession number and "explant" is a Medtronic synchromed II programmable pump measuring 8.5 x 7.2 x 1.5 cm. Attached to the pump is a 21.5 cm in length x 0.1 cm in diameter catheter. Also received in the same container is a second catheter measuring 63 cm in length and 0.1 cm in diameter. The pump is inscribed with "8637-20 SN [id number] [employer] [facility]". A gross photograph is taken. No sections are submitted - gross only. CG/pl URINALYSIS W/ REFLEX URINE CULTURE 2019-03-23 15:10:00 Test Item Value Reference Range Interpretation Comme nts COLOR (BEAKER) (test code = 470) Yellow CLARITY (BEAKER) (test code = 469) Clear SPECIFIC GRAVITY UA (BEAKER) (test code = 468) 1.030 1.001-1 .035 PH UA (BEAKER) (test code = 467) 5.5 5.0-8.0 PROTEIN UA (BEAKER) (test code = 464) 10 mg/dL Negative A GLUCOSE UA (BEAKER) (test code = 365) Negative Negative KETONES UA (BEAKER) (test code = 371) Negative Negative BILIRUBIN UA (BEAKER) (test code = 462) Negative Negative BLOOD UA (BEAKER) (test code = 461) Small Negative A NITRITE UA (BEAKER) (test code = 465) Negative Negative LEUKOCYTE ESTERASE UA (BEAKER) (test code = 466) Negative Negat koko UROBILINOGEN UA (BEAKER) (test code = 463) 0.2 mg/dL 0.2-1.0 RBC UA (BEAKER) (test code = 519) 1 /HPF WBC UA (BEAKER) (test code = 520) 1 /HPF MUCUS (BEAKER) (test code = 1574) Occasional SQUAMOUS EPITHELIAL (BEAKER) (test code = 516) 2 /HPF SOURCE(BEAKER) (test code = 2795) [employer] ID - [auto][employer] ID - techBASIC METABOLIC [id number] 15:10:00 Test Item Value Reference Range Interpretation Comments SODIUM (BEAKER) 142 meq/L 136-145 (test code = 381) POTASSIUM (BEAKER) 3.9 meq/L 3.5-5.1 (test code = 379) CHLORIDE (BEAKER) 105 meq/L 98-107 (test code = 382) CO2 (BEAKER) (test 29 meq/L 22-29 code = 355) BLOOD UREA NITROGEN 20 mg/dL 7-21 (BEAKER) (test code = 354) CREATININE (BEAKER) 0.97 mg/dL 0.57-1.25 (test code = 358) GLUCOSE RANDOM 95 mg/dL 70-105 (BEAKER) (test code = 652) CALCIUM (BEAKER) 9.9 mg/dL 8.4-10.2 (test code = 697) EGFR (BEAKER) (test 60 mL/min/1.73 ESTIMA ENID GFR IS code = 1092) sq m NOT ACCURATE CREATININE CLEARANCE IN PREDICTING GLOMERULAR FILTRATION RATE . ESTIMATED GFR I S NOT APPLICABLE FOR DIALYSIS PATIEN TS. [employer] Reverser ID - LAPROTHROMBIN TIME/[id number] 15:03:00 Test Item Value Reference Range Interpretation Comments PROTIME (BEAKER) (test code = 12.6 seconds 11.9-14.2 759) INR (BEAKER) (test code = 370) 1.0 <=5.9 Effective 07/06/2018: PT Reference Range ChangeNew: 11.9-14.2 Previous: 11.7- 14.7RECOMMENDED COUMADIN/WARFARIN INR THERAPY RANGESSTANDARD DOSE: 2.0-3.0 Includes: PROPHYLAXIS for venous thrombosis, systemic embolization; TREATMENT for venous thrombosis and/or pulmonary embolus.HIGH RISK: Target INR is2.5-3.5 for patients wiht mechanical heart valves.[id number] 15:03:00 Test Item Value Reference Range Interpretation Comments PARTIAL THROMBOPLASTIN TIME 29.5 seconds 22.5-36.0 (BEAKER) (test code = 760) RAD, CHEST, 2 [id number] 14:56:00Reason for exam:->Malfunction of intrathecal infusion pump, initial encounter, Chronic pain disorderFINAL REPORT INDICATION: Malfunction of intrathecal infusion pump, initial encounter, Chronic pain disorder COMPARISON: None. TECHNIQUE: Chest radiograph, two views, PA and lateral. FINDINGS / IMPRESSION:Lung volumes are normal and no pneumonia or pulmonary edema is demonstrated. Cardiac and mediastinal contours normal. No pneumothorax or pleural effusion. Osseous structures unremarkable. No intrathecal device is demonstrated. Signed: Jeremy Sinclair MDReport Verified Date/Time: 03/23/2019 14:56:24 Reading Location: [facility] Mammo Reading Room CBC W/PLT COUNT & AUTO [id number] 14:53:00 Test Item Value Reference Range Interpretation Comments WHITE BLOOD CELL COUNT (BEAKER) 4.6 K/ L 3.5-10.5 (test code = 775) RED BLOOD CELL COUNT (BEAKER) 4.67 M/ L 3.93-5.22 (test code = 761) HEMOGLOBIN (BEAKER) (test code = 13.9 GM/DL 11.2-15.7 410) HEMATOCRIT (BEAKER) (test code = 43.1 % 34.1-44.9 411) MEAN CORPUSCULAR VOLUME (BEAKER) 92.3 fL 79.4-94.8 (test code = 753) MEAN CORPUSCULAR HEMOGLOBIN 29.8 pg 25.6-32.2 (BEAKER) (test code = 751) MEAN CORPUSCULAR HEMOGLOBIN CONC 32.3 GM/DL 32.2-35.5 (BEAKER) (test code = 752) RED CELL DISTRIBUTION WIDTH 12.7 % 11.7-14.4 (BEAKER) (test code = 412) PLATELET COUNT (BEAKER) (test 201 K/CU MM 150-450 code = 756) MEAN PLATELET VOLUME (BEAKER) 10.6 fL 9.4-12.3 (test code = 754) NUCLEATED RED BLOOD CELLS 0 /100 WBC 0-0 (BEAKER) (test code = 413) NEUTROPHILS RELATIVE PERCENT 50 % (BEAKER) (test code = 429) LYMPHOCYTES RELATIVE PERCENT 40 % (BEAKER) (test code = 430) MONOCYTES RELATIVE PERCENT 7 % (BEAKER) (test code = 431) EOSINOPHILS RELATIVE PERCENT 3 % (BEAKER) (test code = 432) BASOPHILS RELATIVE PERCENT 1 % (BEAKER) (test code = 437) NEUTROPHILS ABSOLUTE COUNT 2.26 K/ L 1.56-6.13 (BEAKER) (test code = 670) LYMPHOCYTES ABSOLUTE COUNT 1.80 K/ L 1.18-3.74 (BEAKER) (test code = 414) MONOCYTES ABSOLUTE COUNT (BEAKER) 0.30 K/ L 0.24-0.36 (test code = 415) EOSINOPHILS ABSOLUTE COUNT 0.15 K/ L 0.04-0.36 (BEAKER) (test code = 416) BASOPHILS ABSOLUTE COUNT (BEAKER) 0.03 K/ L 0.01-0.08 (test code = 417) IMMATURE GRANULOCYTES-RELATIVE 0 % 0-1 PERCENT (BEAKER) (test code = 280)
[2021-02-04 15:35] LABS: SARS-COV-2 RT PCR POSITIVE (NEGATIVE)
--- NOTE | 2021-02-04 15:44 | ER ---
Nurse's Notes [facility] Name: Susan Bolivar Age: 55 yrs Sex: Female : 1965 Arrival Date: 02/04/2021 Time: 12:40 Bed Waiting Private MD: Diagnosis: Coronavirus infection, unspecified Presentation: 02/04 13:53 Chief complaint: Patient states: body aches and fever since yesterday. Coronavirus [facility] screen: Vaccine status: Patient reports receiving the 2nd dose of the covid vaccine. Client denies travel out of the [place] in the last 14 days. Ebola Screen: Patient negative for fever greater than or equal to 101.5 degrees Fahrenheit, and additional compatible Ebola Virus Disease symptoms Patient denies exposure to infectious person. Patient denies travel to an Ebola-affected area in the 21 days before illness onset. Initial Sepsis Screen: Does the patient meet any 2 criteria? No. Patient's initial sepsis screen is negative. Does the patient have a suspected source of infection? No. Patient's initial sepsis screen is negative. Risk Assessment: Do you want to hurt yourself or someone else? Patient reports no desire to harm self or others. Onset of symptoms. 13:53 Method Of Arrival: Ambulatory [facility] 13:53 Acuity: TYRONE 3 jh5 Triage Assessment: 13:55 General: Appears in no apparent distress. well groomed, well developed, well nourished, [facility] Behavior is calm, cooperative, appropriate for age. Pain: Denies pain. Historical: - Allergies: 13:55 Morphine; [facility] 13:55 Flexeril; [facility] - PMHx: 13:55 Chronic pain; [facility] - Immunization history:: Adult Immunizations up to date. - Social history:: Smoking status: Patient reports the use of cigarette tobacco products, smokes one-half pack cigarettes per day. Screenin:56 Abuse screen: Denies threats or abuse. Denies injuries from another. Nutritional [facility] screening: No deficits noted. Tuberculosis screening: No symptoms or risk factors identified. Vital Signs: 13:53 BP 118 / 86; Pulse 67; Resp 16; Temp 97.1; Pulse Ox 97% ; Weight 90.72 kg; Height [address] [facility] 4 in. (162.56 cm); 13:53 Body Mass Index 34.33 (90.72 kg, 162.56 cm) 5 ED Course: 12:40 Patient arrived in ED. ds1 13:55 Triage completed. 5 13:55 Lena Salamanca FNP-C is PSYCHIATRICP. kb 13:55 Derek Hoyos MD is Attending Physician. kb 13:56 Arm band placed on right wrist. jh5 Administered Medications: No medications were administered Outcome: 15:43 Discharge ordered by MD. kb 16:16 Patient left the ED. kb Signatures: Lena Salamanca FNP-C FNP-Shannan Alarcon ds1 Liliana Mcdermott, RN RN 5
--- NOTE | 2021-02-04 15:44 | EDPHYS ---
Physician Documentation [facility] Name: Susan Bolivar Age: 55 yrs Sex: Female : 1965 Arrival Date: 02/04/2021 Time: 12:40 Bed Waiting Private MD: ED Physician Derek Hoyos HPI: 02/04 16:15 This 55 yrs old Unknown Female presents to ER via Ambulatory with complaints of Body kb Aches. 16:16 The patient or guardian reports flu symptoms, myalgias. Onset: The symptoms/episode kb began/occurred yesterday. Severity of symptoms: At their worst the symptoms were mild, moderate, in the emergency department the symptoms are unchanged. Modifying factors: The symptoms are alleviated by nothing, the symptoms are aggravated by nothing. Associated signs and symptoms: The patient has no apparent associated signs or symptoms. The patient has not experienced similar symptoms in the past. The patient has not recently seen a physician. Pt reports bodyaches and headache since yesterday. Historical: - Allergies: 13:55 Morphine; jh5 13:55 Flexeril; jh5 - PMHx: 13:55 Chronic pain; jh5 - Immunization history:: Adult Immunizations up to date. - Social history:: Smoking status: Patient reports the use of cigarette tobacco products, smokes one-half pack cigarettes per day. ROS: 16:15 Respiratory: Negative for shortness of breath, cough, wheezing, and pleuritic chest kb pain. 16:15 Constitutional: Positive for body aches, Negative for chills, fatigue, fever, malaise, poor PO intake, weight loss. 16:15 Neuro: Positive for headache. 16:15 All other systems are negative. Exam: 16:15 Constitutional: This is a well developed, well nourished patient who is awake, alert, kb and in no acute distress. Head/Face: Normocephalic, atraumatic. ENT: Moist Mucous membranes Cardiovascular: Regular rate and rhythm with a normal S1 and S2. No gallops, murmurs, or rubs. No pulse deficits. Respiratory: Respirations even and unlabored. No increased work of breathing. Talking in full sentences Skin: Warm, dry with normal turgor. Normal color. MS/ Extremity: Pulses equal, no cyanosis. Neurovascular intact. Full, normal range of motion. Neuro: Awake and alert, GCS 15, oriented to person, place, time, and situation. Moves all extremities. Normal gait. Psych: Awake, alert, with orientation to person, place and time. Behavior, mood, and affect are within normal limits. Vital Signs: 13:53 BP 118 / 86; Pulse 67; Resp 16; Temp 97.1; Pulse Ox 97% ; Weight 90.72 kg; Height 5 ft. 5 4 in. (162.56 cm); 13:53 Body Mass Index 34.33 (90.72 kg, 162.56 cm) 5 MDM: 13:55 Patient medically screened. kb 16:15 Data reviewed: vital signs, nurses notes. Data interpreted: Pulse oximetry: on room air kb is 97 %. Interpretation: normal. Counseling: I had a detailed discussion with the patient and/or guardian regarding: the historical points, exam findings, and any diagnostic results supporting the discharge/admit diagnosis, lab results, the need for outpatient follow up, a family practitioner, to return to the emergency department if symptoms worsen or persist or if there are any questions or concerns that arise at home. 02/04 13:56 Order name: COVID-19/FLU A+B (Document "Date of Onset" if Symptomatic); Complete Time: kb 15:43 Administered Medications: No medications were administered Disposition: 17:22 Co-signature as Attending Physician, Derek Hoyos MD I agree with the assessment and kdr plan of care. Disposition Summary: 02/04/21 15:43 Discharge Ordered Location: Home kb Condition: Stable kb Diagnosis - Coronavirus infection, unspecified kb Followup: kb - With: Emergency Department - When: As needed - Reason: Worsening of condition Followup: kb - With: Private Physician - When: 2 - 3 days - Reason: Recheck today's complaints, Continuance of care, Re-evaluation by your physician Discharge Instructions: - Discharge Summary Sheet kb - Viral Respiratory Infection, [id number] kb - COVID-19 kb Forms: - Medication Reconciliation Form kb - Thank You Letter kb - Antibiotic Education kb - Prescription Opioid Use kb Signatures: Dispatcher [employer] EDMS Lena Salamanca, KARINC Derek Bright MD MD kdr Rees, Jessica, RN RN 5
[2021-02-04 16:20] VITALS: BP 118/86; TEMP 97.1; O2SAT 97
== END 2021-02-04 16:16 | disposition home or self-care (01) ==
LOC: ER 12:23
DX: U07.1 COVID-19 (principal)
CPT/HCPCS: 0240U; 99281

== ENCOUNTER 2021-05-28 07:51 | Emergency (ER) | payer OTHER ==
--- OUTSIDE RECORDS SUMMARY | 2021-05-28 07:55 | XMS REPORT | Continuity of Care Document ---
:1965 Author Organization [facility] t Address [address] [place] [address] Care Team Providers Name Role Phone [facility] Primary Care Physician Unavailable KENNA PIERSON Attending Clinician Unavailable Daysi SAHU, K.H. Attending Clinician DAYSI K.HJose Attending Clinician Unavailable KENNA Attending Clinician Unavailable CATALINA Attending Clinician Unavailable CATALINA Attending Clinician Unavailable Catalina SAHU Attending Clinician KENNA PIERSON Admitting Clinician Unavailable CATALINA Admitting Clinician Unavailable Payers Payer Name Policy Type Policy Number Effective Date Expiration Date Feng magallon [facility] [id number] 2021 PLAN 00:00:00 [facility] [id number] [facility] Problems Condition Condition Condition Status Onset Resolution Last Treating Co mments Source Name Details Category Date Date Treatment Clinician Date Chronic Chronic Disease Active Univers pain pain 2-19 ity of disorder disorder 00:00: [place] [id number] Medical Branch Malfunctio Malfunctio Disease Active B ayrafa n of n of 2-14 College intratheca intratheca 00:00: of l infusion l infusion 00 Me dicin pump pump e Asthma Asthma Disease Active 2015-02 Univers exacerbati exacerbati 2-19 it y of [place] Finger Finger Disease Active 2011-02 Univers infection infection 2-17 ity of 00:00: [address] Branch Carpal Carpal Disease Active 2011-02 Univers tunnel tunnel 2-17 ity of syndrome syndrome 00:00: Medical Branch Finger Finger Disease Active Univers stiffness stiffness 5-23 ity of 00:00: Medical Branch Edema Edema Disease Active Univers extremitie extremitie - it y of s s 00:00: Medical [...] ents Source Name Type Date Date Clinician BLACK Allergy Active [facility] PEPPER 2-13 00:00: 00 CYCLOBEN Allergy Active [facility] ZAPRINE 2-13 00:00: 00 MORPHINE Allergy Active [facility] 2-13 00:00: 00 Hydromor Propensi [facility] -24 ity of adverse 00:00: [place] reaction 00 Medical s Branch HYDROMOR DRUG Active ITCHING [facility] PHONE INGREDI -24 ity of 00:00: Medical Branch Cycloben Propensi Active Rash [facility] zaprine ty to 06-16 [place] adverse 00:00: of reaction 00 Medicin s to e drug Morphine Propensi Active Itching Exacerbat Ba ylor ty to 06-16 [facility] adverse 00:00: asthmaPat of reaction 00 ient Medicin s to states e drug she has severe itching and triggers off asthma Cycloben Propensi Active Rash Raised Univer s zaprine ty to 06-16 rash ity of adverse 00:00: [place] reaction 00 Medical s Branch Cycloben Propensi Active Rash Univer s zaprine ty to 06-16 ity of Hcl adverse 00:00: [place] reaction 00 Medical s Branch Morphine Propensi Active Itching Patient Univ ers ty to 06-16 states ity of adverse 00:00: she has [place] reaction 00 severe Medical s itching Branch and triggers off asthma Exacerbat es asthmaPat ient states she has severe itching and triggers off asthmaSev er itching and breathing Exacerbat es asthma MORPHINE DRUG Active High ITCHING Univers INGREDI 06-16 ity of 00:00: [place] 00 Medical Branch CYCLOBEN DRUG Active Rash Univers ZAPRINE INGREDI 06-16 ity of HCL 00:00: Medical Branch CYCLOBEN DRUG Active Low Rash Univers ZAPRINE INGREDI 06-16 ity of 00:00: [place] 00 Medical Branch cycloben Adverse Active Info Not [facility] zap[facility] Reaction Available [facility] ent Clinics MORPHINE Adverse Active Info Not [facility] Reaction Available [facility] ent Clinics Social History Social Habit Start Date Stop Date Quantity Comments Source History of tobacco Cigarette Smoker University of use [facility] Exposure to Not sure [place] of SARS-CoV-2 (event) [facility] Sex Assigned At [facility] Co llege of Medicine Cigarettes smoked 2019-03-20 2019-03-20 [facility] of current (pack per 00:00:00 00:00:00 Medicin e day) - Reported Cigarette 2019-03-20 2019-03-20 [facility] of pack-years 00:00:00 00:00:00 Medicine Alcohol intake 2019-03-20 2019-03-20 Current drinker [facility] of 00:00:00 00:00:00 of alcohol Medicine (finding) Tobacco Comment 2016-01-27 2016-01-27 0.5 PPD Universit y of 00:00:00 00:00:00 [facility] Smoking Status Start Date Stop Date Source Current every day smoker 2020-08-05 00:00:00 Uni versity [facility] Medications Ordered Filled Start Stop Current Ordering Indication Dosage Frequency Signature Comments Components Source Medication Medication Date Date Medication? Clinician (SIG) Name Name dexlansopra Yes 60mg Take 60 mg Univers zole 4-04 by mouth. ity of (DEXILANT 11:16: [place] ORAL) 29 Medical Branch diltiazem Yes [id number] 120mg Take 1 U nivers 120 mg 24 4-04 capsule by ity of hr capsule 00:00: mouth [place] 00 daily. Medical Branch diltiazem 0 2021- No 120mg Take 120 Un teresa 120 mg 24 3-15 04-04 mg by ity of hr capsule 00:00: 00:00 mouth [place] 00 :00 daily. Medical Branch pantoprazol Yes 40mg Take 40 mg Univers e 40 mg EC 6-23 by mouth ity o f tablet 00:00: daily. Medical Branch liothyronin Yes 5ug Take 5 mcg Univers e 5 mcg 6-18 by mouth ity of tablet 00:00: every 00 morning. Medical Branch LIALDA 1.2 Yes 2.4g Take 2.4 g U nivers gram EC 6-12 by mouth ity of tablet 00:00: daily. Medical Branch levothyroxi Yes 50ug Take 50 Uni vers ne 50 mcg 6-11 mcg by ity of tablet 00:00: mouth 00 every Medical morning. Branch famotidine Yes 40mg Take 40 mg U nivers 40 mg 6-10 by mouth ity of tablet 00:00: once now. Medical Branch progesteron Yes 200mg Take 200 U nivers e 200 mg 5-11 mg by ity of capsule 00:00[place] 00 now. Medical Branch albuterol-i 2019-02 Yes 1{puff} Inhale 1 Univers pratropium 1-17 Puff 4 ity of (COMBIVENT 11:40: (four) [place] RESPIMAT) 53 times Medical 20-100 daily. Branch mcg/actuati on inhaler oxycodone Yes 30mg Take 30 mg Ba ylor (OXY-IR) 30 2-10 by mouth Jose ege MG 20:41: every 8 of immediate 56 hours. Medicin release e tablet COMBIVENT Yes 1{puff} 1 Puff [place] rafa RESPIMAT 1-15 every 6 College 20-100 00:00: hours. of MCG/ACT 00 Medicin AERS e Fentanyl Fentanyl Yes Rommel as [facility] Citrate-NaC Citrate-NaC 8-28 [place] directed [facility] fluticasone 2017 Yes 1{puff} 1 Puff two [facility] -salmeterol 2-08 times College (ADVAIR 00:00: daily. of DISKUS) 00 Medicin 250-50 e MCG/DOSE inhaler Fluticasone 2016- Yes [id number] 1{puff} Inhale 1 Univers -Salmeterol 2-20 Puff 2 ity of (ADVAIR) 00:00: (two) [place] 100-50 00 times Medical mcg/dose daily. Branch inhalation disk Tizanidine Tizanidine Yes Rommel TAKE 1 [facility] [...] Immunizations Ordered Filled Immunization Date Status Comments [facility] e Immunization Name Name SARS-COV-2 COVID-19 2020-05-16 Completed Unive rsity of PFIZER VACCINE 00:00:00 [facility] SARS-COV-2 COVID-19 2020-04-25 Completed Unive rsity of PFIZER VACCINE 00:00:00 [facility] Vital Signs Vital Name Observation Time Observation Value Comments Source Systolic blood 2021-05-12 16:18:00 138 mm[Hg] Univer sity of pressure [facility] Diastolic blood 2021-05-12 16:18:00 89 mm[Hg] Unive rsity of pressure [facility] Heart rate 2021-05-12 16:12:00 75 /min Universi ty of [facility] Body height 2021-05-12 16:12:00 162.6 cm Universi ty [facility] Body weight 2021-05-12 16:12:00 94.972 kg Universi ty [facility] BMI 2021-05-12 16:12:00 35.94 kg/m2 Universi ty [facility] Oxygen saturation in 2021-05-12 16:12:00 97 /min University of Arterial blood by [facility] Pulse oximetry Branch Systolic blood 2019-03-20 20:41:00 134 mm[Hg] [facility] pressure Medicine Diastolic blood 2019-03-20 20:41:00 81 mm[Hg] [facility] Medicine Heart rate 2019-03-20 20:41:00 97 /min [facility] Respiratory rate 2019-03-20 20:41:00 16 /min [facility] Body height 2019-03-20 20:41:00 160 cm [facility] Body weight 2019-03-20 20:41:00 86.183 kg [facility] BMI 2019-03-20 20:41:00 33.66 kg/m2 [facility] Oxygen saturation in 2019-03-20 20:41:00 100 /min [facility] Arterial blood by Medicine Pulse oximetry Systolic blood 2019-03-20 20:41:00 134 mm[Hg] [facility] pressure Medicine Diastolic blood 2019-03-20 20:41:00 81 mm[Hg] [facility] Medicine Heart rate 2019-03-20 20:41:00 97 /min [facility] Respiratory rate 2019-03-20 20:41:00 16 /min [facility] Body height 2019-03-20 20:41:00 160 cm [facility] Body weight 2019-03-20 20:41:00 86.183 kg [facility] BMI 2019-03-20 20:41:00 33.66 kg/m2 [facility] Oxygen saturation in 2019-03-20 20:41:00 100 /min [facility] Arterial blood by [facility] Pulse oximetry Procedures This patient has no known procedures. Plan of Care Planned Activity Planned Date Details Comments Source Future Scheduled Test COLON CANCER SCREENING: [facility] COLONOSCOPY [code = Medicine COLON CANCER SCREENING: COLONOSCOPY] Future Scheduled Test MAMMOGRAM ANNUAL [code [facility] = MAMMOGRAM ANNUAL] Medicine Future Scheduled Test TETANUS SHOT (ADULT) [facility] [code = TETANUS SHOT Medicin e (ADULT)] Future Scheduled Test BMI FOLLOW UP PLAN [facility] [code = BMI FOLLOW UP Medici ne PLAN] Future Scheduled Test HIV SCREENING [code = [facility] HIV SCREENING] Medicine Future Scheduled Test CERVICAL CANCER [facility] SCREENING 3 YEAR FOLLOW Medi cine UP [code = CERVICAL CANCER SCREENING 3 YEAR FOLLOW UP] Future Scheduled Test FLU VACCINE > 6 MONTHS [facility] [code = FLU VACCINE > 6 Medi cine MONTHS] Encounters Start End Encounter Admission Attending Care Care Encounter Source Date/Time Date/Time Type Type Clinicians Facility Department ID 2021-04-03 Outpatient CLAUDIA PIERSON Surgery [id number] [facility] 08:28:30 PATRICIA 2021-05-12 2021-05-12 Office Daysi HISENA [id number] Univers 11:00:00 11:37:52 Visit Nehemiah GIRON [id number] suzette [facility] [id number] Michell YE [id number] [place] [address] 2021-05-12 2021-05-12 Outpatient R DAYSI HISENA [facility] [id number] [facility] 11:00:00 11:37:52 [place] itcarmella [facility] 2021-04-02 2021-05-07 Outpatient LINH PIERSON [facility] [id number] [facility] 08:52:07 19:53:16 PATRICIA [facility] of Medicin e 2021-04-02 2021-04-02 Outpatient LINH PIERSON [facility] [id number] [facility] 09:33:13 09:35:56 PATRICIA Kaur lynnette of Medicin e 2019-03-20 2019-03-20 Office [facility] [id number] [facility] 13:40:26 14:26:59 Visit , SAYRA AMBULATOR [id number] College Y [id number] of [id number] [facility] dorothy 300 e 2019-03-20 2019-03-20 Office [facility] [id number] 13:40:26 14:26:59 Visit , Sayra AMBULATOR [id number] Y [id number] 2018-03-28 2018-03-28 [facility] [id number] [facility] [address] 14:30:00 14:30:00 [facility] 2018-03-01 2018-03-01 [facility] [id number] [address] 09:34:00 09:34:00 [facility] 2018-02-02 2018-02-02 [facility] [id number] 08:46:00 08:46:00 t [facility] ent Clinics 2018-01-25 2018-01-25 [facility] [id number] 13:30:00 13:30:00 t [facility] 2017-11-11 2017-11-11 [facility] [id number] 11:00:00 11:00:00 t [facility] 2017-10-28 2017-10-28 [facility] [id number] 10:30:00 10:30:00 t [facility] Clinics Results Test Description Test Time Test Comments Results Result Comments Source TISSUE EXAM 2019-04-07 Surgical Pathology 20:26:00 Report Case: [id number] Authorizing Provider: Sayra Victoria MD Collected: 03/29/2019 0816 Ordering Location: [facility] PERIOPERATIVE Received: 03/29/2019 1039 SERVICES Pathologist: Ronny Landrum MD Specimen: Explant, old intrathecal pump NEUROSURGICAL HARDWARE, REMOVAL:INTRATHECAL PUMP DEVICE (GROSS EXAMINATION ONLY)CG/pl Signing Pathologist Direct Phone Line: [phone] icall signed by Ronny Landrum MD on 04/07/2019 at 8:26 [id number] and postop diagnosis: Chronic pain syndromeExplant, old [...] The pump is inscribed with "8637-20 SN [id number] [employer], [place]. [facility]". A gross photograph is taken. No sections [...] 2 /HPF SOURCE(BEAKER) (test code = 2795) Rent And Miscellaneous Remittance Clerk ID - [auto]Rent And Miscellaneous Remittance Clerk ID - techBASIC METABOLIC [id number] 15:10:00 Test Item Value Reference Range Interpretation [...] S NOT APPLICABLE FOR DIALYSIS PATIEN TS. Rent And Miscellaneous Remittance Clerk ID - LAPROTHROMBIN TIME/[id number] 15:03:00 Test Item Value Reference Range Interpretation [...] INR is2.5-3.5 for patients wiht mechanical heart valves.[id number] 15:03:00 Test Item Value Reference Range Interpretation Comments PARTIAL THROMBOPLASTIN TIME 29.5 seconds 22.5-36.0 (BEAKER) (test code = 760) RAD, CHEST, 2 [id number] 14:56:00Reason for exam:->Malfunction of intrathecal infusion pump, [...] No intrathecal device is demonstrated. Signed: Jeremy Boyd MDReport Verified Date/Time: 03/23/2019 14:56:24 Reading Location: [facility] Mammo Reading Room CBC W/PLT COUNT & AUTO [id number] 14:53:00 Test Item Value Reference Range Interpretation [...] % 0-1 PERCENT (BEAKER) (test code = 6781)
[2021-05-28] MEDS ORDERED: LIDOCAINE VISCOUS 2% SOLN 15 ML UDC ONE (08:27)
[2021-05-28] MEDS ORDERED: FAMOTIDINE 20 MG/2 ML VIAL IV ONE (08:27)
[2021-05-28] MEDS ORDERED: MAGNES/ALUMIN/SIMET 30ML UCUP ONE (08:27)
[2021-05-28 08:35] LABS: Absolute Lymphocytes (CBC) 1.5 K/uL (0.7-4.9); Hematocrit 42.2 % (36.0-45.0); Lymphocytes % 21.3 % (15.3-44.8); MPV 8.9 fL (7.6-11.3); RBC Red Blood Cell Count 4.69 M/uL (3.86-4.86)
[2021-05-28 08:52] LABS: Albumin 3.8 g/dL (3.4-5.0); Bilirubin Total 0.3 mg/dL (0.2-1.0); Potassium 3.9 mmol/L (3.5-5.1); Protein, Total 7.5 g/dL (6.4-8.2)
[2021-05-28] MEDS ORDERED: FENTANYL CITR 100 MCG/2 ML ONE (09:18)
[2021-05-28] MEDS ORDERED: ONDANSETRON 4 MG/2 ML VIAL ONE ×2 (09:18→10:32)
--- NOTE | 2021-05-28 09:54 | RAD REPORT ---
EXAM DESCRIPTION: CTAbdomen Pelvis W Contrast - 05/28/2021 9:33 am CLINICAL HISTORY: Abdominal pain, acute, nonlocalized COMPARISON: No comparisons TECHNIQUE: CT of the abdomen and pelvis was performed. All CT scans are performed using dose optimization technique as appropriate and may include automated exposure control or mA/KV adjustment according to patient size. FINDINGS: Lower chest: No acute process. Liver: Low-density liver lesions have benign imaging features. Biliary: No biliary ductal dilatation. Stomach: No significant focal abnormality. Duodenum: Duodenum diverticulum. Pancreas: No significant abnormality. Spleen: No significant abnormality. Adrenal: No suspicious lesions. Kidney/ureter: No hydronephrosis. No renal calculi. Left renal cyst Retroperitoneum: No retroperitoneal adenopathy. Vascular: No aneurysm. Bowel: Normal appendix. Segmental wall thickening in the right lower quadrant with proximal small bow el distension. There is a transition to in decompressed distal ileum. Mesenteric edema is present. Peritoneum: Small volume of free fluid. Bladder: Grossly unremarkable. Reproductive: No adnexal masses. Bones: No acute fracture. Small sclerotic focus in the left femoral neck is likely a bone island. Dis c height loss L5-S1 . Other: n/a IMPRESSION: Moderate length segment of small bowel wall thickening within the right lower quadrant c oncerning for an enteritis. The small bowel proximal to this segment is distended but not, strictly s peaking, dilated to confirm the presence of a bowel obstruction. The differential of an enteritis wou ld include infectious, inflammatory, as well as ischemic etiologies.
[2021-05-28] MEDS ORDERED: CIPROFLOXACIN HCL 500 MG TAB ONE (10:31)
[2021-05-28] MEDS ORDERED: metroNIDAZOLE 500 MG TABLET ONE (10:31)
[2021-05-28] MEDS ORDERED: HYDROMORPHONE HCL 1 MG/ML INJ ONE (10:32)
--- NOTE | 2021-05-28 11:09 | EDPHYS ---
Physician Documentation [facility] Name: Susan Bolivar Age: 55 yrs Sex: Female : 1965 Arrival Date: 05/28/2021 Time: 07:52 Bed 15 Private MD: ED Physician Mohsen Bray HPI: 05/28 08:21 This 55 yrs old Female presents to ER via Ambulatory with complaints of Epigastric Pain.la1 08:21 The patient presents with abdominal pain in the epigastric area. Onset: The la1 symptoms/episode began/occurred last night. The symptoms do not radiate. Associated signs and symptoms: Pertinent negatives: blood in stools, nausea, vomiting, vomiting blood. The symptoms are described as sharp. Modifying factors: the symptoms are aggravated by food. Severity of pain: At its worst the pain was moderate just prior to arrival. The patient has experienced similar episodes in the past, chronically. Patient with chronic GERD, is pending EGD on the , reports she ate [employer] last night and began having severe epigastric pain, reports similar to previous episodes with GERD but unable to control pain. Reports she has previously had CT and ultrasound to evaluate gallbladder and other causes.. 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 - Social history:: Smoking status: Patient denies any tobacco usage or history of. ROS: 08:23 Constitutional: Negative for fever, chills, and weight loss, Eyes: Negative for injury, la1 pain, redness, and discharge, ENT: Negative for injury, pain, and discharge, Neck: Negative for injury, pain, and swelling, Cardiovascular: Negative for chest pain, palpitations, and edema, Respiratory: Negative for shortness of breath, cough, wheezing, and pleuritic chest pain. 08:23 Back: Negative for injury and pain, MS/Extremity: Negative for injury and deformity, Skin: Negative for injury, rash, and discoloration. 08:23 Abdomen/GI: Positive for abdominal pain, nausea, Negative for constipation, hematemesis, black/tarry stool, bowel incontinence. Exam: 08:23 Constitutional: This is a well developed, well nourished patient who is awake, alert, la1 and in no acute distress. Head/Face: Normocephalic, atraumatic. Eyes: Pupils equal round and reactive to light, extra-ocular motions intact. Chest/axilla: Normal chest wall appearance and motion. Nontender with no deformity. No lesions are appreciated. Cardiovascular: Regular rate and rhythm with a normal S1 and S2. No gallops, murmurs, or rubs. Normal PMI, no JVD. No pulse deficits. Respiratory: Lungs have equal breath sounds bilaterally 08:23 Skin: Warm, dry with normal turgor. Normal color 08:23 Abdomen/GI: Inspection: abdomen appears normal, Bowel sounds: normal, in all quadrants, Palpation: mild abdominal tenderness, in the epigastric area, Indicators: McBurney's point is not tender, Mccain's sign is negative, Rovsing's sign is negative. Vital Signs: 08:12 BP 120 / 74; Pulse 74; Resp 16; Temp 97.1; Pulse Ox 100% on R/A; Weight 92.53 kg; iw Height 5 ft. 4 in. (162.56 cm) (R); 08:12 Body Mass Index 35.02 (92.53 kg, 162.56 cm) iw MDM: 08:26 Patient medically screened. la1 11:07 Data reviewed: vital signs, nurses notes, lab test result(s), radiologic studies, and la1 as a result, I will discharge patient. Data interpreted: Pulse oximetry: on room air is 100 %. Interpretation: normal. Counseling: I had a detailed discussion with the patient and/or guardian regarding: the historical points, exam findings, and any diagnostic results supporting the discharge/admit diagnosis, lab results, radiology results, the need for outpatient follow up, a family practitioner, to return to the emergency department if symptoms worsen or persist or if there are any questions or concerns that arise at home. Response to treatment: the patient's symptoms have markedly improved after treatment, and as a result, I will discharge patient. 05/28 08:11 Order name: CBC with Diff; Complete Time: 08:41 05/28 08:11 Order name: CMP; Complete Time: 08:57 iw 05/28 08:11 Order name: Lipase; Complete Time: 08:57 iw 04/20 09:11 Order name: CT Abd/Pelvis - IV Contrast Only; Complete Time: 09:58 la1 05/28 08:11 Order name: IV Saline Lock; Complete Time: 08:31 iw 05/28 08:11 Order name: Labs collected and sent; Complete Time: 08:31 iw Administered Medications: 08:28 Drug: Pepcid (famotidine) 20 mg Route: IVP; Site: right forearm; iw 10:36 Follow up: Response: No adverse reaction ap3 08:28 Drug: GI Cocktail without - (Maalox Suspension 30 ml, Lidocaine Liquid 2 % 15 iw ml) Route: PO; 10:36 Follow up: Response: No adverse reaction ap3 09:20 Drug: fentaNYL (PF) 50 mcg Route: IVP; Site: right forearm; ap3 10:35 Follow up: Response: No adverse reaction; Pain is unchanged, physician notified ap3 09:20 Drug: Zofran (Ondansetron) 4 mg Route: IVP; Site: right forearm; ap3 10:35 Follow up: Response: No adverse reaction ap3 10:35 Drug: Dilaudid (HYDROmorphone) 1 mg Route: IVP; Site: right forearm; ap3 11:24 Follow up: Response: No adverse reaction; Pain is decreased ap3 10:35 Drug: Zofran (Ondansetron) 4 mg Route: IVP; Site: right forearm; ap3 11:24 Follow up: Response: No adverse reaction ap3 10:35 Drug: Cipro (ciprofloxacin) 500 mg Route: PO; ap3 11:24 Follow up: Response: No adverse reaction ap3 10:35 Drug: Flagyl (metroNIDAZOLE) 500 mg Route: PO; ap3 11:24 Follow up: Response: No adverse reaction ap3 11:43 Drug: [place] (HYDROcodone-acetaminophen) (7.5 mg-325 mg) 1 tabs Route: PO; ap3 11:44 Follow up: Response: No adverse reaction ap3 Disposition Summary: 05/28/21 11:09 Discharge Ordered Location: Home la1 Problem: new la1 Symptoms: have improved la1 Condition: Stable la1 Diagnosis - Infectious gastroenteritis and colitis, unspecified la1 - Abdominal pain, Generalized la1 Followup: la1 - With: Private Physician - When: 2 - 3 days - Reason: Recheck today's complaints, Continuance of care, Re-evaluation by your physician Followup: la1 - With: Emergency Department - When: As needed - Reason: Worsening of condition Discharge Instructions: - Discharge Summary Sheet la1 - Abdominal Pain, Adult la1 - Viral Gastroenteritis, Adult, [id number] la1 - Abdominal Pain, Adult, [id number] la1 Forms: - Medication Reconciliation Form la1 - Thank You Letter la1 - Antibiotic Education la1 Prescriptions: - Flagyl 500 mg Oral Tablet - take 1 tablet by ORAL route every 8 hours for 7 days; 21 tablet; Refills: 0, la1 Product Selection Permitted - Cipro 500 mg Oral Tablet - take 1 tablet by ORAL route every 12 hours for 7 days; 14 tablet; Refills: 0, la1 Product Selection Permitted - dicyclomine 20 mg Oral Tablet - take 1 tablet by ORAL route 4 times per day; 20 tablet; Refills: 0, Product la1 Selection Permitted - Zofran 4 mg Oral Tablet - take 1 tablet by ORAL route 2-3 times daily; 10 tablet; Refills: 0, Product la1 Selection Permitted Addendum: 05/30/2021 07:46 Co-signature as Attending Physician, Moshen Bray MD I agree with the assessment and c sandoval plan of care. Signatures: Dispatcher [employer] Mohsen Siegel MD MD cha Williams, Irene, RN RN iw Kb Haque, CHILD CARE COORDINATOR-C CHILD CARE COORDINATOR-Cla1 Charlee Saldaña RN RN ap3
--- NOTE | 2021-05-28 11:09 | ER ---
Nurse's Notes [facility] Name: Susan Bolivar Age: 55 yrs Sex: Female : 1965 Arrival Date: 05/28/2021 Time: 07:52 Bed 15 Private MD: Diagnosis: Infectious gastroenteritis and colitis, unspecified;Abdominal pain, Generalized Presentation: 05/28 08:12 Chief complaint: Patient states: epigastric pain started last night "I think its my iw reflux but the pain is just too much". Coronavirus screen: Vaccine status: Patient reports receiving the 2nd dose of the covid vaccine. Ebola Screen: No symptoms or risks identified at this time. Initial Sepsis Screen: Does the patient meet any 2 criteria? No. Patient's initial sepsis screen is negative. Does the patient have a suspected source of infection? No. Patient's initial sepsis screen is negative. Risk Assessment: Do you want to hurt yourself or someone else? Patient reports no desire to harm self or others. Onset of symptoms was May 28, 2021. 08:12 Method Of Arrival: Ambulatory iw 08:12 Acuity: TYRONE 3 iw Triage Assessment: 10:46 General: Appears uncomfortable, Behavior is restless. Pain: Complains of pain in ap3 epigastric area Pain radiates to abdomen Quality of pain is described as burning, Pain began gradually, 1 day ago. Is intermittent. Neuro: Level of Consciousness is awake, alert, obeys commands, Oriented to person, place, time, situation, Appropriate for age. Respiratory: Airway is patent Respiratory effort is even, unlabored, Respiratory pattern is regular, symmetrical. GI: Abdomen is round Last BM was May 27, 2021. Reports lower abdominal pain, upper abdominal pain. 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 - Social history:: Smoking status: Patient denies any tobacco usage or history of. Screenin:46 Abuse screen: Denies threats or abuse. Nutritional screening: No deficits noted. ap3 Tuberculosis screening: No symptoms or risk factors identified. Fall Risk None identified. Vital Signs: 08:12 BP 120 / 74; Pulse 74; Resp 16; Temp 97.1; Pulse Ox 100% on R/A; Weight 92.53 kg; iw Height 5 ft. 4 in. (162.56 cm) (R); 08:12 Body Mass Index 35.02 (92.53 kg, 162.56 cm) iw ED Course: 07:52 Patient arrived in ED. as 08:13 Triage completed. iw 08:13 Arm band placed on left wrist. iw 08:14 Kb Haque F[facility]-C is [facility]. la1 08:14 Mohsen Bray MD is Attending Physician. la1 08:31 CBC with Diff Sent. em1 08:31 CMP Sent. em1 08:31 Lipase Sent. em1 08:31 Initial lab(s) drawn, by me, sent to lab. Inserted saline lock: 22 gauge in right em1 forearm, using aseptic technique. Blood collected. 09:35 CT Abd/Pelvis - IV Contrast Only In Process Unspecified. EDMS 10:47 Patient has correct armband on for positive identification. Bed in low position. Call ap3 light in reach. Side rails up X 1. Adult w/ patient. Pulse ox on. NIBP on. Door closed. Noise minimized. 11:44 No provider procedures requiring assistance completed. IV discontinued, intact, ap3 bleeding controlled, No redness/swelling at site. Pressure dressing applied. Administered Medications: 08:28 Drug: Pepcid (famotidine) 20 mg Route: IVP; Site: right forearm; iw 10:36 Follow up: Response: No adverse reaction ap3 08:28 Drug: GI Cocktail without - (Maalox Suspension 30 ml, Lidocaine Liquid 2 % 15 iw ml) Route: PO; 10:36 Follow up: Response: No adverse reaction ap3 09:20 Drug: fentaNYL (PF) 50 mcg Route: IVP; Site: right forearm; ap3 10:35 Follow up: Response: No adverse reaction; Pain is unchanged, physician notified ap3 09:20 Drug: Zofran (Ondansetron) 4 mg Route: IVP; Site: right forearm; ap3 10:35 Follow up: Response: No adverse reaction ap3 10:35 Drug: Dilaudid (HYDROmorphone) 1 mg Route: IVP; Site: right forearm; ap3 11:24 Follow up: Response: No adverse reaction; Pain is decreased ap3 10:35 Drug: Zofran (Ondansetron) 4 mg Route: IVP; Site: right forearm; ap3 11:24 Follow up: Response: No adverse reaction ap3 10:35 Drug: Cipro (ciprofloxacin) 500 mg Route: PO; ap3 11:24 Follow up: Response: No adverse reaction ap3 10:35 Drug: Flagyl (metroNIDAZOLE) 500 mg Route: PO; ap3 11:24 Follow up: Response: No adverse reaction ap3 11:43 Drug: [place] (HYDROcodone-acetaminophen) (7.5 mg-325 mg) 1 tabs Route: PO; ap3 11:44 Follow up: Response: No adverse reaction ap3 Outcome: 11:09 Discharge ordered by . la1 11:44 Discharged to home ambulatory, with family. ap3 11:44 Condition: good 11:44 Discharge instructions given to patient, family, Instructed on discharge instructions, follow up and referral plans. medication usage, Demonstrated understanding of instructions, follow-up care, medications, Prescriptions given X 4. 11:45 Patient left the ED. ap3 Signatures: Dispatcher [employer] Merari Worrell Irene, RN Issac Barney Lee, METALIZING MACHINE OPERATOR AUTOMATIC-C METALIZING MACHINE OPERATOR AUTOMATIC-Annia1 Charlee Saldaña RN RN ap3
[2021-05-28] MEDS ORDERED: HYDROCODONE/APAP 7.5/325 MG TAB ONE (11:39)
[2021-05-28 16:16] VITALS: BP 120/74; TEMP 97.1; O2SAT 100
== END 2021-05-28 11:45 | disposition home or self-care (01) ==
LOC: ER 07:51
DX: A09 Infectious gastroenteritis and colitis, unspecified (principal); Z88.5 Allergy status to narcotic agent; Z88.8 Allergy status to other drugs, medicaments and biological substances
CPT/HCPCS: 85025; 36415; 83690; 80053; 74177; 96375; 96374; 99284; Q9967; J3010; J1170; J2405 ×2; J3490

== ENCOUNTER 2022-06-17 06:42 | Day surgery (SDC) | payer OTHER ==
--- NOTE | 2022-06-12 10:00 | RAD REPORT ---
EXAM DESCRIPTION: [facility] Pa And Lat (2 Views)06/12/2022 8:56 am CLINICAL HISTORY: Pre op pending knee meniscus repair. Hypertension COMPARISON: Chest Pa And Lat (2 Views) dated 10/14/2017; Chest Single View dated 06/18/2017 TECHNIQUE: PA and lateral views of the chest. FINDINGS: The lungs are clear. No pneumothorax or effusion. The cardiomediastinal contours are unrem arkable. IMPRESSION: No acute cardiopulmonary process.
[2022-06-17] MEDS ORDERED: Ringers Lactate 1,000 ML IV ONE (07:11)
[2022-06-17] MEDS ORDERED: CEFAZOLIN SODIUM 2 GM/VIAL ONE (07:11)
[2022-06-17] MEDS ORDERED: BUPIVACAINE 0.25% PF 10 ML VIAL ONE (07:30)
[2022-06-17] MEDS ORDERED: BUPIVACAINE 0.25% PF 30 ML VIAL ONE (07:46)
[2022-06-17] MEDS ORDERED: LIDOCAINE 2% MPF 5 ML VIAL ONE (07:54)
[2022-06-17] MEDS ORDERED: dexAMETHasone 10 MG/ML VIAL ONE (07:54)
[2022-06-17] MEDS ORDERED: FENTANYL CITR 100 MCG/2 ML ONE (07:54)
[2022-06-17] MEDS ORDERED: propofoL 200 MG/20 ML VIAL IV ONE (07:54)
[2022-06-17] MEDS ORDERED: KETOROLAC 30 MG/ML INJ ONE (07:54)
[2022-06-17] MEDS ORDERED: MIDAZOLAM HCL 2 MG/2 ML INJ ONE (07:55)
[2022-06-17] MEDS ORDERED: ONDANSETRON 4 MG/2 ML VIAL ONE (07:56)
[2022-06-17] MEDS ORDERED: NS 0.9% VIAL 20 ML ONE (08:42)
--- NOTE | 2022-06-17 09:34 | P.BOP ---
Preoperative diagnosis: right knee ACL tear, right knee medial meniscus tear Postoperative diagnosis: same, right knee osteoarthritis Primary procedure: right knee arthroscopic partial medial meniscectomy Log Roper: NONE,NONE Estimated blood loss: 3 cc Specimen: none Findings: see dictation Anesthesia: General Complications: None Implants: none Fluids & blood products: per anesthesia record; TT: 35 mins @ 300 mmHg Transferred to: Recovery Room Condition: Good
[2022-06-17] MEDS: HYDROMORPHONE HCL 2 MG/ML inj ONE ×3 (09:41→09:56)
[2022-06-17 10:04] VITALS: O2SAT 98
[2022-06-17 14:09] VITALS: BP 118/59; TEMP 97.1
--- NOTE | 2022-06-19 12:23 | OP ---
Date of Procedure: 06/17/2022 Surgeon: Rommel Rondon MD Preoperative Diagnoses: 1.Right anterior cruciate ligament tear. 2.Medial meniscus tear. Postoperative Diagnoses: 1.Right anterior cruciate ligament tear. 2.Medial meniscus tear. Procedure Performed: Right knee arthroscopic partial medial meniscectomy. Anesthesia: General LMA. Fluids: Per Anesthesia record. Estimated Blood Loss: 3 cc. Complications: None. Implants: None. Tourniquet Time: 35 minutes at 300 mmHg. Indication For Procedure: Susan is a 56-year-old female who presented to my clinic with physical exa m findings as well as MRI findings consistent with a right knee ACL tear and medial meniscus tear. Calderon nevarez also has some underlying osteoarthritis. I discussed with the patient at length the diagnosis as well as treatment plan. Given her underlying osteoarthritis, I did not recommend any reconstruct ion as that may increase her wear in the knee. We also discussed the possible instability in the fut ure. However, our goal would be to treat ACL tear nonoperatively with physical therapy. She also sandoval d a mechanical symptoms and a complex tear of the posterior horn of the medial meniscus. I discussed with the patient at length risks and benefits associated with operative and nonoperative treatment. She expressed understanding and elected to proceed with operative treatment. She had continued pain from the osteoarthritis. We discussed injections in the future. Description Of Procedure: After informed consent was obtained, the patient was identified in the pre operative holding area. The right lower extremity was marked. Patient was then brought back to the operating room, transferred to the operating table in the supine fashion, placed under general LMA an esthesia. The right lower extremity was examined. The patient had full range of motion. She did sandoval ve a grade 1 Juan instability, however, no significant cachexia. Right lower extremity was then p repped and draped in usual sterile fashion. A time-out was initiated. Correct patient and procedure confirmed and identified. The patient did receive preoperative prophylactic antibiotics. The right lower extremity was exsanguinated and tourniquet was inflated to 300 mmHg. Standard anteromedial an d anterolateral portals were created. Arthroscope was brought through the anterolateral portal and d iagnostic arthroscopy was performed. Patient had some mild chondromalacia changes noted at the troch lear groove with some noted within the trochlea groove. No significant chondromalacia not ed on the undersurface of the patella. The arthroscope was above the medial and lateral gutter. The re were no loose bodies within the gutters. The arthroscope was then brought in the medial compartme nt. Diagnostic arthroscopy was performed. 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 She had a complex tear of the post erior horn of the medial meniscus with both radial, horizontal and vertical patterns. A partial medi al meniscectomy was performed using a meniscal biter and arthroscopic shaver. The arthroscope was th en brought in the intercondylar notch. The patient did have intact PCL and a partial tear of the ACL with some femoral attachment still intact. There was no significant debridement of the ACL. The ar throscope was then brought to the lateral compartment where the patient was noted to have an intact l ateral meniscus. There was no significant chondromalacia noted at the lateral compartment. Arthrosc opic instruments were then removed without complication. Wounds were then irrigated thoroughly with normal saline. Portals were approximated using a 4-0 Monocryl. Sterile dressings were applied. Pat ient was awakened and transferred to PACU in stable condition. Postoperative Plan: Patient will be weightbearing as tolerated on the right lower extremity. She wi ll follow up in clinic in 1 week for wound check. CV/MODL Voice ID: [id number] Report ID: [id number]
== END 2022-06-17 11:15 | disposition home or self-care (01) ==
LOC: OR 06:42
PROVIDERS: ATTEND Orthopaedic Surgery Sports Medicine
PROC: 0SBC4ZZ Excision of Right Knee Joint, Percutaneous Endoscopic Approach (ICD-10-PCS; principal; 2022-06-17 08:00)
DX: S83.231A Complex tear of medial meniscus, current injury, right knee, initial encounter (principal); S83.511A Sprain of anterior cruciate ligament of right knee, initial encounter; M17.11 Unilateral primary osteoarthritis, right knee; E66.9 Obesity, unspecified; K21.9 Gastro-esophageal reflux disease without esophagitis; I10 Essential (primary) hypertension; J45.909 Unspecified asthma, uncomplicated; F17.210 Nicotine dependence, cigarettes, uncomplicated
CPT/HCPCS: 71046; A4216; J1100; J1170; J2001; J2250; J2405; J2704; J3010; J7120